=== PATIENT | male | born 1945 | race Two or more races ===

== ENCOUNTER → 2017-06-15 | Outpatient (CLI) | payer MEDICARE, OTHER ==
--- NOTE | 2017-06-15 21:00 | MR ---
EXAMINATION TYPE: MR lumbar spine wo con DATE OF EXAM: 06/15/2017 7:58 PM COMPARISON: NONE HISTORY: Rt side low back pain and leg pain, radiculopathy Multiplanar, MultiSpin echo imaging of the lumbar spine was performed. L1-L2: Mild disc desiccation noted. No herniation, protrusion or disc bulging. No canal stenosis is present. Foramina are patent bilaterally. L2-L3: Mild to moderate disc desiccation. Posterior disc bulge. No evidence for a disc herniation. Bi lateral foraminal encroachment with facet joint arthropathy right greater than left. L3-L4: Moderate disc desiccation. Mild posterior disc bulge. No herniation protrusion or central sten osis. Mild bilateral foraminal encroachment. Facet joint arthropathy. L4-L5: Moderate to severe disc desiccation. Extruded disc herniation with disc material extending pos terior centrally and towards the right. Disc material is seen posterior to the L5 superior endplate t o the right of midline. Sequestered component suspected measuring 11 x 9 mm. There is right lateral r ecess stenosis. Bilateral foraminal encroachment. No evidence for central stenosis. L5-S1: Grade 1 anterolisthesis L5 on S1 measuring 7.6 mm. Moderate to severe disc desiccation. Development And Housing Director ior disc bulge. No poornima herniation or central stenosis. Severe facet joint arthropathy. Lumbar segments are intact. No paraspinal masses are identified. Conus medullaris has a normal appe arance. Rudimentary S1-S2 disc. Endplate marrow changes. IMPRESSION: 1. Multilevel degenerative disc disease. 2. Extruded disc herniation with sequestered component L4-5. Right lateral recess stenosis. See above .
== END | disposition home or self-care (01) ==
LOC: RADMRIMAIN 18:42
PROVIDERS: ATTEND Family Medicine
DX: M48.061 Spinal stenosis, lumbar region without neurogenic claudication (principal); M51.17 Intervertebral disc disorders with radiculopathy, lumbosacral region; M43.16 Spondylolisthesis, lumbar region
CPT/HCPCS: 72148

== ENCOUNTER → 2017-11-03 | Outpatient (CLI) | payer MEDICARE, OTHER ==
[2017-11-03 10:24] LABS: HCT 45.5 % (39.0-53.0); HGB 15.2 gm/dL (13.0-17.5); MCH 32.3 pg (25.0-35.0); MCHC 33.5 g/dL (31.0-37.0); MCV 96.3 fL (80.0-100.0); Mean Platelet Volume 7.8; Platelet Count 199 k/uL (150-450); RBC 4.72 m/uL (4.30-5.90); RDW 12.8 % (11.5-15.5); WBC 5.4 k/uL (3.8-10.6)
[2017-11-03 10:31] LABS: INR 1.1 (<1.2); Partial Thromboplastin Time 25.9 sec (22.0-30.0); Prothrombin Time 10.5 sec (9.0-12.0)
--- NOTE | 2017-11-03 10:32 | XR ---
EXAMINATION TYPE: XR chest 2V DATE OF EXAM: 11/03/2017 COMPARISON: NONE TECHNIQUE: PA and lateral views submitted. HISTORY: Preop FINDINGS: The lungs are clear and there is no pneumothorax, pleural effusion, or focal pneumonia. Arthropathy of the shoulders. IMPRESSION: 1. No acute process.
[2017-11-03 10:41] LABS: Calcium 9.8 mg/dL (8.4-10.2); Potassium 4.5 mmol/L (3.5-5.1)
[2017-11-03 11:21] LABS: Amorphous Sediment,Urine Rare /hpf; Appearance,Urine Cloudy (Clear); Bilirubin,Urine Negative (Negative); Blood,Urine Negative (Negative); Color,Urine Yellow; Glucose,Urine (UA) Negative (Negative); Hyaline Casts,Urine 1 /lpf (0-2); Ketones,Urine Negative (Negative); Leukocyte Esterase,Urine Negative (Negative); Mucus,Urine Occasional /hpf; Nitrite,Urine Negative (Negative); PH, Urine 5.5 (5.0-8.0); Protein,Urine 1+ (Negative); RBC,Urine 3 /hpf (0-5); Specific Gravity,Urine 1.021 (1.001-1.035); Squamous Epithelial Cell,Urine <1 /hpf (0-4); Urobilinogen,Urine <2.0 mg/dL (<2.0); WBC,Urine 2 /hpf (0-5)
[2017-11-03 11:27] LABS: Band Neutrophils % 1 %; Eosinophils # (M) 0.16 k/uL (0-0.7); Lymphocytes # (M) 2.05 k/uL (1.0-4.8); Monocytes # (M) 0.97 k/uL (0-1.0); Neutrophils % (M) 40 %; Nucleated Red Blood Cells 0 /100 WBC (0-0); Total Cells Counted 100
== END | disposition home or self-care (01) ==
LOC: LABPAT 09:07
PROVIDERS: ATTEND Orthopaedic Surgery Orthopaedic Surgery of the Spine
DX: Z01.818 Encounter for other preprocedural examination (principal); Z01.812 Encounter for preprocedural laboratory examination; M48.00 Spinal stenosis, site unspecified
CPT/HCPCS: 71046; 80048; 81001; 85025; 85610; 85730; 87070; 93005

== ENCOUNTER 2017-11-16 10:48 | Inpatient (IN) | payer MEDICARE, OTHER ==
[~2017-11-16 10:48] MED LIST: BACITRACIN 50,000 UNIT, POLYMYXIN B 500,000 UNIT in SODIUM CHLORIDE 0.9% IRRIGATIO 1,00... IRRIGATION ONE; DEXAMETHASONE SOD PHOSPHATE 10 MG/ML 1 ML VIAL IV ONE; HYDROmorphone 0.5 MG/0.5 ML SYRINGE IVP PRN; LACTATED RINGERS 1,000 ML IV SCH; ONDANSETRON 4 MG/2 ML VIAL IVP ONE; ceFAZolin IN SWFI 2 GM/20 ML SYRINGE IVP ONE
[2017-11-16] MEDS ORDERED: LIDOCAINE 1% 20 ML VIAL (10MG/ML) FOR IV START INTRADERMA ONE (11:40)
[2017-11-16 11:48] LABS: Glucose,Whole Blood 116 mg/dL (75-99)
[2017-11-16] MEDS ORDERED: PHENYLEPHRINE-0.9% NACL SYG 1 MG/10 ML SYRINGE ONE (12:55)
[2017-11-16] MEDS ORDERED: MIDAZOLAM 2 MG/2 ML VIAL ONE (12:55)
[2017-11-16] MEDS ORDERED: PROPOFOL 10 MG/ML 20 ML VIAL IV ONE (12:55)
[2017-11-16] MEDS ORDERED: HEPARIN SODIUM,PORCINE 10,000 UNIT/ML 1 ML VIAL ONE (12:55)
[2017-11-16] MEDS ORDERED: SODIUM CHLORIDE 0.9% IRRIG 1,000 ML BTL IRRIGATION ONE (12:55)
[2017-11-16] MEDS ORDERED: SUCCINYLCHOLINE CHLORIDE 100 MG/5 ML SYR IV ONE (12:55)
[2017-11-16] MEDS ORDERED: fentaNYL (PF) 50 MCG/ML 2 ML AMP ONE (12:55)
[2017-11-16] MEDS ORDERED: LIDOCAINE 1% INJ 10MG/ML (20 ML MDV) ONE (12:55)
[2017-11-16] MEDS ORDERED: ePHEDrine SULFATE/0.9% NACL/PF 50 MG/5 ML SYRINGE IV ONE (12:55)
[2017-11-16] MEDS ORDERED: LACTATED RINGERS 1,000 ML IV ONE ×2 (13:00→14:50)
[2017-11-16] MEDS ORDERED: BUPIVACAINE-EPI 0.5%-1:200,000 10 ML VIAL SQ ONE (14:08)
[2017-11-16] MEDS ORDERED: GELATIN SPONGE,ABSORB (LARGE) 1 EACH SPONGE TOPICAL ONE (14:09)
[2017-11-16] MEDS ORDERED: THROMBIN (BOVINE) 5,000 UNIT VIAL TOPICAL ONE (14:09)
[2017-11-16] MEDS ORDERED: HYDROmorphone 1 MG/ML 1 ML SYRINGE IVP PRN (17:08)
[2017-11-16] MEDS ORDERED: BENZOCAINE/MENTHOL LOZENG 1 EACH LOZENGE MUCOUS MEM PRN (17:08)
[2017-11-16] MEDS ORDERED: MAGNESIUM HYDROXIDE 2,400 MG/10 ML CUP PO PRN (17:08)
[2017-11-16] MEDS ORDERED: oxyCODONE-APAP 5-325MG 1 EACH TAB PO PRN (17:11)
--- NOTE | 2017-11-16 17:18 | P.OP ---
Date of Procedure: 11/16/17 Preoperative Diagnosis: Spondylolisthesis L4 5 L5-S1 Herniated nucleus pulposis L4 5 L5-S1 Spinal stenosis L4 5 L5-S1 Low back pain Lower extremity radiculopathy Degenerative disc disease Facet arthrosis Postoperative Diagnosis: Same Anesthesia: GETA Pathology: none sent Condition: stable Disposition: PACU Description of Procedure: DESCRIPTION OF PROCEDURE(S): BRIEF OPERATIVE NOTE Preoperative Diagnosis: Spondylolisthesis L4 5 L5-S1 Herniated nucleus pulposis L4 5 L5-S1 Spinal stenosis L4 5 L5-S1 Low back pain Lower extremity radiculopathy Degenerative disc disease Facet arthrosis Postoperative Diagnosis: Same Procedure: Laminectomy and decompression with wide bilateral foraminotomy L4 5 L5-S1 Minimally invasive Posterior lateral decompression and facet fusion L4 5 L5-S1 Minimally invasive Transforaminal lumbar interbody fusion for a 360 fusion L4 5 L5-S1 Discectomy for decompression L4 5 L5-S1 Placement of interbody graft L4 5 L5-S1 Local autogenous bone grafting Aspiration of bone marrow aspirate. The pedicle of L4 vertebral body Use of Cell Saver Use of bone graft extenders Surgeon: Dr. Pereira Circuitry Negative Inspector: Khoa HEBERT who is present throughout the entire the case persistence during positioning, dissection, exposure, visualization, and all crucial elements of the case as well as closure. Anesthesia: General anesthesia Estimated blood loss: Approximately 500 mL with 160 given back through Cell Saver Complications: None apparent Components implanted: K2M minimally invasive [place] pedicle screw system with 6 screws measuring 6.5 mm in diameter to rods and 2 Chambers expandable interbody 9-12 cages with 1 osteo amp sponge and DBX bone fibers to supplement the local autogenous and bone marrow aspirate graft Disposition: To recovery room in good stable condition. OPERATIVE INDICATIONS The patient has had long-standing issues in their lower back and lower extremities. His found have severe stenosis with disc herniation and spondylolisthesis at L4-L5. He had significant degenerative changes and his findings correlate well with her low back and lower extremity symptoms. The patient has been through conservative treatment. He is not having any lasting benefit despite aggressive conservative treatment over extended period. We discussed various treatment options including surgery, and the patient wishes to proceed with surgery We discussed the risk, patient's alternatives and benefits of surgery including but not limited to, risk of bleeding risk of infection, risk of need for further surgery, risk of decreased, loss of motion, muscle function, malunion nonunion, hardware failure, nerve damage, paralysis, heart attack, blindness and . OPERATIVE SUMMARY After discussing all the risks, patient alternatives and benefits at length, the patient elected to proceed with surgical intervention, signed informed consent, and presented for their procedure. The patient was seen and examined in the preoperative holding area and the surgical site was marked. The patient was given antibiotics and brought to the operating room. The patient was sedated and intubated by anesthesia in standard fashion. The patient was positioned on to the operating room table in a prone position on the appropriate frame which was well-padded and well molded. We were careful to pad any bony prominences and pressure points. We were careful to maintain the patient's cervical spine and good neutral alignment and position throughout. The patient was prepped and draped in a normal standard fashion. An appropriate timeout and keystone protocol performed. We were able to proceed with the surgery. The local wound area was infiltrated with local anesthetic. I was able utilize C-arm guidance to establish appropriate position over the pedicles bilaterally at the appropriate levels at L4-L5 and S1. With the appropriate levels confirmed was able to make small stab incisions over the appropriate pedicle sites bilaterally. Utilizing C-arm in his house able to establish a Jamshidi needle over the lateral aspect of the pedicle and advanced the trocar into the pedicle being careful not to breech superiorly inferiorly medially or laterally. Position was confirmed regularly with AP and lateral images on C-arm. I was able to establish the trocar into the pedicle appropriately into the posterior aspect of the vertebral body bilaterally at the appropriate levels at L4 5 and S1. This was done at each of the pedicle positions and each of the vertebrae. I was able place the guidewire into the trocar and into the vertebral body appropriately under C-arm guidance. Dissection was taken down over the wire to the appropriate starting position for the screw placed. The appropriate length screw was chosen, threaded over the guidewire and screwed appropriately into the pedicle and vertebral body under C-arm guidance in excellent alignment and position with good bony purchase. This is done at each of the screw sites at the appropriate levels at L4-L5 and S1 bilaterally. With the screws intact I extended the incision to connect the screw hole sites on the most symptomatic side on the right. I dissected down to establish access over the pars and lamina to the base of the spinous process. I was able to expose the facet joint. The capsule the facet was taken down and showed some facet arthrosis at the joint. I was able to use a combination of curettes and Kerrison rongeurs and a high-speed drill to take down the facet joint and do a facetectomy. Partial laminectomy was also performed. I was able get excellent foraminal decompression and central decompression with undermining across midline to perform a laminectomy centrally and contralaterally. As able get good central decompression. The ligamentum flavum was taken down to further decompress centrally and at bilateral neural foramen. I was able to expose the disc space and visualize the traversing nerve root. Note was made of some disc protrusion at the level causing further compression of the nerve root. I was able to establish a annulotomy at the appropriate level protecting soft tissue and neural structures. Note was made of some disc desiccation at the disc. I performed a complete discectomy with accommodation of curettes and rasps and scrapers. I was able get good endplate preparation at the disc space. I sized for the appropriate size interbody spacer protecting the soft tissue and neural structures. The wound was copiously irrigated and suctioned dry. There is no evidence of any dural tear or leak. I was able to pack the disc space with local autogenous bone graft as well as a small amount of bone graft which was also placed into the interbody cage itself. Protecting the soft tissue structures and neural structures I was able place the interbody cage in good alignment and good position with good fit and fill at the interbody space. This was done first at L5-S1 and then similarly at L4 5. There was note of extruded disc fragment at L4 5 which was removed as well. The disc eyes were quite large and is able to fill them as best possible with the given between the pedicles. His issues was confirmed with C-arm guidance. Good hemostasis maintained. There is no evidence of any dural tear or leak. The wound was irrigated and suctioned dry. With the hardware intact, intraoperative C-arm imaging was again taken which showed good alignment and position of the hardware at the appropriate levels at L4 5 and S1. We were then able to measure, contour and place the rods and appropriate hardware bilaterally. I was able to place capcrews, tighten them down, and torque them with the torque screwdriver appropriately. With this intact I was able to place the local autogenous bone graft with additional bone graft enhancer as necessary into the posterior lateral gutters over the decorticated transverse processes. The remainder of the bone graft was placed over the facet joint on the contralateral side after taking down the facet joint capsule. With the bone graft intact, a stable construct, and good decompression at the appropriate levels, we were able to proceed with closure. Good hemostasis was maintained. There is no evidence of dural tear or leak. The fascia was closed for a watertight closure. he subcuticular tissue was closed with absorbable suture. The wound was cleaned and dried and dressed with the appropriate dressing. The drapes were broken down. The patient was gently rolled back onto their hospital bed being careful to maintain their cervical spine and good neutral alignment and position. They were woken up by anesthesia, extubated, and brought to the recovery room in good stable condition. The patient will be admitted to the hospital for appropriate postoperative care , medical management and monitoring. We will continue to follow them closely about the postoperative course.
[2017-11-16 20:13] VITALS: BMI 33.5
[2017-11-16] MEDS: SODIUM CHLORIDE 0.9% 1,000 ML IV SCH (20:13)
[2017-11-16] MEDS: traMADol 50 MG TAB PO SCH ×2 (20:14→23:38)
[2017-11-16] MEDS: HYDROmorphone 1 MG/ML 1 ML SYRINGE IVP PRN (21:29)
[2017-11-16] MEDS: ceFAZolin IN SWFI 2 GM/20 ML SYRINGE IVP SCH (23:39)
[2017-11-17] MEDS ORDERED: ceFAZolin 3 GM in SODIUM CHLORIDE 0.9% 100 ML IVPB SCH ×2
[2017-11-17] MEDS: HYDROmorphone 1 MG/ML 1 ML SYRINGE IVP PRN ×4 (01:30→17:06)
[2017-11-17] MEDS: ACETAMINOPHEN TAB 325 MG TAB PO PRN ×3 (02:34→20:14)
[2017-11-17] MEDS: SODIUM CHLORIDE 0.9% 1,000 ML IV SCH ×2 (08:04→20:14)
[2017-11-17] MEDS: traMADol 50 MG TAB PO SCH ×4 (08:25→22:25)
[2017-11-17] MEDS: SENNOSIDES-DOCUSATE SODIUM 1 EACH TAB PO SCH (08:27)
[2017-11-17] MEDS: ceFAZolin IN SWFI 2 GM/20 ML SYRINGE IVP SCH (08:27)
[2017-11-17 08:31] LABS: Basophils # (A) 0.1 k/uL (0-0.2); Basophils % (A) 1 %; Eosinophils # (A) 0.1 k/uL (0-0.7); Eosinophils % (A) 1 %; HCT 39.8 % (39.0-53.0); Lymphocytes # (A) 0.5 k/uL (1.0-4.8); Lymphocytes % (A) 5 %; MCH 32.2 pg (25.0-35.0); MCHC 32.7 g/dL (31.0-37.0); MCV 98.3 fL (80.0-100.0); Mean Platelet Volume 8.4; Monocytes % (A) 26 %; Neutrophils # (A) 6.7 k/uL (1.3-7.7); Neutrophils % (A) 64 %; Platelet Count 151 k/uL (150-450); RBC 4.05 m/uL (4.30-5.90); RDW 13.2 % (11.5-15.5); WBC 10.6 k/uL (3.8-10.6)
[2017-11-17 08:39] LABS: Calcium 8.7 mg/dL (8.4-10.2)
[2017-11-17 08:47] LABS: Potassium 5.5 mmol/L (3.5-5.1)
--- NOTE | 2017-11-17 09:06 | FL ---
EXAMINATION TYPE: FL guidance operating room, XR lumbar spine 2 or 3V DATE OF EXAM: 11/16/2017 COMPARISON: NONE HISTORY: 72-year-old male minimal invasive lumbar spine surgical procedure FINDINGS: Images during placement of L4-S1 posterior fusion hardware with interbody devices. Anterolisthesis at L5-S1 noted. FLUOROSCOPY Fluoroscopy time of 1 minute 8 seconds was used during lumbar spine procedure. 6 image/s document/s the procedure. IMPRESSION: Intraoperative fluoroscopy during posterior and interbody fusion from L4 through S1. Anterolisthesis at L5-S1.
[2017-11-17 10:43] LABS: Monocytes # (A) 2.7 k/uL (0-1.0)
[2017-11-17] MEDS ORDERED: SODIUM POLYSTYRENE SULFONATE 15 GM/60 ML BOTTLE PO STA (11:33)
--- NOTE | 2017-11-17 11:49 | P.CONS ---
History of Present Illness - Reason for Consult Consult date: 11/17/17 Medical management Requesting physician: Albert Pereira - Chief Complaint Spinal stenosis - History of Present Illness This is a 72-year-old male patient of Dr. Dong. Patient presented for an elective lumbar decompression fusion transforaminal lumbar interbody fusion of L4-L5 and L5- S1. Patient has a known past medical history of coronary artery , GERD, hyperlipidemia, hypertension and appendectomy. At this time patient is resting comfortably in bed. Patient does complain of moderate back pain. Patient is having low-grade temps. Patient does state that he is having burning with urination. Urinary analysis and urine culture have been ordered. Patient denies cough or upper respiratory symptoms. Patient denies nausea vomiting or diarrhea. Potassium 5.5. Patient's home medication of losartan potassium and dose of Kayexalate will be given. Review of Systems Please refer to HPI otherwise unremarkable Past Medical History Past Medical History: Coronary Artery Disease (CAD), GERD/Reflux, Hyperlipidemia , Hypertension, Musculoskeletal Disorder Additional Past Medical History / Comment(s): HX OF POLYP colon. LUMBAR PAIN. History of Any Multi-Drug Resistant Organisms: None Reported Past Surgical History: Appendectomy, Orthopedic Surgery Additional Past Surgical History / Comment(s): CHRIS ROTATOR CUFF, CHRIS CATARACT SX , LT CAROTID ENDARTECTOMY. COLONOSCOPY. EPIDURALS, LAST 08/2017. Lumbar fusion L4-S1 post transforaminal 11/16/17 Past Anesthesia/Blood Transfusion Reactions: Previous Problems w/ Anesthesia Additional Past Anesthesia/Blood Transfusion Reaction / Comm: B/P DROPPED POST OP Past Psychological History: No Psychological Hx Reported Smoking Status: Former smoker Past Alcohol Use History: Occasional Additional Past Alcohol Use History / Comment(s): SMOKED 25 YEARS, 2-3 PPD, QUIT 1992 Past Drug Use History: None Reported - Past Family History Sister(s) Family Medical History: Cancer Additional Family Medical History / Comment(s): BLADDER Medications and Allergies Home Medications Medication Instructions Recorded Confirmed Type Losartan Potassium 100 mg PO QAM 12/01/14 11/16/17 History Omeprazole [PriLOSEC] 20 mg PO DAILY 12/01/14 11/16/17 History amLODIPine [Norvasc] 5 mg PO QAM 12/01/14 11/16/17 History Aspirin [Adult Low Dose Aspirin EC] 81 mg PO DAILY 11/04/17 11/16/17 History Atorvastatin [Lipitor] 40 mg PO DAILY 11/04/17 11/16/17 History Cyclobenzaprine [Flexeril] 10 mg PO BID PRN 11/04/17 11/16/17 History Ibuprofen [Motrin Ib] 400 - 600 mg PO Q6H PRN 11/04/17 11/16/17 History Metoprolol Succinate [Toprol XL] 50 mg PO DAILY 11/04/17 11/16/17 History Gabapentin [Neurontin] 600 mg PO Q8HR PRN 11/10/17 11/16/17 History Allergies Allergy/AdvReac Type Severity Reaction Status Date / Time hydrocodone bitartrate AdvReac RACING Verified 11/16/17 17:18 [From Vicodin] HEART Physical Exam Vitals: Vital Signs Temp Pulse Pulse Resp BP BP Pulse Ox 11/17/17 07:52 99.0 F 101 H 20 147/69 98 11/17/17 05:00 99 F 72 18 132/60 93 L 11/17/17 02:00 99.1 F 11/17/17 00:00 100.4 F H 85 18 154/67 97 11/16/17 21:55 98.2 F 67 18 105/59 92 L 11/16/17 20:45 69 20 125/62 96 11/16/17 20:30 67 18 122/62 96 11/16/17 20:15 74 18 132/70 97 11/16/17 20:00 72 18 130/63 97 11/16/17 19:45 68 18 121/56 97 11/16/17 19:30 68 20 136/60 98 11/16/17 19:15 70 18 116/59 95 11/16/17 19:00 69 18 109/56 96 11/16/17 18:45 97.5 F L 80 22 114/57 95 11/16/17 18:15 77 16 118/60 96 11/16/17 18:04 77 16 113/60 99 11/16/17 17:47 73 16 115/63 99 11/16/17 17:31 75 16 127/59 98 11/16/17 17:21 98 F 82 16 117/87 96 Intake and Output 11/16/17 11/17/17 11/17/17 22:59 06:59 14:59 Intake Total 0 1075 Output Total 850 800 Balance -850 1075 -800 Intake: IV 0 Intake, IV Titration 675 Amount Sodium Chloride 0.9% 1, 675 000 ml @ 75 mls/hr IV . [id number] [facility] Rx#:[id number] Oral 400 Output: Urine 350 800 Estimated Blood Loss 500 Other: Voiding Method Urinal Incontinent # Voids 2 1 Weight 118.5 kg Head normocephalic Neck supple Lungs clear to auscultation bilaterally no wheezing or crackles Heart regular rate and rhythm S1-S2, no rub or gallop Abdomen is soft nontender nondistended positive bowel sounds no hepatosplenomegaly Extremities no edema Neuro alert and orientated to 3 Results CBC & Chem 7: 11/17/17 07:13 11/17/17 07:13 Labs: Abnormal Lab Results - Last 24 Hours (Table) 11/16/17 11/17/17 11/17/17 Range/Units 11:36 07:13 07:13 RBC 4.05 L (4.30-5.90) m/uL Lymphocytes # 0.5 L (1.0-4.8) k/uL Monocytes # 2.7 H (0-1.0) k/uL Potassium 5.5 H (3.5-5.1) mmol/L Carbon Dioxide 19 L (22-30) mmol/L Glucose 117 H (74-99) mg/dL POC Glucose (mg/dL) 116 H (75-99) mg/dL Assessment and Plan Assessment: 1. Status post lumbar decompression fusion transforaminal lumbar interbody fusion of L4-L5 and L5-S1 with Dr. Pereira. Patient is postop day 1. Patient does complain of moderate back pain at this time. Pain meds per surgical services. 2. Febrile. temp of 100.4. Patient is complaining of burning with urination. Urinalysis and urine culture have been ordered. 3. Hyperkalemia. Potassium 5.5. Kayexalate ordered. Home medication of losartan potassium held. Recheck ordered for 1800 today 4. History of essential hypertension, home medications of Norvasc and Lopressor resumed 5. History of GERD. 6. History of coronary artery disease DVT prophylaxis SCDs per surgical services. GI prophylaxis protonix Thank you for this consultation we will continue to follow patient closely throughout stay Time with Patient: Greater than 30 (Greater than 60% of the total time spent in counseling and coordination of care. I performed an examination of the patient and discussed their management with the Nurse Practitioner. I have reviewed the Nurse Practitioner's notes and agree with the documented findings and plan of care)
[2017-11-17 11:54] LABS: Appearance,Urine Clear (Clear); Bilirubin,Urine Negative (Negative); Blood,Urine Moderate (Negative); Color,Urine Yellow; Glucose,Urine (UA) Negative (Negative); Ketones,Urine Negative (Negative); Leukocyte Esterase,Urine Negative (Negative); Mucus,Urine Rare /hpf; Nitrite,Urine Negative (Negative); PH, Urine 5.5 (5.0-8.0); Protein,Urine Negative (Negative); RBC,Urine 21 /hpf (0-5); Specific Gravity,Urine 1.012 (1.001-1.035); Urobilinogen,Urine <2.0 mg/dL (<2.0); WBC,Urine 4 /hpf (0-5)
[2017-11-17] MEDS: GABAPENTIN 300 MG CAP PO PRN (20:36)
--- NOTE | 2017-11-17 21:04 | P.PN ---
Progress Note - Text Progress Note Date: 11/17/17 Orthopedic Spine Patient is a pleasant 72 year old male who is seen and examined at the bedside following posterior lateral decompression and fusion performed yesterday. Patient states they are doing ok postsurgically. He recently received Dilaudid and states his pain is currently controlled. He is drowsy. He has been experiencing posterior cervical pain postoperatively. He continues to experience right lower extremity radiculopathy. He was able to get out of bed yesterday but has not been out of bed yet today. Currently does not complain of nausea, vomiting, fever, or chills. Patient states pain has been adequately controlled. Patient is eating and voiding freely without difficulty. He has had some running with urination. Medicine has ordered a urinalysis with culture. Physical Exam Lumbar Fusion: Status post surgical day number 1 Patient is awake, alert, and oriented 3 Vital signs stable Good chest excursion with deep inspiration and expiration Abdomen soft nontender Dorsiflexion, plantarflexion, and extensor hallucis longus positive sustained bilaterally No signs or symptoms of DVT; no calf pain; pneumatic cuffs intact bilateral lower extremities Dressing is intact with blood over the dressing; no erythema, purulence, or signs of infection Neurovascularly intact bilaterally lower extremities Mild pain with palpation along the posterior cervical spine Assessment: L4-5 and L5-S1 minimally invasive posterior lateral decompression and fusion with transforaminal lumbar interbody fusion Low back pain Posterior cervical pain Plan: 1. Ambulate as tolerated; work with Physical Therapy to increase mobilization 2. Continue pain control with IV and oral medications 3. Dressing will be changed to Telfa and Tegaderm prior to patient working through therapy 4. Medical management can continue to manage patient for patient's other medical issues 5. We will continue to follow the patient closely 6. Patient can follow-up with Khoa Zarate PA-C or Dr. Joesph Pereira at [facility] in 2-3 weeks following discharge
[2017-11-18] MEDS: ACETAMINOPHEN TAB 325 MG TAB PO PRN ×4 (02:41→22:59)
[2017-11-18] MEDS: GABAPENTIN 300 MG CAP PO PRN ×3 (04:23→22:57)
[2017-11-18] MEDS: ONDANSETRON 4 MG/2 ML VIAL IVP PRN ×2 (07:37→17:31)
[2017-11-18] MEDS: SODIUM CHLORIDE 0.9% 1,000 ML IV SCH ×2 (08:26→22:45)
[2017-11-18] MEDS: traMADol 50 MG TAB PO SCH (08:28)
[2017-11-18] MEDS: PANTOPRAZOLE 40 MG TABLET PO SCH (08:29)
[2017-11-18] MEDS: amLODIPine 5 MG TAB PO SCH (08:29)
[2017-11-18] MEDS: ATORVASTATIN 40 MG TAB PO SCH (08:29)
[2017-11-18] MEDS: SENNOSIDES-DOCUSATE SODIUM 1 EACH TAB PO SCH (08:29)
[2017-11-18] MEDS: METOPROLOL SUCCINATE (ER) 50 MG TAB.ER.24H PO SCH (08:29)
[2017-11-18 10:27] LABS: ALT 33 U/L (21-72); AST 71 U/L (17-59); Albumin 3.2 g/dL (3.5-5.0); Alkaline Phosphatase 68 U/L (38-126); Anion Gap 10 mmol/L; Blood Urea Nitrogen 10 mg/dL (9-20); Calcium 8.6 mg/dL (8.4-10.2); Carbon Dioxide 28 mmol/L (22-30); Chloride 98 mmol/L (98-107); Glucose 157 mg/dL (74-99); Potassium 4.2 mmol/L (3.5-5.1); Sodium 136 mmol/L (137-145); Total Bilirubin 1.1 mg/dL (0.2-1.3); Total Protein 5.9 g/dL (6.3-8.2)
[2017-11-18 10:30] LABS: Basophils # (A) 0.1 k/uL (0-0.2); Basophils % (A) 1 %; Eosinophils # (A) 0.3 k/uL (0-0.7); Eosinophils % (A) 1 %; HCT 37.6 % (39.0-53.0); HGB 12.2 gm/dL (13.0-17.5); Lymphocytes # (A) 0.7 k/uL (1.0-4.8); Lymphocytes % (A) 4 %; MCH 31.3 pg (25.0-35.0); MCHC 32.4 g/dL (31.0-37.0); MCV 96.6 fL (80.0-100.0); Mean Platelet Volume 10.5; Monocytes % (A) 21 %; Neutrophils # (A) 13.5 k/uL (1.3-7.7); Neutrophils % (A) 71 %; Platelet Count 144 k/uL (150-450); RBC 3.89 m/uL (4.30-5.90); RDW 13.1 % (11.5-15.5)
[2017-11-18 10:51] LABS: Polychromasia Present
[2017-11-18] MEDS ORDERED: traMADol 50 MG TAB PO PRN ×2 (12:18→12:25)
--- NOTE | 2017-11-18 12:24 | P.PN ---
Progress Note - Text Progress Note Date: 11/18/17 Orthopedic Spine Patient is a pleasant 72 year old male who is seen and examined at the bedside following posterior lateral decompression and fusion performed Thursday. Patient states he has improved postsurgically as compared to yesterday. He is not currently experiencing significant pain at the surgical site. He denies any lower extremity radiculopathy bilaterally. He feels his legs have significantly improved postoperatively. Most significant complaint is ongoing posterior cervical pain. He has also been experiencing increased headaches since yesterday. He has been receiving Ultram for some control his symptoms. He is unable to take Edgar as it elevates his heart rate. Have been weaning the patient off of Dilaudid. He is eating and voiding without difficulty. He is not having significant burning with urination. He is passing gas but has not had a bowel movement. He has been able to ambulate the hallways with physical therapy. He continues to be seen by medicine. Physical Exam Lumbar Fusion: Status post surgical day number 2 Patient is awake, alert, and oriented 3 Vital signs stable Good chest excursion with deep inspiration and expiration Abdomen soft nontender Dorsiflexion, plantarflexion, and extensor hallucis longus positive sustained bilaterally No signs or symptoms of DVT; no calf pain; pneumatic cuffs intact bilateral lower extremities Dressing is clean, dry, and intact; no erythema, purulence, or signs of infection No significant pain with palpation over the surgical sites Neurovascularly intact bilaterally lower extremities No significant increased pain with palpation along the posterior cervical spine Assessment: L4-5 and L5-S1 minimally invasive posterior lateral decompression and fusion with transforaminal lumbar interbody fusion Low back pain Posterior cervical pain Headaches Plan: 1. Ambulate as tolerated; work with Physical Therapy to increase mobilization 2. Continue pain control with IV and oral medications; we are continuing to wean the patient off of Dilaudid IV. We will increase Ultram 50 mg 1-2 tabs every 6 hours as needed for pain. 3. Dressing has been changed to Telfa and Tegaderm; keep dressing intact. 4. Medical management can continue to manage patient for patient's other medical issues 5. We will continue to follow the patient closely 6. Patient can follow-up with Khoa Zarate PA-C or Dr. Joesph Pereira at [facility] in 2-3 weeks following discharge
--- NOTE | 2017-11-18 14:07 | P.PN ---
Subjective Progress Note Date: 11/18/17 This is a 72-year-old male patient of Dr. Dong. Patient presented for an elective lumbar decompression fusion transforaminal lumbar interbody fusion of L4-L5 and L5- S1. Patient has a known past medical history of coronary artery , GERD, hyperlipidemia, hypertension and appendectomy. At this time patient is resting comfortably in bed. Patient does complain of moderate back pain. Patient is having low-grade temps. Patient does state that he is having burning with urination. Urinary analysis and urine culture have been ordered. Patient denies cough or upper respiratory symptoms. Patient denies nausea vomiting or diarrhea. Potassium 5.5. Patient's home medication of losartan potassium and dose of Kayexalate will be given. On 11/18/2017 patient is currently alert and oriented 3. Patient is resting comfortably in bed. Repeat potassium improved to 4.2. White blood cell increasing to 19.0. At this time patient denies cough, sore throat or ear pain. Patient denies chest pain or shortness of breath. Patient did complain of burning with urination yesterday UA completed showing moderate amount of blood but negative for leukocyte Estrace. Urine culture completed showing no growth after 18 hours. Today patient denies any urinary burning or frequency. Patient denies any nausea vomiting or diarrhea. Objective - Vital Signs Vital signs: Vital Signs Temp 98.9 F 11/18/17 12:05 Pulse 78 11/18/17 12:05 Resp 20 11/18/17 12:05 BP 131/63 11/18/17 12:05 Pulse Ox 94 L 11/18/17 05:45 Intake & Output 11/17/17 11/18/17 11/18/17 18:59 06:59 18:59 Intake Total 1700 1075 Output Total 1260 230 Balance 440 1075 -230 Intake: Intake, IV Titration 600 675 Amount Sodium Chloride 0.9% 1, 600 675 000 ml @ 75 mls/hr IV . [id number] [facility] Rx#:[id number] Oral 1100 400 Output: Urine 1260 230 Other: Voiding Method Urinal Urinal Urinal Incontinent # Voids 4 1 1 - Exam Head normocephalic Neck supple Lungs clear to auscultation bilaterally no wheezing or crackles Heart regular rate and rhythm S1-S2, no rub or gallop Abdomen is soft nontender nondistended positive bowel sounds no hepatosplenomegaly Extremities no edema. Neuro alert and orientated to 3 Dressing to back clean dry and intact - Labs CBC & Chem 7: 11/18/17 09:39 11/18/17 09:39 Labs: Abnormal Lab Results - Last 24 Hours (Table) 11/18/17 11/18/17 Range/Units 09:39 09:39 WBC 19.0 H (3.8-10.6) k/uL RBC 3.89 L (4.30-5.90) m/uL Hgb 12.2 L (13.0-17.5) gm/dL Hct 37.6 L (39.0-53.0) % Plt Count 144 L (150-450) k/uL Neutrophils # 13.5 H (1.3-7.7) k/uL Lymphocytes # 0.7 L (1.0-4.8) k/uL Monocytes # 4.0 H (0-1.0) k/uL Sodium 136 L (137-145) mmol/L Glucose 157 H (74-99) mg/dL AST 71 H (17-59) U/L Total Protein 5.9 L (6.3-8.2) g/dL Albumin 3.2 L (3.5-5.0) g/dL Microbiology - Last 24 Hours (Table) 11/17/17 10:45 Urine Culture - Final Urine,Voided Assessment and Plan Assessment: 1. Status post lumbar decompression fusion transforaminal lumbar interbody fusion of L4-L5 and L5-S1 with Dr. Pereira. Patient is postop day 1. Patient does complain of moderate back pain at this time. Pain meds per surgical services. 2. Febrile. temp of 100.4. Patient is complaining of burning with urination. Urinalysis and urine culture have been ordered. Urinalysis completed showing moderate amount of blood but negative for leukocyte esterase. Urine culture negative. Patient has remained afebrile 3. Hyperkalemia. Potassium 5.5. Kayexalate ordered. Home medication of losartan potassium held. Recheck ordered for 1800 today 4. History of essential hypertension, home medications of Norvasc and Lopressor resumed 5. History of GERD. 6. History of coronary artery disease 7. Leukocytosis. White blood cell increasing to 19.0. Patient denies any symptoms at this time. Blood and sputum cultures have been ordered. Dr. Duran consulted for infectious disease. Urine culture negative DVT prophylaxis SCDs per surgical services. GI prophylaxis protonix Thank you for this consultation we will continue to follow patient closely throughout stay
--- NOTE | 2017-11-18 21:29 | P.CONS ---
History of Present Illness - Reason for Consult Consult date: 11/18/17 - Chief Complaint back pain with radiculopathy - History of Present Illness Pleasant 72-year-old male who is had a many month history of increasing back pain that has been associated with increasing weakness of his left lower extremity. The patient had evaluations revealed evidence of spinal stenosis and consequently he was taken to the operating room and underwent laminectomy and decompression with foraminotomy L4 L5 S1 and underwent a transforaminal lumbar interbody fusion as well as discectomy. Postoperatively the patient had marked improvement of his weakness and numbness to the left leg. However started developed a bit of a headache which worsened. There is evidence of leukocytosis and with this the infectious diseases consultation was requested. At this time this pleasant gentleman is feeling somewhat better and is able to rest much better than he has throughout the day. He's had no significant fevers or chills there has been no rigors and no other acute new symptoms. He's been able to sit at the side of the bed and ambulate within his room without great difficulties. There's been no complaint of significant drainage from the surgical wound. Review of Systems HEENT:complaints of headache but no acute visual change. Denies sinus or mouth discomforts. Denies neck stiffness or pain. Denies significant oral cavity pain. Denies difficulty on swallowing. Lungs: Denies significant shortness of breath, cough, sputum production, or hemoptysis. Cardiovascular: Denies significant shortness of breath, chest pain, chest wall pain, orthopnea, dyspnea on exertion, syncope Gastrointestinal:Denies nausea, vomiting, diarrhea, constipation, hematemesis, melena, hematochezia. No no significant change of bowel habit noticed. Musculoskeletal: is having significant back pain and difficulty with the left lower extremity now improving postoperatively Skin: Denies new rash or lesions. No new ulcers or wounds are related.. Neuro: Denies headache or visual change. Denies any new onset weakness or difficulty with ambulation. Denies falls or seizures. Psychiatric:Denies anxiety or depression. Endocrine: Denies significant fatigue, denies significant weight loss or weight gain. Past Medical History Past Medical History: Coronary Artery Disease (CAD), GERD/Reflux, Hyperlipidemia , Hypertension, Musculoskeletal Disorder Additional Past Medical History / Comment(s): HX OF POLYP colon. LUMBAR PAIN. History of Any Multi-Drug Resistant Organisms: None Reported Past Surgical History: Appendectomy, Orthopedic Surgery Additional Past Surgical History / Comment(s): CHRIS ROTATOR CUFF, CHRIS CATARACT SX , LT CAROTID ENDARTECTOMY. COLONOSCOPY. EPIDURALS, LAST 08/2017. Lumbar fusion L4-S1 post transforaminal 11/16/17 Past Anesthesia/Blood Transfusion Reactions: Previous Problems w/ Anesthesia Additional Past Anesthesia/Blood Transfusion Reaction / Comm: B/P DROPPED POST OP Past Psychological History: No Psychological Hx Reported Additional Psychological History / Comment(s): and lives in the family home with his . Retired dairy truck driver. Was in the [employer] and was stationed in [email or web address] without specific illnesses, no known agent orange exposure. No current tobacco smoker or alcohol user. No international travel since his days. No animals in the home Smoking Status: Former smoker Past Alcohol Use History: Occasional Additional Past Alcohol Use History / Comment(s): SMOKED 25 YEARS, 2-3 PPD, QUIT 1992 Past Drug Use History: None Reported - Past Family History Sister(s) Family Medical History: Cancer Additional Family Medical History / Comment(s): BLADDER Medications and Allergies Home Medications and Allergies Comment(s): Current Medications Acetaminophen (Tylenol Tab) 650 mg PO Q6HR PRN PRN Reason: Fever and/ or Pain Last Admin: 11/18/17 17:31 Dose: 650 mg Amlodipine Besylate (Norvasc) 5 mg PO QAM [facility] Last Admin: 11/18/17 08:29 Dose: 5 mg Atorvastatin Calcium (Lipitor) 40 mg PO DAILY [facility] Last Admin: 11/18/17 08:29 Dose: 40 mg Benzocaine/Menthol (Cepacol Lozenge) 1 each MUCOUS MEM Q4HR PRN PRN Reason: Sore Throat Gabapentin (Neurontin) 600 mg PO Q8HR PRN PRN Reason: Pain Last Admin: 11/18/17 12:55 Dose: 600 mg Hydromorphone HCl (Dilaudid) 0.5 mg IVP Q4HR PRN PRN Reason: Moderate Pain Hydromorphone HCl (Dilaudid) 1 mg IVP Q4HR PRN PRN Reason: Severe Pain Last Admin: 11/17/17 17:06 Dose: 1 mg Sodium Chloride (Saline 0.9%) 1,000 mls @ 75 mls/hr IV .[id number] [facility] Last Admin: 11/18/17 08:26 Dose: Not Given Magnesium Hydroxide (Milk Of Magnesia) 2,400 mg PO DAILY PRN PRN Reason: Constipation Metoprolol Succinate (Toprol Xl) 50 mg PO DAILY [facility] Last Admin: 11/18/17 08:29 Dose: 50 mg Ondansetron HCl (Zofran) 4 mg IVP Q8HR PRN PRN Reason: Nausea And Vomiting Last Admin: 11/18/17 17:31 Dose: 4 mg Oxycodone/Acetaminophen (Percocet 5-325) 1 each PO Q4HR PRN PRN Reason: Moderate Pain Pantoprazole Sodium (Protonix) 40 mg PO -BRKFST [facility] Last Admin: 11/18/17 08:29 Dose: 40 mg Senna/Docusate Sodium (Senokot-S) 1 each PO DAILY [facility] Last Admin: 11/18/17 08:29 Dose: 1 each Tramadol HCl (Ultram) 50 mg PO QID PRN PRN Reason: Pain Tramadol HCl (Ultram) 100 mg PO QID PRN PRN Reason: Pain Home Medications Medication Instructions Recorded Confirmed Type Losartan Potassium 100 mg PO QAM 12/01/14 11/16/17 History Omeprazole [PriLOSEC] 20 mg PO DAILY 12/01/14 11/16/17 History amLODIPine [Norvasc] 5 mg PO QAM 12/01/14 11/16/17 History Aspirin [Adult Low Dose Aspirin EC] 81 mg PO DAILY 11/04/17 11/16/17 History Atorvastatin [Lipitor] 40 mg PO DAILY 11/04/17 11/16/17 History Cyclobenzaprine [Flexeril] 10 mg PO BID PRN 11/04/17 11/16/17 History Ibuprofen [Motrin Ib] 400 - 600 mg PO Q6H PRN 11/04/17 11/16/17 History Metoprolol Succinate [Toprol XL] 50 mg PO DAILY 11/04/17 11/16/17 History Gabapentin [Neurontin] 600 mg PO Q8HR PRN 11/10/17 11/16/17 History Allergies Allergy/AdvReac Type Severity Reaction Status Date / Time hydrocodone bitartrate AdvReac RACING Verified 11/16/17 17:18 [From Vicodin] HEART Physical Exam Vitals: Vital Signs Temp Pulse Pulse Pulse Resp BP BP 11/18/17 16:00 70 80 78 20 11/18/17 12:05 98.9 F 78 20 131/63 11/18/17 10:38 70 11/18/17 08:00 80 18 11/18/17 05:45 98.3 F 80 18 164/81 Pulse Ox 11/18/17 16:00 11/18/17 12:05 11/18/17 10:38 11/18/17 08:00 11/18/17 05:45 94 L Intake and Output 11/18/17 11/18/17 11/18/17 06:59 14:59 22:59 Intake Total 1075 720 120 Output Total 230 Balance 1075 490 120 Intake: Intake, IV Titration 675 0 Amount Sodium Chloride 0.9% 1, 675 0 000 ml @ 75 mls/hr IV . [id number] [facility] Rx#:[id number] Oral 400 720 120 Output: Urine 230 Other: Voiding Method Urinal Urinal Urinal # Voids 1 3 3 pleasant 78-year-old gentleman was resting without difficulties upon arrival HEENT: Anicteric conjunctiva are pink and moist nasal mucosa grossly intact without significant lesions, there is no thrush. Neck: The neck is supple without significant lymphadenopathy or thyromegaly. Lungs: Good bilateral air entry without significant crackles or wheezing. There is no significant bronchial sounds. There is no egophony or dullness. Heart: Regular rate and rhythm with an audible S1-S2, no S3 no S4. There is no significant murmur click or rub, PMI was nondisplaced. Abdomen: Positive bowel sounds soft and nontender without palpable masses or organomegaly. There was no guarding or rebound. Extremities: The upper extremities have excellent pulses they are symmetric, no significant petechiae or telangiectasia. No splinter hemorrhages were noted. The lower extremities are free from significant edema. The peripheral pulses were 2+ and symmetric. Neuro: resting but no acute changes are noted. Dressing is in place without drainage. Results CBC & Chem 7: 11/18/17 09:39 11/18/17 09:39 Labs: Abnormal Lab Results - Last 24 Hours (Table) 11/18/17 11/18/17 Range/Units 09:39 09:39 WBC 19.0 H (3.8-10.6) k/uL RBC 3.89 L (4.30-5.90) m/uL Hgb 12.2 L (13.0-17.5) gm/dL Hct 37.6 L (39.0-53.0) % Plt Count 144 L (150-450) k/uL Neutrophils # 13.5 H (1.3-7.7) k/uL Lymphocytes # 0.7 L (1.0-4.8) k/uL Monocytes # 4.0 H (0-1.0) k/uL Sodium 136 L (137-145) mmol/L Glucose 157 H (74-99) mg/dL AST 71 H (17-59) U/L Total Protein 5.9 L (6.3-8.2) g/dL Albumin 3.2 L (3.5-5.0) g/dL Microbiology - Last 24 Hours (Table) 11/17/17 10:45 Urine Culture - Final Urine,Voided Laboratory Results WBC 19.0 k/uL (3.8-10.6) H 11/18/17 09:39 RBC 3.89 m/uL (4.30-5.90) L 11/18/17 09:39 Hgb 12.2 gm/dL (13.0-17.5) L 11/18/17 09:39 Hct 37.6 % (39.0-53.0) L 11/18/17 09:39 MCV 96.6 fL (80.0-100.0) 11/18/17 09:39 MCH 31.3 pg (25.0-35.0) 11/18/17 09:39 MCHC 32.4 g/dL (31.0-37.0) 11/18/17 09:39 RDW 13.1 % (11.5-15.5) 11/18/17 09:39 Plt Count 144 k/uL (150-450) L 11/18/17 09:39 Neutrophils % 71 % 11/18/17 09:39 Lymphocytes % 4 % 11/18/17 09:39 Monocytes % 21 % 11/18/17 09:39 Eosinophils % 1 % 11/18/17 09:39 Basophils % 1 % 11/18/17 09:39 Neutrophils # 13.5 k/uL (1.3-7.7) H 11/18/17 09:39 Lymphocytes # 0.7 k/uL (1.0-4.8) L 11/18/17 09:39 Monocytes # 4.0 k/uL (0-1.0) H 11/18/17 09:39 Eosinophils # 0.3 k/uL (0-0.7) 11/18/17 09:39 Basophils # 0.1 k/uL (0-0.2) 11/18/17 09:39 Manual Slide Review Performed 11/18/17 09:39 Polychromasia Present 11/18/17 09:39 Sodium 136 mmol/L (137-145) L 11/18/17 09:39 Potassium 4.2 mmol/L (3.5-5.1) 11/18/17 09:39 Chloride 98 mmol/L (98-107) 11/18/17 09:39 Carbon Dioxide 28 mmol/L (22-30) 11/18/17 09:39 Anion Gap 10 mmol/L 11/18/17 09:39 BUN 10 mg/dL (9-20) 11/18/17 09:39 Creatinine 0.69 mg/dL (0.66-1.25) 11/18/17 09:39 Est GFR (CKD-EPI)AfAm >90 (>60 ml/min/1.73 sqM) 11/18/17 09:39 Est GFR (CKD-EPI)NonAf >90 (>60 ml/min/1.73 sqM) 11/18/17 09:39 Glucose 157 mg/dL (74-99) H 11/18/17 09:39 POC Glucose (mg/dL) 116 mg/dL (75-99) H 11/16/17 11:36 POC Glu Mixing Machine Tender Cork Gasket LILLIAN Lashanda Hoang 11/16/17 11:36 Calcium 8.6 mg/dL (8.4-10.2) 11/18/17 09:39 Total Bilirubin 1.1 mg/dL (0.2-1.3) 11/18/17 09:39 AST 71 U/L (17-59) H 11/18/17 09:39 ALT 33 U/L (21-72) 11/18/17 09:39 Alkaline Phosphatase 68 U/L (38-126) 11/18/17 09:39 Total Protein 5.9 g/dL (6.3-8.2) L 11/18/17 09:39 Albumin 3.2 g/dL (3.5-5.0) L 11/18/17 09:39 Urine Color Yellow 11/17/17 10:45 Urine Appearance Clear (Clear) 11/17/17 10:45 Urine pH 5.5 (5.0-8.0) 11/17/17 10:45 Ur Specific [place] 1.012 (1.001-1.035) 11/17/17 10:45 Urine Protein Negative (Negative) 11/17/17 10:45 Urine Glucose (UA) Negative (Negative) 11/17/17 10:45 Urine Ketones Negative (Negative) 11/17/17 10:45 Urine Blood Moderate (Negative) H 11/17/17 10:45 Urine Nitrite Negative (Negative) 11/17/17 10:45 Urine Bilirubin Negative (Negative) 11/17/17 10:45 Urine Urobilinogen <2.0 mg/dL (<2.0) 11/17/17 10:45 Ur Leukocyte Esterase Negative (Negative) 11/17/17 10:45 Urine RBC 21 /hpf (0-5) H 11/17/17 10:45 Urine WBC 4 /hpf (0-5) 11/17/17 10:45 Urine Mucus Rare /hpf (None) H 11/17/17 10:45 Blood Type O Positive 11/12/17 11:04 Blood Type Confirm O Positive 11/16/17 11:35 Blood Type Recheck CABO Indicated 11/12/17 11:04 Antibody Screen NEGATIVE 11/12/17 11:04 Spec Expiration Date 11/18/2017230311/12/17 11:04 Microbiology 11/17/17 10:45 Urine,Voided Urine Culture - Final Assessment and Plan (1) Spinal stenosis Current Visit: Yes Status: Acute Code(s): M48.00 - SPINAL STENOSIS, SITE UNSPECIFIED SNOMED Code(s): 60990666 (2) Leukocytosis Narrative/Plan: Pleasant 72-year-old male presented to Hospital for his elective spinal surgery for his spinal stenosis. Surgery went well he overspent having a post surgical headache and there is evidence of leukocytosis. With these concerns the infectious diseases consultation was requested. The patient has had a T-max of 100.4 since his admission. No other sensations of fever or chills have occurred. The patient received some Tylenol and he is able to rest quite readily with this. At this time there is no evidence of any underlying infection likely just postoperative and will be rechecked in the morning. If headache continues will offer some Fioricet. We'll monitor fever and how he is responding. If headache continues to worsen with discussed with orthopedic spine the possibility of dural leak resulting in a spinal headache. Current Visit: Yes Status: Acute Code(s): D72.829 - ELEVATED WHITE BLOOD CELL COUNT, UNSPECIFIED SNOMED Code(s): 514536099 (3) Generalized headache Current Visit: Yes Status: Acute Code(s): R51 - HEADACHE SNOMED Code(s): 535607070
[2017-11-18 21:33] VITALS: RESP 16
[2017-11-19] MEDS: BUTALB/APAP/CAFF 50-325-40MG TAB PO PRN ×2 (05:53→10:23)
[2017-11-19] MEDS: GABAPENTIN 300 MG CAP PO PRN ×2 (07:33→16:17)
[2017-11-19] MEDS: amLODIPine 5 MG TAB PO SCH (07:33)
[2017-11-19] MEDS: ATORVASTATIN 40 MG TAB PO SCH (07:33)
[2017-11-19] MEDS: PANTOPRAZOLE 40 MG TABLET PO SCH (07:33)
[2017-11-19] MEDS: SENNOSIDES-DOCUSATE SODIUM 1 EACH TAB PO SCH (07:33)
[2017-11-19] MEDS: METOPROLOL SUCCINATE (ER) 50 MG TAB.ER.24H PO SCH (07:33)
[2017-11-19 07:50] LABS: Basophils # (A) 0.1 k/uL (0-0.2); Basophils % (A) 1 %; Eosinophils # (A) 0.2 k/uL (0-0.7); Eosinophils % (A) 2 %; HCT 35.1 % (39.0-53.0); HGB 11.7 gm/dL (13.0-17.5); Lymphocytes # (A) 0.5 k/uL (1.0-4.8); Lymphocytes % (A) 4 %; MCH 31.6 pg (25.0-35.0); MCHC 33.2 g/dL (31.0-37.0); MCV 95.2 fL (80.0-100.0); Mean Platelet Volume 10.5; Monocytes % (A) 15 %; Neutrophils # (A) 10.3 k/uL (1.3-7.7); Neutrophils % (A) 77 %; Platelet Count 159 k/uL (150-450); RBC 3.69 m/uL (4.30-5.90); RDW 12.8 % (11.5-15.5); WBC 13.5 k/uL (3.8-10.6)
[2017-11-19 07:59] LABS: ALT 35 U/L (21-72); AST 51 U/L (17-59); Alkaline Phosphatase 67 U/L (38-126); Anion Gap 7 mmol/L; Blood Urea Nitrogen 12 mg/dL (9-20); Calcium 8.5 mg/dL (8.4-10.2); Carbon Dioxide 28 mmol/L (22-30); Chloride 99 mmol/L (98-107); Glucose 118 mg/dL (74-99); Potassium 3.5 mmol/L (3.5-5.1); Sodium 134 mmol/L (137-145); Total Bilirubin 1.1 mg/dL (0.2-1.3); Total Protein 5.6 g/dL (6.3-8.2)
[2017-11-19] MEDS ORDERED: Potassium Replacement Protocol 1 EACH MISC MISCELLANE PRN (08:28)
--- NOTE | 2017-11-19 08:33 | P.DS ---
Providers Date of admission: 11/16/17 10:48 Attending physician: Albert Pereira Consults: 11/16/17 17:09 Consult Physician Routine Consulting Provider: Larry Stringer Consult Reason/Comments: Medical management Do you want consulting provider notified?: Already Contacted 11/18/17 13:29 Consult Physician Routine Consulting Provider: Guicho Duran Reason/Comments: Leukocytosis Do you want consulting provider notified?: Yes Primary care physician: Loida Dong Hospital Course: The patient presented on the day of admission as per his operative note. He had significant spinal stenosis with degenerative disc disease with lower extremity radiculopathy overextended. Particularly at L4 5 and L5-S1. He does not through extensive conservative treatment however had failed conservative management and ultimately underwent minimally invasive decompression and fusion at L4 and L4 5 as per his operative note. Postoperatively his pain at his back has made improvements. He feels his legs are doing well. His main issue was that of headaches postoperatively. He was able to mobilize. He was not having positional headaches. He is having headaches when he was laying down or standing up. They did not correlate with spinal headaches. Yesterday he was started on some Fioricet by Dr. Duran and he says that that has made a great difference for him in terms of his headaches and he has had great improvement. He is passing gas but has not yet had a bowel movement. He feels his appetite has significant improved today and was able to use a good breakfast. Physical Exam The incision site is clean dry and intact. There is no erythema no drainage. There is no purulence no evidence of infection. There is no active drainage. Abdomen soft and nontender. Chest has good excursion with deep inspiration and expiration. The patient has active and passive range of motion intact at the upper and lower extremities. There is no acute change in neurologic status. He has good strength grossly plantarflexion and EHL. He is amatory in his room. He had a white count of 19 but today it is 13 Hospital Course Postoperative day #3 status post minimally invasive decompression and fusion L4 5 L5-S1 for spinal stenosis with lower extremity radiculopathy and neurogenic claudication. Postoperative headaches which seem to be resolving well with Fioricet. They do not appear to be due to spinal leak and are non-positional. Leukocytosis without obvious infectious etiology and no evidence of active infection The patient is making progress with his back and lower extremity issues. His headaches seem to be resolving well with Fioricet. He does not have positional headaches and is able to sit upright and stand well without generating headache symptoms. I do not think that he has spinal headaches. I think it'll be okay for him to be sent home with oral Fioricet as needed for headaches and continued gabapentin as he has been taking for pain. They have completed the prophylactic antibiotics without any signs or symptoms of infection. His leukocytosis has improved since yesterday and I do not see an obvious source of infection for him. The patient has been able to advance their diet, and is tolerating diet adequately. The pain was initially controlled with IV medications and is now controlled appropriately with oral medications. The patient has been able to increase their mobilization. The patient has progressed appropriately. I think they are in good stable condition for discharge today if he is able have a bowel movement and he is clear with medicine. They will be sent home with appropriate prescriptions Fioricet and gabapentin. I answered their questions to the best of my ability in a language that they can understand and they are agreeable with the plan. They will follow up as directed in approximately 2 weeks or sooner if he is having problems. Patient Condition at Discharge: Good Plan - Discharge Summary Discharge Rx Participant: No New Discharge Prescriptions: New [place]/APAP/Caff 50-325-40Mg [Fioricet 50-325-40] 1 tab PO Q4H PRN #90 tablet PRN Reason: Headache Gabapentin [Neurontin] 600 mg PO TID #90 tab No Action amLODIPine [Norvasc] 5 mg PO QAM Omeprazole [PriLOSEC] 20 mg PO DAILY Los[facility] Potassium 100 mg PO QAM Aspirin [Adult Low Dose Aspirin EC] 81 mg PO DAILY Atorvastatin [Lipitor] 40 mg PO DAILY Cyclobenzaprine [Flexeril] 10 mg PO BID PRN PRN Reason: Muscle Pain Ibuprofen [Motrin Ib] 400 - 600 mg PO Q6H PRN PRN Reason: Pain Metoprolol Succinate [Toprol XL] 50 mg PO DAILY Gabapentin [Neurontin] 600 mg PO Q8HR PRN PRN Reason: Pain Discharge Medication List Losartan Potassium 100 mg PO QAM 12/01/14 [History] Omeprazole [PriLOSEC] 20 mg PO DAILY 12/01/14 [History] amLODIPine [Norvasc] 5 mg PO QAM 12/01/14 [History] Aspirin [Adult Low Dose Aspirin EC] 81 mg PO DAILY 11/04/17 [History] Atorvastatin [Lipitor] 40 mg PO DAILY 11/04/17 [History] Cyclobenzaprine [Flexeril] 10 mg PO BID PRN 11/04/17 [History] Ibuprofen [Motrin Ib] 400 - 600 mg PO Q6H PRN 11/04/17 [History] Metoprolol Succinate [Toprol XL] 50 mg PO DAILY 11/04/17 [History] Gabapentin [Neurontin] 600 mg PO Q8HR PRN 11/10/17 [History] Butalb/APAP/Caff 50-325-40Mg [Fioricet 50-325-40] 1 tab PO Q4H PRN #90 tablet [Rx] Gabapentin [Neurontin] 600 mg PO TID #90 tab 11/19/17 [Rx] Follow up Appointment(s)/Referral(s): Khoa Zarate, JOSE RAUL [PHYSICIAN SYSTEMS ENG] - 2 Weeks (Patient may follow-up with Khoa Zarate PA-C or Dr. Joesph Pereira at [facility] in 2-3 weeks following discharge. ) Activity/Diet/Wound Care/Special Instructions: 1. Patient may shower with Tegaderm dressing intact. 2. Patient may remove Tegaderm dressing in 3 days and shower without a dressing at that time. 3. Patient should keep Steri-Strips intact and allow them to fall off naturally. 4. Patient should refrain from driving until at least after their first follow- up appointment in the office. 5. Patient should avoid excessive bending, twisting, and lifting; no lifting greater than 10 pounds 6. Take medications as prescribed 7. Do not soak in tub Discharge Disposition: HOME SELF-CARE
[2017-11-19] MEDS ORDERED: POTASSIUM CHLORIDE ER 20 MEQ TAB.ER PO SCH (09:00)
--- NOTE | 2017-11-19 13:14 | P.PN ---
Subjective Progress Note Date: 11/19/17 This is a 72-year-old male patient of Dr. Dong. Patient presented for an elective lumbar decompression fusion transforaminal lumbar interbody fusion of L4-L5 and L5- S1. Patient has a known past medical history of coronary artery , GERD, hyperlipidemia, hypertension and appendectomy. At this time patient is resting comfortably in bed. Patient does complain of moderate back pain. Patient is having low-grade temps. Patient does state that he is having burning with urination. Urinary analysis and urine culture have been ordered. Patient denies cough or upper respiratory symptoms. Patient denies nausea vomiting or diarrhea. Potassium 5.5. Patient's home medication of losartan potassium and dose of Kayexalate will be given. On 11/18/2017 patient is currently alert and oriented 3. Patient is resting comfortably in bed. Repeat potassium improved to 4.2. White blood cell increasing to 19.0. At this time patient denies cough, sore throat or ear pain. Patient denies chest pain or shortness of breath. Patient did complain of burning with urination yesterday UA completed showing moderate amount of blood but negative for leukocyte Estrace. Urine culture completed showing no growth after 18 hours. Today patient denies any urinary burning or frequency. Patient denies any nausea vomiting or diarrhea. On 11/19/2017 patient is alert and oriented 3. Patient states headaches are improving with the fiorcet. White blood cell improving to 13.5. Patient has been cleared for discharge from orthopedic surgeon. Discussed case with infectious disease nruse practitioner okay to discharge patient at this time. Patient denies chest pain or shortness breath. Patient denies nausea vomiting or diarrhea. Patient denies any urinary burning or frequency. Dressing to lower back clean dry and intac Objective - Vital Signs Vital signs: Vital Signs Temp 98.3 F 11/19/17 06:50 Pulse 83 11/19/17 08:00 Resp 16 11/19/17 08:00 BP 156/83 11/19/17 06:50 Pulse Ox 93 L 11/19/17 06:50 Intake & Output 11/18/17 11/19/17 11/19/17 18:59 06:59 18:59 Intake Total 720 120 120 Output Total 230 230 Balance 490 120 -110 Weight 118.5 kg Intake: Intake, IV Titration 0 Amount Sodium Chloride 0.9% 1, 0 000 ml @ 75 mls/hr IV . [id number] [facility] Rx#:[id number] Oral 720 120 120 Output: Urine 230 230 Other: Voiding Method Urinal Toilet Toilet Urinal Urinal # Voids 3 1 1 - Exam Head normocephalic Neck supple Lungs clear to auscultation bilaterally no wheezing or crackles Heart regular rate and rhythm S1-S2, no rub or gallop Abdomen is soft nontender nondistended positive bowel sounds no hepatosplenomegaly Extremities no edema. Neuro alert and orientated to 3 Dressing to back clean dry and intact - Labs CBC & Chem 7: 11/19/17 07:02 11/19/17 07:02 Labs: Abnormal Lab Results - Last 24 Hours (Table) 11/19/17 11/19/17 Range/Units 07:02 07:02 WBC 13.5 H (3.8-10.6) k/uL RBC 3.69 L (4.30-5.90) m/uL Hgb 11.7 L (13.0-17.5) gm/dL Hct 35.1 L (39.0-53.0) % Neutrophils # 10.3 H (1.3-7.7) k/uL Lymphocytes # 0.5 L (1.0-4.8) k/uL Monocytes # 2.0 H (0-1.0) k/uL Sodium 134 L (137-145) mmol/L Glucose 118 H (74-99) mg/dL Total Protein 5.6 L (6.3-8.2) g/dL Albumin 3.0 L (3.5-5.0) g/dL Microbiology - Last 24 Hours (Table) 11/17/17 10:45 Urine Culture - Final Urine,Voided Assessment and Plan Assessment: 1. Status post lumbar decompression fusion transforaminal lumbar interbody fusion of L4-L5 and L5-S1 with Dr. Pereira. Patient is postop day 2. Patient does complain of moderate back pain at this time. Pain meds per surgical services. 2. Febrile. temp of 100.4. Patient is complaining of burning with urination. Urinalysis and urine culture have been ordered. Urinalysis completed showing moderate amount of blood but negative for leukocyte esterase. Urine culture negative. Patient has remained afebrile 3. Hyperkalemia. Potassium 5.5. Kayexalate ordered. Home medication of losartan potassium held. Potassium level III.5. Patient will be discharged home on his losartan potassium 4. History of essential hypertension, home medications of Norvasc and Lopressor resumed 5. History of GERD. 6. History of coronary artery disease 7. Leukocytosis. White blood cell increasing to 19.0. Patient denies any symptoms at this time. Blood and sputum cultures have been ordered. Dr. Duran consulted for infectious disease. Urine culture negative. White blood cell improving to 13.5. Patient has remained afebrile. Per Dr. Duran with infectious disease there is no evidence of any underlying infection likely just postoperative. Urine culture negative. CBC has been ordered for 2 days upon discharge. Patient to follow-up closely with PCP DVT prophylaxis SCDs per surgical services. GI prophylaxis protonix Thank you for this consultation we will continue to follow patient closely throughout stay
[2017-11-19 13:45] VITALS: BP 123/65; PULSE 67; TEMP 98.1
[2017-11-19] MEDS: SODIUM CHLORIDE 0.9% 1,000 ML IV SCH ×2 (15:47→15:49)
== END 2017-11-19 15:30 | disposition home or self-care (01) | DRG 455 ==
LOC: 2ORMAIN 10:48 → 5MS5E 17:21
PROVIDERS: ADMIT Orthopaedic Surgery Orthopaedic Surgery of the Spine; ATTEND Orthopaedic Surgery Orthopaedic Surgery of the Spine
PROC: 0SG0071 Fusion of Lumbar Vertebral Joint with Autologous Tissue Substitute, Posterior Approach, Posterior Column, Open Approach (ICD-10-PCS; 2017-11-16)
PROC: 0SG30AJ Fusion of Lumbosacral Joint with Interbody Fusion Device, Posterior Approach, Anterior Column, Open Approach (ICD-10-PCS; 2017-11-16)
PROC: 0SG0071 Fusion of Lumbar Vertebral Joint with Autologous Tissue Substitute, Posterior Approach, Posterior Column, Open Approach (ICD-10-PCS; 2017-11-16)
PROC: 0ST20ZZ Resection of Lumbar Vertebral Disc, Open Approach (ICD-10-PCS; 2017-11-16)
PROC: 0ST40ZZ Resection of Lumbosacral Disc, Open Approach (ICD-10-PCS; 2017-11-16)
PROC: 07DS3ZZ Extraction of Vertebral Bone Marrow, Percutaneous Approach (ICD-10-PCS; 2017-11-16)
PROC: 4A11X4G Monitoring of Peripheral Nervous Electrical Activity, Intraoperative, External Approach (ICD-10-PCS; 2017-11-16)
PROC: 30233N0 Transfusion of Autologous Red Blood Cells into Peripheral Vein, Percutaneous Approach (ICD-10-PCS; 2017-11-16)
PROC: 0SG00AJ Fusion of Lumbar Vertebral Joint with Interbody Fusion Device, Posterior Approach, Anterior Column, Open Approach (ICD-10-PCS; principal; 2017-11-16 13:00)
DX: M51.16 Intervertebral disc disorders with radiculopathy, lumbar region (principal); E87.5 Hyperkalemia; M51.17 Intervertebral disc disorders with radiculopathy, lumbosacral region; M43.16 Spondylolisthesis, lumbar region; M43.17 Spondylolisthesis, lumbosacral region; M48.062 Spinal stenosis, lumbar region with neurogenic claudication; M48.07 Spinal stenosis, lumbosacral region; M47.9 Spondylosis, unspecified; E78.5 Hyperlipidemia, unspecified; I10 Essential (primary) hypertension; R51 Headache; M54.2 Cervicalgia; D72.829 Elevated white blood cell count, unspecified; I25.10 Atherosclerotic heart disease of native coronary artery without angina pectoris; K21.9 Gastro-esophageal reflux disease without esophagitis; Z79.82 Long term (current) use of aspirin; Z79.899 Other long term (current) drug therapy; Z90.49 Acquired absence of other specified parts of digestive tract; Z98.42 Cataract extraction status, left eye; Z98.41 Cataract extraction status, right eye; Z87.891 Personal history of nicotine dependence; Z86.010 Personal history of colon polyps; Z98.1 Arthrodesis status; Z86.79 Personal history of other diseases of the circulatory system; Z80.52 Family history of malignant neoplasm of bladder
CPT/HCPCS: 72100; 80048; 80053; 81001; 84132; 85025; 86850; 86891; 86900; 86901; 87040; 87086

== ENCOUNTER 2018-01-01 16:51 | Inpatient (IN) | payer MEDICARE, OTHER ==
[2018-01-01] MEDS ORDERED: SODIUM CHLORIDE 0.9% 1,000 ML IV STA (16:57)
--- NOTE | 2018-01-01 17:03 | ED ---
Syncope HPI - General Stated Complaint: syncope Time Seen by Provider: 01/01/18 16:51 Source: patient, EMS, RN notes reviewed Mode of arrival: EMS - History of Present Illness Initial Comments: This is a 72-year-old male who was brought in by EMS for evaluation of a syncopal episode. Patient states he was shopping at a local store when he started feeling lightheaded dizzy Diaphoretic and Clammy he did sit down on a bench but then passed out for about 20 seconds. He did strike the left side of his head when he fell he woke up suddenly on the floor looking up he states. He denies any head neck or back pain though he did have recent cage placement L4 5. He states he did take [place] around 2:30 this afternoon he did eat breakfast but no lunch. He did not have any palpitations chest pain or other symptoms. Fire rescue arrived they noted that upon upright positioning his heart rate went from 80-210 also his blood pressure went from 110 systolic to 86 systolic. After IV fluids his vitals did seem to normalize per paramedics. No other complaints this time no other modifying factors. MD Complaint: loss of consciousness - Related Data Home Medications Medication Instructions Recorded Confirmed Losartan Potassium 100 mg PO QAM 12/01/14 01/01/18 Omeprazole [PriLOSEC] 20 mg PO DAILY 12/01/14 01/01/18 amLODIPine [Norvasc] 5 mg PO QAM 12/01/14 01/01/18 Atorvastatin [Lipitor] 40 mg PO DAILY 11/04/17 01/01/18 Metoprolol Succinate [Toprol XL] 50 mg PO DAILY 11/04/17 01/01/18 HYDROcodone/APAP 5-325MG [[place] 1 tab PO Q6HR PRN 01/01/18 01/01/18 5-325] Previous Rx's Medication Instructions Recorded Gabapentin [Neurontin] 600 mg PO TID #90 tab 11/19/17 Allergies Allergy/AdvReac Type Severity Reaction Status Date / Time hydrocodone bitartrate AdvReac RACING Verified 01/01/18 17:14 [From Vicodin] HEART Review of Systems ROS Statement: Those systems with pertinent positive or pertinent negative responses have been documented in the HPI. ROS Other: All systems not noted in ROS Statement are negative. Past Medical History Past Medical History: Coronary Artery Disease (CAD), GERD/Reflux, Hyperlipidemia , Hypertension, Musculoskeletal Disorder Additional Past Medical History / Comment(s): HX OF POLYP colon. LUMBAR PAIN. History of Any Multi-Drug Resistant Organisms: None Reported Past Surgical History: Appendectomy, Orthopedic Surgery Additional Past Surgical History / Comment(s): CHRIS ROTATOR CUFF, CHRIS CATARACT SX , LT CAROTID ENDARTECTOMY. COLONOSCOPY. EPIDURALS, LAST 08/2017. Lumbar fusion L4-S1 post transforaminal 11/16/17 Past Anesthesia/Blood Transfusion Reactions: Previous Problems w/ Anesthesia Additional Past Anesthesia/Blood Transfusion Reaction / Comment(s): B/P DROPPED POST OP Past Psychological History: No Psychological Hx Reported Additional Psychological History / Comment(s): and lives in the family home with his . Retired owner operator tanker truck driver. Was in the [employer] and was stationed in [place] without specific illnesses, no known agent orange exposure. No current tobacco smoker or alcohol user. No international travel since his days. No animals in the home Smoking Status: Former smoker Past Alcohol Use History: Occasional Additional Past Alcohol Use History / Comment(s): SMOKED 25 YEARS, 2-3 PPD, QUIT 1992 Past Drug Use History: None Reported - Past Family History Sister(s) Family Medical History: Cancer Additional Family Medical History / Comment(s): BLADDER General Exam - General Exam Comments Initial Comments: This is a well-developed well-nourished awake alert oriented 3 male he did have a cervical collar in place which I did take off after clearing his spine clinically. General appearance: alert, in no apparent distress Head exam: Present: normocephalic, normal inspection, other (Small area of contusion of the left parietal scalp no step-off or crepitation no foreign body seen.) Eye exam: Present: normal appearance, PERRL, EOMI. Absent: scleral icterus, conjunctival injection, periorbital swelling ENT exam: Present: normal exam, mucous membranes moist Neck exam: Present: normal inspection. Absent: tenderness, meningismus, lymphadenopathy Respiratory exam: Present: normal lung sounds bilaterally. Absent: respiratory distress, wheezes, rales, rhonchi, stridor Cardiovascular Exam: Present: regular rate, normal rhythm, normal heart sounds. Absent: systolic murmur, diastolic murmur, rubs, gallop, clicks GI/Abdominal exam: Present: soft, normal bowel sounds. Absent: distended, tenderness, guarding, rebound, rigid Extremities exam: Present: normal inspection, full ROM, normal capillary refill. Absent: tenderness, pedal edema, joint swelling, calf tenderness Back exam: Present: normal inspection Neurological exam: Present: alert, oriented X3, CN II-XII intact Psychiatric exam: Present: normal affect, normal mood Skin exam: Present: warm, dry, intact, normal color. Absent: rash Course Vital Signs 01/01/18 01/01/18 01/01/18 17:00 17:16 17:30 Temperature 97.9 F Pulse Rate 68 60 69 Respiratory 17 18 18 Rate Blood Pressure 120/86 120/86 121/68 O2 Sat by Pulse 98 97 Oximetry 01/01/18 18:30 Temperature Pulse Rate 62 Respiratory 18 Rate Blood Pressure 134/83 O2 Sat by Pulse 100 Oximetry - Reevaluation(s) Reevaluation #1: 01/01/18 20:19 I did reevaluate patient several occasions after initial encounter no acute changes are no other symptoms. EKG Findings - EKG Results: EKG: interpreted by TREV, sinus rhythm (Bradycardia with a first-degree AV block rate was 56. Interval 234 QRS duration 86 QT since QTC 474/[address]-T wave changes) Medical Decision Making - Medical Decision Making Patient's CAT scan was negative for acute evidence of aneurysm or embolism. The d-dimer was elevated a did discuss the findings with patient has patient will be admitted for evaluation of syncope. Additionally the patient does have a history of a left carotid endarterectomy several years ago he did have a carotid Doppler done recently which apparently was within normal limits at his doctor's office. - Lab Data Result diagrams: 01/01/18 16:58 01/01/18 16:58 Lab Results 01/01/18 01/01/18 01/01/18 Range/Units 16:58 16:58 16:58 WBC 6.3 (3.8-10.6) k/uL RBC 4.08 L (4.30-5.90) m/uL Hgb 12.5 L (13.0-17.5) gm/dL Hct 38.8 L (39.0-53.0) % MCV 95.2 (80.0-100.0) fL MCH 30.5 (25.0-35.0) pg MCHC 32.1 (31.0-37.0) g/dL RDW 14.2 (11.5-15.5) % Plt Count 238 (150-450) k/uL Neutrophils % (Manual) 54 % Lymphocytes % (Manual) 36 % Monocytes % (Manual) 9 % Eosinophils % (Manual) 2 % Myelocytes % 1 % Neutrophils # (Manual) 3.40 (1.3-7.7) k/uL Lymphocytes # (Manual) 2.27 (1.0-4.8) k/uL Monocytes # (Manual) 0.57 (0-1.0) k/uL Eosinophils # (Manual) 0.13 (0-0.7) k/uL Myelocytes # (Manual) 0.06 H (0) k/uL Nucleated RBCs 0 (0-0) /100 WBC Manual Slide Review Performed Reactive Lymphocytes Present PT (9.0-12.0) sec INR (<1.2) APTT (22.0-30.0) sec D-Dimer (<0.60) mg/L FEU Sodium 139 (137-145) mmol/L Potassium 4.3 (3.5-5.1) mmol/L Chloride 106 (98-107) mmol/L Carbon Dioxide 21 L (22-30) mmol/L Anion Gap 12 mmol/L BUN 14 (9-20) mg/dL Creatinine 1.09 (0.66-1.25) mg/dL Est GFR (CKD-EPI)AfAm 78 (>60 ml/min/1.73 sqM) Est GFR (CKD-EPI)NonAf 68 (>60 ml/min/1.73 sqM) Glucose 138 H (74-99) mg/dL Calcium 9.5 (8.4-10.2) mg/dL Magnesium 1.9 (1.6-2.3) mg/dL Total Bilirubin 0.7 (0.2-1.3) mg/dL AST 22 (17-59) U/L ALT 31 (21-72) U/L Alkaline Phosphatase 84 (38-126) U/L Total Creatine Kinase 47 L (55-170) U/L CK-MB (CK-2) 0.9 (0.0-2.4) ng/mL CK-MB (CK-2) Rel Index 1.9 Troponin I <0.012 (0.000-0.034) ng/mL Total Protein 6.5 (6.3-8.2) g/dL Albumin 3.9 (3.5-5.0) g/dL Urine Color Urine Appearance (Clear) Urine pH (5.0-8.0) Ur Specific [place] (1.001-1.035) Urine Protein (Negative) Urine Glucose (UA) (Negative) Urine Ketones (Negative) Urine Blood (Negative) Urine Nitrite (Negative) Urine Bilirubin (Negative) Urine Urobilinogen (<2.0) mg/dL Ur Leukocyte Esterase (Negative) 01/01/18 01/01/18 Range/Units 16:58 20:05 WBC (3.8-10.6) k/uL RBC (4.30-5.90) m/uL Hgb (13.0-17.5) gm/dL Hct (39.0-53.0) % MCV (80.0-100.0) fL MCH (25.0-35.0) pg MCHC (31.0-37.0) g/dL RDW (11.5-15.5) % Plt Count (150-450) k/uL Neutrophils % (Manual) % Lymphocytes % (Manual) % Monocytes % (Manual) % Eosinophils % (Manual) % Myelocytes % % Neutrophils # (Manual) (1.3-7.7) k/uL Lymphocytes # (Manual) (1.0-4.8) k/uL Monocytes # (Manual) (0-1.0) k/uL Eosinophils # (Manual) (0-0.7) k/uL Myelocytes # (Manual) (0) k/uL Nucleated RBCs (0-0) /100 WBC Manual Slide Review Reactive Lymphocytes PT 10.9 (9.0-12.0) sec INR 1.1 (<1.2) APTT 24.5 (22.0-30.0) sec D-Dimer 1.56 H (<0.60) mg/L FEU Sodium (137-145) mmol/L Potassium (3.5-5.1) mmol/L Chloride (98-107) mmol/L Carbon Dioxide (22-30) mmol/L Anion Gap mmol/L BUN (9-20) mg/dL Creatinine (0.66-1.25) mg/dL Est GFR (CKD-EPI)AfAm (>60 ml/min/1.73 sqM) Est GFR (CKD-EPI)NonAf (>60 ml/min/1.73 sqM) Glucose (74-99) mg/dL Calcium (8.4-10.2) mg/dL Magnesium (1.6-2.3) mg/dL Total Bilirubin (0.2-1.3) mg/dL AST (17-59) U/L ALT (21-72) U/L Alkaline Phosphatase (38-126) U/L Total Creatine Kinase (55-170) U/L CK-MB (CK-2) (0.0-2.4) ng/mL CK-MB (CK-2) Rel Index Troponin I (0.000-0.034) ng/mL Total Protein (6.3-8.2) g/dL Albumin (3.5-5.0) g/dL Urine Color Yellow Urine Appearance Clear (Clear) Urine pH 6.0 (5.0-8.0) Ur Specific [place] 1.030 (1.001-1.035) Urine Protein Trace H (Negative) Urine Glucose (UA) Negative (Negative) Urine Ketones Negative (Negative) Urine Blood Negative (Negative) Urine Nitrite Negative (Negative) Urine Bilirubin Negative (Negative) Urine Urobilinogen <2.0 (<2.0) mg/dL Ur Leukocyte Esterase Negative (Negative) - Radiology Data Radiology results: report reviewed (I did review the imaging and report no acute findings no evidence of any pulmonary wasn't.), image reviewed Disposition Clinical Impression: Syncopal episodes, History of tachycardia Disposition: ADMITTED IP TO THIS HOSP Condition: Stable Referrals: Loida Dong DO [Primary Care Provider] - 1-2 days
--- NOTE | 2018-01-01 17:42 | CT ---
EXAMINATION TYPE: CT brain wo con DATE OF EXAM: 01/01/2018 COMPARISON: None HISTORY: syncope CT DLP: 1146.4 mGycm Automated exposure control for dose reduction was used. FINDINGS: There is some cerebral cortical atrophy. There is no mass effect nor midline shift. There is no sign of intracranial hemorrhage. There is patchy hypodensity in the periventricular white matter. Calvariu m is intact. IMPRESSION: CEREBRAL ATROPHY AND CHRONIC SMALL VESSEL ISCHEMIA. NO ACUTE INTRACRANIAL ABNORMALITY.
[2018-01-01 17:44] LABS: Creatine Kinase 47 U/L (55-170)
--- NOTE | 2018-01-01 17:44 | XR ---
EXAMINATION TYPE: XR chest 2V DATE OF EXAM: 01/01/2018 COMPARISON: 11/03/2017 HISTORY: Syncope TECHNIQUE: Frontal and lateral views of the chest are obtained. FINDINGS: There is no heart failure nor confluent pneumonic infiltrate. There are chest leads. Costo phrenic angles are clear. Bony thorax is intact. There is no sign of pleural effusion. There is minim al pleural thickening at the lung apices. IMPRESSION: Apical pleural scarring. No active cardiopulmonary disease. No change.
[2018-01-01 17:46] LABS: Albumin 3.9 g/dL (3.5-5.0); Calcium 9.5 mg/dL (8.4-10.2); Magnesium 1.9 mg/dL (1.6-2.3); Potassium 4.3 mmol/L (3.5-5.1); Total Bilirubin 0.7 mg/dL (0.2-1.3); Total Protein 6.5 g/dL (6.3-8.2)
[2018-01-01 17:51] LABS: INR 1.1 (<1.2); Partial Thromboplastin Time 24.5 sec (22.0-30.0); Prothrombin Time 10.9 sec (9.0-12.0)
[2018-01-01 17:57] LABS: HCT 38.8 % (39.0-53.0); HGB 12.5 gm/dL (13.0-17.5); MCH 30.5 pg (25.0-35.0); MCHC 32.1 g/dL (31.0-37.0); MCV 95.2 fL (80.0-100.0); Mean Platelet Volume 7.7; Platelet Count 238 k/uL (150-450); RBC 4.08 m/uL (4.30-5.90); RDW 14.2 % (11.5-15.5); WBC 6.3 k/uL (3.8-10.6)
[2018-01-01 17:58] LABS: Creatine Kinase MB 0.9 ng/mL (0.0-2.4); Troponin I <0.012 ng/mL (0.000-0.034)
[2018-01-01 18:03] LABS: D-Dimer 1.56 mg/L FEU (<0.60)
[2018-01-01 19:04] LABS: Eosinophils # (M) 0.13 k/uL (0-0.7); Lymphocytes # (M) 2.27 k/uL (1.0-4.8); Monocytes # (M) 0.57 k/uL (0-1.0); Myelocytes # (M) 0.06 k/uL (0); Myelocytes % 1 %; Neutrophils % (M) 54 %; Nucleated Red Blood Cells 0 /100 WBC (0-0); Total Cells Counted 200
[2018-01-01 19:07] LABS: Reactive Lymphocytes Present
--- NOTE | 2018-01-01 19:23 | CT ---
EXAMINATION TYPE: CT angio chest DATE OF EXAM: 01/01/2018 6:59 PM COMPARISON: None HISTORY: elevated d-dimer CT DLP: 526.4 mGycm Automated exposure control for dose reduction was used. CONTRAST: CTA scan of the thorax is performed with IV Contrast, patient injected with 84 mL of Isovue 370, pulm onary embolism protocol. There are 3-D post processed images.. FINDINGS: There is coarse interstitial infiltrate at the lung bases. There is pleural and pulmonary scarring at the lung apices. This measures up to 2 cm in thickness. Thoracic aorta is atheromatous. There is no evidence of aneurysm or dissection. I see no filling defects in the pulmonary arteries. There is no m ediastinal adenopathy. There are no hilar masses. There is no pericardial effusion. There is no pleur al effusion. There is hiatal hernia. There is spurring in the thoracic spine. IMPRESSION: NO EVIDENCE OF PULMONARY EMBOLISM. PLEURAL AND PULMONARY SCARRING. NO DEFINITE ACUTE LUNG DISEASE.
[2018-01-01 20:13] LABS: Appearance,Urine Clear (Clear); Bilirubin,Urine Negative (Negative); Blood,Urine Negative (Negative); Color,Urine Yellow; Glucose,Urine (UA) Negative (Negative); Ketones,Urine Negative (Negative); Leukocyte Esterase,Urine Negative (Negative); Nitrite,Urine Negative (Negative); Protein,Urine Trace (Negative); Urobilinogen,Urine <2.0 mg/dL (<2.0)
[2018-01-01] MEDS ORDERED: NALOXONE 0.4 MG/ML 1 ML VIAL IV PRN (20:21)
[2018-01-01] MEDS ORDERED: HYDROcodone/APAP 5-325MG 1 EACH TAB PO PRN (20:26)
[2018-01-01] MEDS: SODIUM CHLORIDE 0.9% 1,000 ML IV SCH (21:07)
[2018-01-01 22:16] VITALS: BMI 30.1
[2018-01-01] MEDS: GABAPENTIN 300 MG CAP PO SCH (23:14)
[2018-01-02] MEDS ORDERED: amLODIPine 5 MG TAB PO SCH (09:00)
[2018-01-02] MEDS: GABAPENTIN 300 MG CAP PO SCH ×3 (09:19→21:15)
[2018-01-02] MEDS: METOPROLOL SUCCINATE (ER) 50 MG TAB.ER.24H PO SCH (09:19)
[2018-01-02] MEDS: LOSARTAN 50 MG TAB PO SCH (09:19)
[2018-01-02] MEDS: PANTOPRAZOLE 40 MG TABLET PO SCH (09:20)
[2018-01-02] MEDS: ATORVASTATIN 40 MG TAB PO SCH (09:20)
--- NOTE | 2018-01-02 10:14 | CONS ---
CONSULTATION Mr. Braden is a 72-year-old male known history of hypertension, hyperlipidemia, who presented with symptoms of syncope. The patient has underwent back surgery by Dr. Pereira about 6 weeks ago and yesterday while walking in [place] started to feel dizzy and warm. He decided to sit down on a chair and shortly after he sat down, he passed out and fell to the ground. He came to very briefly, after did not have any chest discomfort. Did not have any tonic clonic seizure activity nor loss of bladder control. He has he has not been as active physically after his surgery and he was starting to walk. He did not have any palpitation. No chest pain. No change in his breathing. He has no prior cardiac history. He has underwent a myocardial perfusion imaging a few years ago that was unremarkable. He has no PND, orthopnea, or peripheral edema. He has no prior syncope or history of documented arrhythmia. Apparently when he was on the ground and they sat him up, his heart rate went up and then restabilize when he lay down again. He has had breakfast but not lunch and took his blood pressure medication and the event occurred around 3 o'clock in the afternoon. His coronary risk factors positive for hypertension, hyperlipidemia, he is a nonsmoker, nondiabetic. His medication include at home include amlodipine 5 mg daily, omeprazole 20 mg daily, metoprolol succinate 50 mg daily, losartan 100 mg daily, Neurontin 600 mg 3 times a day, Lipitor 40 mg daily, and [place]. REVIEW OF SYSTEMS: RESPIRATORY system: He has no history of documented asthma, emphysema or bronchitis. GI system: No recent GI bleeding. No peptic ulcer disease. system: No dysuria or hematuria. Nervous system: No stroke or seizure. PHYSICAL EXAMINATION: He is a 72-year-old male, alert, oriented, in no apparent distress. Blood pressure 133/80 with a heart in the 80s. HEAD: Normocephalic. Eyes sclerae anicteric. Neck good upstroke, no bruit. No jugular venous distention. LUNGS: Clear to auscultation. HEART: Regular rate and rhythm S1, S2. No S3. No S4. No murmur or rub. ABDOMEN: Soft, nontender. Positive bowel sounds. No megaly. EXTREMITIES: No edema. Intact distal pulses. LAB DATA: Lab data revealed troponin less than 0.012, BUN and creatinine 14 1.09. D-dimer 1.56. Hemoglobin of 12.5. CT scan of the chest revealed no evidence of pulmonary embolism. EKG reveals sinus mechanism. First-degree AV block, otherwise no acute changes. Chest x-ray shows no acute infiltrate with apical scarring. IMPRESSION: 1. Syncopal episode, most likely orthostatic hypotension. The patient took his blood pressure medication and did not eat during the day and was ambulating more than he usually does recently because of his surgery. 2. History of hypertension. 3. Hyperlipidemia. 4. History of back surgery. RECOMMENDATION: I have recommended to stop the amlodipine, increase his physical activity. We will obtain echocardiogram with Doppler. We will check his orthostatic changes. If he remains stable, I would expect he should be able to be discharged home soon and followed as an outpatient. Thank you for this consult. We will follow with you. BATOOL / ADDISONN: [id number] /
--- NOTE | 2018-01-02 13:06 | P.HPIM ---
History of Present Illness H&P Date: 01/02/18 Chief Complaint: Syncope with collapse Da Braden, is a 72-year-old male patient of Dr. Loida Dong who presented to [facility] emergency room via EMS after having an episode of syncope and collapse. Patient states that he was out walking with his when he felt dizzy he was able to sit at the table and put his head down however patient lost consciousness and fell down to the floor, the back of his head hit the floor patient regained consciousness within 30 seconds EMS were called and patient was evaluated at the scene his heart rate was normal however when he sat up his heart rate went up to 200 he was told to lay back down and was brought in to [facility] emergency room. Patient was evaluated in the emergency room computed tomography scan of the brain revealed evidence of cerebral atrophy and chronic small vessel ischemia without any intracranial bleeding, EKG was done and revealed sinus bradycardia with first-degree AV block and T-wave inversion in inferior leads, troponin level was negative, CT angiogram of the chest was negative. Patient was admitted to observation unit cardiology consultation was requested. Patient states that 6 weeks ago he had back surgery since then he has been on a diet and has lost about 20 pounds his blood pressure has been on the low side recently. Patient has known history of hypertension and is maintained on losartan, metoprolol, and amlodipine. At this time amlodipine is on hold patient is on telemetry monitoring, echocardiogram was ordered. Patient stated that he recently had carotid Doppler at Dr. Dong's office, and that was within normal limits will try to obtain results. Past Medical History Past Medical History: Coronary Artery Disease (CAD), GERD/Reflux, Hyperlipidemia , Hypertension, Musculoskeletal Disorder Additional Past Medical History / Comment(s): LUMBAR PAIN. History of Any Multi-Drug Resistant Organisms: None Reported Past Surgical History: Appendectomy, Back Surgery, Orthopedic Surgery Additional Past Surgical History / Comment(s): CHRIS ROTATOR CUFF, CHRIS CATARACT SX , LT CAROTID ENDARTECTOMY. COLONOSCOPY. EPIDURALS, LAST 08/2017. Lumbar fusion L4-S1 post transforaminal 11/16/17 Past Anesthesia/Blood Transfusion Reactions: Previous Problems w/ Anesthesia Additional Past Anesthesia/Blood Transfusion Reaction / Comment(s): B/P DROPPED POST OP Smoking Status: Former smoker - Past Family History Sister(s) Family Medical History: Cancer Additional Family Medical History / Comment(s): BLADDER Medications and Allergies Home Medications Medication Instructions Recorded Confirmed Type Losartan Potassium 100 mg PO QAM 12/01/14 01/01/18 History Omeprazole [PriLOSEC] 20 mg PO DAILY 12/01/14 01/01/18 History amLODIPine [Norvasc] 5 mg PO QAM 12/01/14 01/01/18 History Atorvastatin [Lipitor] 40 mg PO DAILY 11/04/17 01/01/18 History Metoprolol Succinate [Toprol XL] 50 mg PO DAILY 11/04/17 01/01/18 History Gabapentin [Neurontin] 600 mg PO TID #90 tab 11/19/17 01/01/18 Rx HYDROcodone/APAP 5-325MG [[place] 1 tab PO Q6HR PRN 01/01/18 01/01/18 History 5-325] Multivitamin [Men's Multi-Vitamin] 1 tab PO DAILY 01/01/18 01/01/18 History Allergies Allergy/AdvReac Type Severity Reaction Status Date / Time No Known Allergies Allergy Verified 01/01/18 22:00 Physical Exam Vitals: Vital Signs Temp Pulse Pulse Resp BP BP Pulse Ox 01/02/18 12:00 98.5 F 71 18 121/70 96 01/02/18 11:55 81 18 01/02/18 08:00 98.8 F 81 18 133/81 97 01/02/18 03:46 18 01/02/18 03:00 98.3 F 78 18 128/71 96 01/02/18 00:00 18 01/01/18 22:27 18 01/01/18 22:04 97.5 F L 63 18 132/81 99 01/01/18 21:00 62 11 L 130/83 98 01/01/18 20:30 61 10 L 99 01/01/18 20:00 14 145/83 99 01/01/18 19:30 57 L 15 144/76 100 01/01/18 19:00 132/83 100 01/01/18 18:30 62 18 134/83 100 01/01/18 17:30 69 18 121/68 01/01/18 17:16 97.9 F 60 18 120/86 97 01/01/18 17:00 68 17 120/86 98 Intake and Output 01/01/18 01/02/18 01/02/18 22:59 06:59 14:59 Other: Voiding Method Toilet # Voids 1 1 Weight 106.4 kg In general patient is alert and oriented 3 in no apparent distress HEENT head normocephalic and atraumatic Neck is supple no JVD no goiter no lymphadenopathy Chest exam reveals a few scattered crackles no wheezing Cardiac exam reveals regular heart sounds S1 and S2 no gallops no murmurs Abdomen is soft nontender no organomegaly with normal bowel sounds Extremity exam reveals no edema with normal peripheral pulses no cyanosis or clubbing Neurological examination reveals no gross focal deficit Results CBC & Chem 7: 01/01/18 16:58 01/01/18 16:58 Labs: Abnormal Lab Results - Last 24 Hours (Table) 01/01/18 01/01/18 01/01/18 Range/Units 16:58 16:58 16:58 RBC 4.08 L (4.30-5.90) m/uL Hgb 12.5 L (13.0-17.5) gm/dL Hct 38.8 L (39.0-53.0) % Myelocytes # (Manual) 0.06 H (0) k/uL D-Dimer (<0.60) mg/L FEU Carbon Dioxide 21 L (22-30) mmol/L Glucose 138 H (74-99) mg/dL Total Creatine Kinase 47 L (55-170) U/L Urine Protein (Negative) 01/01/18 01/01/18 Range/Units 16:58 20:05 RBC (4.30-5.90) m/uL Hgb (13.0-17.5) gm/dL Hct (39.0-53.0) % Myelocytes # (Manual) (0) k/uL D-Dimer 1.56 H (<0.60) mg/L FEU Carbon Dioxide (22-30) mmol/L Glucose (74-99) mg/dL Total Creatine Kinase (55-170) U/L Urine Protein Trace H (Negative) Thrombosis Risk Factor Assmnt - Choose All That Apply Each Risk Factor Represents 2 Points: Age 61-74 years Thrombosis Risk Factor Assessment Total Risk Factor Score: 2 Thrombosis Risk Factor Assessment Level: Low Risk Assessment and Plan Plan: #1 syncopal episode, may be related to hypotension, patient blood pressure has been on the low side recently after he lost 20 pounds in the last 6 weeks, at this time amlodipine has been discontinued, continue losartan and Toprol and monitor blood pressure closely, echocardiogram was done and results are still pending #2 episode of tachycardia in the immediate aftermath of the syncope at this time patient is on telemetry monitoring will assess for any evidence of cardiac arrhythmia #3 underlying history of hypertension #4 underlying history of chronic back pain patient had recent lumbar spine surgery #5 remote history of smoking patient quit 24 years ago At this time continue with current management will monitor for 24 hours will recheck labs and echocardiogram results in a.m. Will recheck telemetry monitoring strips if a zhang does not have any abnormal results he will be discharged home tomorrow morning
--- NOTE | 2018-01-02 13:33 | ECHOF ---
Referral Reason:Syncope MEASUREMENTS -------- HEIGHT: 182.9 cm WEIGHT: 106.1 kg BP: 133/81 RVIDd: 2.8 cm (< 3.3) IVSd: 1.4 cm (0.6 - 1.1) LVIDd: 4.5 cm (3.9 - 5.3) LVPWd: 1.1 cm (0.6 - 1.1) IVSs: 1.6 cm LVIDs: 3.8 cm LVPWs: 1.6 cm Ao Diam: 3.1 cm (2.0 - 3.7) AV Cusp: 1.9 cm (1.5 - 2.6) LA Diam: 3.4 cm (2.7 - 3.8) MV EXCURSION: 28.026 mm (> 18.000) MV EF SLOPE: 97 mm/s (70 - 150) EPSS: 1.4 cm MV E Oliver: 0.61 m/s MV DecT: 240 ms MV A Oliver: 0.75 m/s MV E/A Ratio: 0.81 RAP: 5.00 mmHg RVSP: 11.24 mmHg FINDINGS -------- Sinus rhythm. This was a technically adequate study. The left ventricular size is normal. There is moderate concentric left ventricular hypertrophy. O verall left ventricular systolic function is normal with, an EF between 55 - 60 %. The right ventricle is normal in size. The left atrial size is normal. The right atrial size is normal. There is mild aortic valve sclerosis. There is no evidence of aortic regurgitation. Mild mitral annular calcification present. Mild mitral regurgitation is present. Trace tricuspid regurgitation present. There is no evidence of pulmonary hypertension. The right ventricular systolic pressure, as measured by Doppler, is 11.24mmHg. There is no pulmonic regurgitation present. The aortic root size is normal. Echo free space represents a pericardial fat pad. CONCLUSIONS -------- 1. Sinus rhythm. 2. This was a technically adequate study. 3. The left ventricular size is normal. 4. There is moderate concentric left ventricular hypertrophy. 5. Overall left ventricular systolic function is normal with, an EF between 55 - 60 %. 6. The left atrial size is normal. 7. There is mild aortic valve sclerosis. 8. Mild mitral annular calcification present. 9. Mild mitral regurgitation is present. 10. Trace tricuspid regurgitation present. 11. There is no evidence of pulmonary hypertension. 12. There is no pulmonic regurgitation present. 13. The aortic root size is normal. 14. Echo free space represents a pericardial fat pad. CURRICULUM DIRECTOR: Lidia Lew RDCS
[2018-01-02] MEDS: SODIUM CHLORIDE 0.9% 1,000 ML IV SCH (16:22)
[2018-01-02 20:02] VITALS: RESP 18
[2018-01-03] MEDS: SODIUM CHLORIDE 0.9% 1,000 ML IV SCH (00:21)
[2018-01-03 07:52] LABS: HCT 38.8 % (39.0-53.0); HGB 12.6 gm/dL (13.0-17.5); MCH 31.4 pg (25.0-35.0); MCHC 32.5 g/dL (31.0-37.0); MCV 96.4 fL (80.0-100.0); Mean Platelet Volume 7.9; Platelet Count 233 k/uL (150-450); RBC 4.03 m/uL (4.30-5.90); RDW 14.1 % (11.5-15.5); WBC 5.5 k/uL (3.8-10.6)
[2018-01-03 08:06] LABS: ALT 27 U/L (21-72); AST 24 U/L (17-59); Albumin 3.9 g/dL (3.5-5.0); Alkaline Phosphatase 82 U/L (38-126); Anion Gap 8 mmol/L; Blood Urea Nitrogen 11 mg/dL (9-20); Calcium 9.7 mg/dL (8.4-10.2); Carbon Dioxide 27 mmol/L (22-30); Chloride 107 mmol/L (98-107); Glucose 87 mg/dL (74-99); Potassium 4.9 mmol/L (3.5-5.1); Sodium 142 mmol/L (137-145); Total Bilirubin 0.8 mg/dL (0.2-1.3); Total Protein 6.7 g/dL (6.3-8.2)
[2018-01-03] MEDS: METOPROLOL SUCCINATE (ER) 50 MG TAB.ER.24H PO SCH (08:07)
[2018-01-03] MEDS: PANTOPRAZOLE 40 MG TABLET PO SCH (08:07)
[2018-01-03] MEDS: GABAPENTIN 300 MG CAP PO SCH (08:07)
[2018-01-03] MEDS: ATORVASTATIN 40 MG TAB PO SCH (08:08)
[2018-01-03] MEDS: LOSARTAN 50 MG TAB PO SCH (08:08)
[2018-01-03 08:10] VITALS: BP 135/77; PULSE 80; TEMP 98.5
[2018-01-03 09:15] LABS: Eosinophils # (M) 0.22 k/uL (0-0.7); Myelocytes # (M) 0.06 k/uL (0); Myelocytes % 1 %; Nucleated Red Blood Cells 0 /100 WBC (0-0)
[2018-01-03 09:17] LABS: Monocytes # (M) 1.27 k/uL (0-1.0); Neutrophils # (M) 1.82 k/uL (1.3-7.7); Neutrophils % (M) 33 %; Total Cells Counted 200
--- NOTE | 2018-01-03 13:08 | P.DS ---
Providers Date of admission: 01/02/18 08:17 Expected date of discharge: 01/03/18 Attending physician: Larry Stringer Consults: 01/01/18 20:22 Consult Physician Routine Consulting Provider: Raysa Avery Consult Reason/Comments: Episode of tachycardia Do you want consulting provider notified?: Yes Primary care physician: Loida Dong [facility] Course: Diagnosis on discharge: #1 syncopal episode, may be related to hypotension, patient blood pressure has been on the low side recently after he lost 20 pounds in the last 6 weeks, at this time amlodipine has been discontinued, continue losartan and Toprol and monitor blood pressure closely, echocardiogram was done and results are still pending #2 episode of tachycardia in the immediate aftermath of the syncope at this time patient is on telemetry monitoring will assess for any evidence of cardiac arrhythmia #3 underlying history of hypertension #4 underlying history of chronic back pain patient had recent lumbar spine surgery #5 remote history of smoking patient quit 24 years ago Hospital course: Da Braden, is a 72-year-old male patient of Dr. Loida Dong who presented to [facility] emergency room via EMS after having an episode of syncope and collapse. Patient states that he was out walking with his when he felt dizzy he was able to sit at the table and put his head down however patient lost consciousness and fell down to the floor, the back of his head hit the floor patient regained consciousness within 30 seconds EMS were called and patient was evaluated at the scene his heart rate was normal however when he sat up his heart rate went up to 200 he was told to lay back down and was brought in to [facility] emergency room. Patient was evaluated in the emergency room computed tomography scan of the brain revealed evidence of cerebral atrophy and chronic small vessel ischemia without any intracranial bleeding, EKG was done and revealed sinus bradycardia with first-degree AV block and T-wave inversion in inferior leads, troponin level was negative, CT angiogram of the chest was negative. Patient was admitted to observation unit cardiology consultation was requested. Patient states that 6 weeks ago he had back surgery since then he has been on a diet and has lost about 20 pounds his blood pressure has been on the low side recently. Patient has known history of hypertension and is maintained on losartan, metoprolol, and amlodipine. At this time amlodipine is on hold patient is on telemetry monitoring, echocardiogram was ordered. Patient stated that he recently had carotid Doppler at Dr. Dong's office, and that was within normal limits will try to obtain results. On 01/03/2018 patient was seen and examined, he is alert and oriented 3 he denies any episodes of dizziness lightheadedness or any episodes of syncope. Amlodipine was discontinued yesterday, close monitoring of blood pressure reveals normal blood pressure, patient was evaluated by cardiology and was cleared for discharge, patient will be discharged home today, he will follow-up with his primary care physician Dr. Loida Dong, he will discontinue taking amlodipine and continue his same medications otherwise. Patient Condition at Discharge: Stable Plan - Discharge Summary New Discharge Prescriptions: Continue Omeprazole [PriLOSEC] 20 mg PO DAILY Losartan Potassium 100 mg PO QAM Atorvastatin [Lipitor] 40 mg PO DAILY Metoprolol Succinate [Toprol XL] 50 mg PO DAILY Gabapentin [Neurontin] 600 mg PO TID #90 tab HYDROcodone/APAP 5-325MG [[place] 5-325] 1 tab PO Q6HR PRN PRN Reason: Pain Multivitamin [Men's Multi-Vitamin] 1 tab PO DAILY Discontinued amLODIPine [Norvasc] 5 mg PO QAM Discharge Medication List Losartan Potassium 100 mg PO QAM 12/01/14 [History] Omeprazole [PriLOSEC] 20 mg PO DAILY 12/01/14 [History] Atorvastatin [Lipitor] 40 mg PO DAILY 11/04/17 [History] Metoprolol Succinate [Toprol XL] 50 mg PO DAILY 11/04/17 [History] Gabapentin [Neurontin] 600 mg PO TID #90 tab 11/19/17 [Rx] HYDROcodone/APAP 5-325MG [[place] 5-325] 1 tab PO Q6HR PRN 01/01/18 [History] Multivitamin [Men's Multi-Vitamin] 1 tab PO DAILY 01/01/18 [History] Follow up Appointment(s)/Referral(s): Marisela Hayes MD [STAFF PHYSICIAN] - 3 Weeks Loida Dong DO [Primary Care Provider] - 1-2 days
== END 2018-01-03 14:30 | disposition home or self-care (01) | DRG 312 ==
LOC: EC 16:51 → 1SOBS 20:21 → OBSVTOIN 01-02 08:17 → 4SSUR 01-02 18:25
PROVIDERS: ADMIT Internal Medicine; ATTEND Internal Medicine
DX: I95.1 Orthostatic hypotension (principal); E78.5 Hyperlipidemia, unspecified; I25.10 Atherosclerotic heart disease of native coronary artery without angina pectoris; K21.9 Gastro-esophageal reflux disease without esophagitis; G89.29 Other chronic pain; M54.5 Low back pain; I44.0 Atrioventricular block, first degree; R00.0 Tachycardia, unspecified; I10 Essential (primary) hypertension; Z86.010 Personal history of colon polyps; Z79.899 Other long term (current) drug therapy; Z90.49 Acquired absence of other specified parts of digestive tract; Z98.42 Cataract extraction status, left eye; Z98.41 Cataract extraction status, right eye; Z86.79 Personal history of other diseases of the circulatory system; Z98.1 Arthrodesis status; Z87.891 Personal history of nicotine dependence; Z88.5 Allergy status to narcotic agent; W19.XXXA Unspecified fall, initial encounter; Z80.52 Family history of malignant neoplasm of bladder
CPT/HCPCS: 36415; 70450; 71046; 71275; 80053; 81003; 82550; 82553; 83735; 84443; 84484; 85025; 85379; 85610; 85730; 93005; 93306; 96360; 96361; 99285

== ENCOUNTER → 2018-05-03 | Outpatient (CLI) | payer MEDICARE, OTHER ==
[2018-05-03 14:21] LABS: Blood Urea Nitrogen 12 mg/dL (9-20)
--- NOTE | 2018-05-03 17:20 | CT ---
EXAMINATION TYPE: CT abdomen pelvis w con DATE OF EXAM: 05/03/2018 COMPARISON: None HISTORY: Bladder cancer. CT DLP: 2018.2 mGycm Automated exposure control for dose reduction was used. TECHNIQUE: Helical acquisition of images from the lung bases through the pelvis have been completed. CONTRAST: Performed without Oral Contrast and with IV Contrast, patient injected with 100ml mL of Isovue 300. FINDINGS: LUNG BASES: No significant abnormality is appreciated. There are multiple pleural calcifications pres ent along the diaphragms. There is a small hiatal hernia present. There is some coronary artery calci fications AORTA: Dense atherosclerotic calcifications are present.. LIVER/GB: No significant abnormality is appreciated. PANCREAS: No significant abnormality is seen. SPLEEN: No significant abnormality is seen. ADRENALS: Minimal nodularity right adrenal gland. KIDNEYS: The ureters show normal course and caliber. Kidneys show no mass. Probable cortical cyst evonne suring 8 mm within the mid pole left kidney. REPRODUCTIVE ORGANS: No significant abnormality is seen BOWEL: No significant abnormality is seen. Some mild diverticular change present along the sigmoid c olon. FREE AIR: No Free Air visible. ASCITES: None visible. PELVIC ADENOPATHY: None visualized. RETROPERITONEAL ADENOPATHY: No Retroperitoneal Adenopathy visible. URINARY BLADDER: Punctate calcification is present in region adjacent to the ureterovesical orifice on the right. OSSEOUS STRUCTURES: There are postop changes at the lumbosacral spine status post posterior fusion L 4-5 through L5-S1 with probable foraminotomies present on the, there is some local scarring and there is artifact due to patient's metallic hardware.. IMPRESSION: PROBABLE SMALL CORTICAL CYST LEFT KIDNEY. CORRELATE FOR SPECIMENS RELATED DISEASE, FOLLOW-UP SUGGESTE D. INDETERMINATE MILD NODULARITY RIGHT ADRENAL GLAND, THERE MAY BE UNDERLYING ADENOMA, CONSIDER FOLLO W-UP. Punctate bladder calcification. Postop changes. Additional findings above.
== END | disposition home or self-care (01) ==
LOC: RADCTMAIN 13:38
PROVIDERS: ATTEND Urology
DX: K57.30 Diverticulosis of large intestine without perforation or abscess without bleeding (principal); N32.89 Other specified disorders of bladder; C67.9 Malignant neoplasm of bladder, unspecified; I70.0 Atherosclerosis of aorta; K44.9 Diaphragmatic hernia without obstruction or gangrene; Z98.890 Other specified postprocedural states
CPT/HCPCS: 82565; 84520; 74177; 36415; Q9967

== ENCOUNTER → 2021-05-01 | Outpatient (CLI) | payer MEDICARE ==
--- NOTE | 2021-05-01 18:55 | CT ---
EXAMINATION TYPE: CT urogram wo/w con DATE OF EXAM: 05/01/2021 INDICATION: 36-year-old male, bladder cancer CT DLP: 4569.7 mGy.cm Automated Exposure Control for Dose Reduction was Utilized. TECHNIQUE AND CONTRAST: CT scan of the abdomen and pelvis is performed without and with IV Contrast, as per CT urogram protoc ol. The was patient injected with 100 mL of Isovue 300. 3-D reconstruction images were performed and reviewed. COMPARISON: CT dated 05/03/2018 FINDINGS: 3 mm calcification is seen in the posterior urinary bladder wall inferior to the right ureterovesicul ar junction, stable. Otherwise no definite radiodense renal, ureteric or urinary bladder calculi. No hydroureter or hydronephrosis. 11 mm cyst is seen at the midpole of the left kidney, stable. Small le ft inferior parapelvic renal cysts. Focal cortical scarring at the lower pole of the right kidney. Unremarkable kidneys otherwise. Unrema rkable opacified ureters. Grossly unremarkable urinary bladder without definite wall thickening or fi lling defect within. Prominent prostate, please correlate with PSA level. Unremarkable vascular semin al vesicles. No definite hepatic focal lesion. Slightly thickened gallbladder wall, please correlate for chronic c holecystitis. Unremarkable spleen, pancreas and right adrenal. Stable slight focal thickening of the left adrenal. Extensive arterial atherosclerotic calcifications with infrarenal abdominal aortic ecta karla measuring up to 2.6 cm. Ectatic common iliac arteries. 7 mm nodule is seen along the medial aspec t of the gastric fundus compared to 5 mm previously which could represent a small gastric diverticulu m or a slightly enlarging lymph node, attention follow-up. Otherwise unremarkable stomach, duodenum a nd small bowel. Extensive colonic diverticulosis most evident involving the sigmoid colon. No suspicious lymphadenopa thy or sizable ascites. Cardiomegaly with coronary arterial calcifications. Persistent bilateral calc ified pleural plaques. Stable 6 mm middle lobe nodule. Degenerative changes of the lower thoracic, dereck mbar spine and hip joints. Retrolisthesis of L2 over L3 with anterolisthesis of L5 over S1. Lumbosacr al fixation from L4 down to S1. IMPRESSION: No definite urinary bladder lesion identified. Enlarged prostate, please correlate with PSA level. No obvious metastatic disease seen in the abdomen or the pelvis. Incidental findings as detailed above.
== END | disposition home or self-care (01) ==
LOC: RADCTMAIN 09:20
PROVIDERS: ATTEND Urology
DX: C67.9 Malignant neoplasm of bladder, unspecified (principal)
CPT/HCPCS: 82565; 84520; 74178; 36415; 74400; Q9967

== ENCOUNTER 2021-11-26 08:15 | Emergency (ER) | payer MEDICARE ==
[2021-11-26 08:22] VITALS: PULSE 97; RESP 18; TEMP 98
--- NOTE | 2021-11-26 09:11 | ED ---
Recheck HPI - General Chief Complaint: Recheck/Abnormal Lab/Rx Stated Complaint: Surgery complications Time Seen by Provider: 11/26/21 08:39 Source: patient Mode of arrival: ambulatory Limitations: no limitations - History of Present Illness Initial Comments: 76-year-old male who presents with complaints of blood from his penis seemed to be a lot this morning. He had no prior episodes of this he did have a procedure done on the of this month by Dr. Berumen wished patient describes as a dilation so that he could scope into the bladder evaluated. He denies any pain he has some lightheadedness and dizziness this morning however. No fevers chil ls nausea vomiting sweats no abdominal pain no other complaints voiced at this time. - Related Data Home Medications Medication Instructions Recorded Confirmed Losartan Potassium 100 mg PO QAM 12/01/14 11/26/21 Atorvastatin [Lipitor] 40 mg PO DAILY 11/04/17 11/26/21 Aspirin EC [Ecotrin Low Dose] 81 mg PO DAILY 11/26/21 11/26/21 Lutein 20 mg PO DAILY 11/26/21 11/26/21 Metoprolol Tartrate [Lopressor] 50 mg PO DAILY 11/26/21 11/26/21 Multivitamins, Thera [Multivitamin 1 tab PO DAILY 11/26/21 11/26/21 (formulary)] Tamsulosin HCl [Flomax] 0.4 mg PO DAILY 11/26/21 11/26/21 Zinc Gluconate [Zinc] 50 mg PO DAILY 11/26/21 11/26/21 allopurinoL [Zyloprim] 100 mg PO DAILY 11/26/21 11/26/21 Allergies Allergy/AdvReac Type Severity Reaction Status Date / Time No Known Allergies Allergy Verified 11/26/21 10:47 Review of Systems ROS Statement: Those systems with pertinent positive or pertinent negative responses have been documented in the HPI. ROS Other: All systems not noted in ROS Statement are negative. Past Medical History Past Medical History: Hyperlipidemia, Hypertension, Musculoskeletal Disorder, Prostate Disorder Additional Past Medical History / Comment(s): LUMBAR PAIN. History of Any Multi-Drug Resistant Organisms: None Reported Past Surgical History: Appendectomy, Back Surgery, Orthopedic Surgery Additional Past Surgical History / Comment(s): CHRIS ROTATOR CUFF, CHRIS CATARACT SX, LT CAROTID ENDARTECTOMY. COLONOSCOPY. EPIDURALS, LAST 08/2017. Lumbar fusion L4-S1 post transforaminal 11/16/17, Past Anesthesia/Blood Transfusion Reactions: Previous Problems w/ Anesthesia Additional Past Anesthesia/Blood Transfusion Reaction / Comment(s): B/P DROPPED POST OP Past Psychological History: No Psychological Hx Reported Smoking Status: Former smoker Past Alcohol Use History: Occasional Past Drug Use History: None Reported - Past Family History Sister(s) Family Medical History: Cancer Additional Family Medical History / Comment(s): BLADDER General Exam - General Exam Comments Initial Comments: This is a well-developed well-nourished awake alert oriented 4 male Limitations: no limitations General appearance: alert, in no apparent distress Head exam: Present: atraumatic, normocephalic, normal inspection Eye exam: Present: normal appearance, PERRL, EOMI. Absent: scleral icterus, co njunctival injection, periorbital swelling ENT exam: Present: normal exam, mucous membranes moist Neck exam: Present: normal inspection, full ROM, other (No stridor JVD or bruits). Absent: tenderness, meningismus, lymphadenopathy Respiratory exam: Present: normal lung sounds bilaterally. Absent: respiratory distress, wheezes, rales, rhonchi, stridor Cardiovascular Exam: Present: regular rate, normal rhythm, normal heart sounds. Absent: systolic murmur, diastolic murmur, rubs, gallop, clicks GI/Abdominal exam: Present: soft, normal bowel sounds. Absent: distended, t enderness, guarding, rebound, rigid exam: Present: circumcision, other (Examination the genital area reveals a blood clot emanating from the penile meatus no tenderness over the area. Dark blood noted in the underwear.) Extremities exam: Present: normal inspection, full ROM, normal capillary refill. Absent: tenderness, pedal edema, joint swelling, calf tenderness Back exam: Present: normal inspection Neurological exam: Present: alert, oriented X3, CN II-XII intact Psychiatric exam: Present: normal affect, normal mood Skin exam: Present: warm, dry, intact, normal color. Absent: rash Course Vital Signs 11/26/21 08:16 Temperature 98.0 F Pulse Rate 97 Respiratory 18 Rate Blood Pressure 185/109 O2 Sat by Pulse 97 Oximetry Medical Decision Making - Medical Decision Making The patient was able to pass a large amount of urine after given a urine sample. He has no pain no other symptoms this time he does have an appointment with Dr. Berumen tomorrow. I did discuss case Dr. Mendoza. Patient will be discharged and follow-up as planned tomorrow. I did recommend the patient increase his oral fluids. Additionally the patient was cautioned me still passed some clots and some blood. - Lab Data Result diagrams: 11/26/21 09:21 11/26/21 09:21 Lab Results 11/26/21 11/26/21 11/26/21 Range/Units 09:21 09:21 09:21 WBC 6.2 (3.8-10.6) k/uL RBC 4.64 (4.30-5.90) m/uL Hgb 14.6 (13.0-17.5) gm/dL Hct 43.2 (39.0-53.0) % MCV 93.0 (80.0-100.0) fL MCH 31.5 (25.0-35.0) pg MCHC 33.9 (31.0-37.0) g/dL RDW 13.2 (11.5-15.5) % Plt Count 151 (150-450) k/uL MPV 9.3 Neutrophils % (Manual) 48 % Lymphocytes % (Manual) 19 % Monocytes % (Manual) 29 % Eosinophils % (Manual) 4 % Basophils % (Manual) 1 % Neutrophils # (Manual) 2.98 (1.3-7.7) k/uL Lymphocytes # (Manual) 1.18 (1.0-4.8) k/uL Monocytes # (Manual) 1.80 H (0-1.0) k/uL Eosinophils # (Manual) 0.25 (0-0.7) k/uL Basophils # (Manual) 0.06 (0-0.2) k/uL Nucleated RBCs 0 (0-0) /100 WBC Manual Slide Review Performed RBC Morphology Normal PT 10.9 (9.0-12.0) sec INR 1.0 (<1.2) APTT 27.5 (22.0-30.0) sec Sodium 141 (137-145) mmol/L Potassium 4.3 (3.5-5.1) mmol/L Chloride 103 (98-107) mmol/L Carbon Dioxide 26 (22-30) mmol/L Anion Gap 12 mmol/L BUN 13 (9-20) mg/dL Creatinine 0.88 (0.66-1.25) mg/dL Est GFR (CKD-EPI)AfAm >90 (>60 ml/min/1.73 sqM) Est GFR (CKD-EPI)NonAf 84 (>60 ml/min/1.73 sqM) Glucose 121 H (74-99) mg/dL Calcium 9.2 (8.4-10.2) mg/dL Magnesium 2.1 (1.6-2.3) mg/dL Total Bilirubin 0.9 (0.2-1.3) mg/dL AST 30 (17-59) U/L ALT 31 (4-49) U/L Alkaline Phosphatase 93 (38-126) U/L Creatine Kinase 75 (55-170) U/L Total Protein 7.1 (6.3-8.2) g/dL Albumin 4.5 (3.5-5.0) g/dL Urine Color Urine Appearance (Clear) Urine pH (5.0-8.0) Ur Specific [place] (1.001-1.035) Urine Protein (Negative) Urine Glucose (UA) (Negative) Urine Ketones (Negative) Urine Blood (Negative) Urine Nitrite (Negative) Urine Bilirubin (Negative) Urine Urobilinogen (<2.0) mg/dL Ur Leukocyte Esterase (Negative) Urine RBC (0-5) /hpf Urine WBC (0-5) /hpf Urine Bacteria (None) /hpf 11/26/ Range/Units 10:27 WBC (3.8-10.6) k/uL RBC (4.30-5.90) m/uL Hgb (13.0-17.5) gm/dL Hct (39.0-53.0) % MCV (80.0-100.0) fL MCH (25.0-35.0) pg MCHC (31.0-37.0) g/dL RDW (11.5-15.5) % Plt Count (150-450) k/uL MPV Neutrophils % (Manual) % Lymphocytes % (Manual) % Monocytes % (Manual) % Eosinophils % (Manual) % Basophils % (Manual) % Neutrophils # (Manual) (1.3-7.7) k/uL Lymphocytes # (Manual) (1.0-4.8) k/uL Monocytes # (Manual) (0-1.0) k/uL Eosinophils # (Manual) (0-0.7) k/uL Basophils # (Manual) (0-0.2) k/uL Nucleated RBCs (0-0) /100 WBC Manual Slide Review RBC Morphology PT (9.0-12.0) sec INR (<1.2) APTT (22.0-30.0) sec Sodium (137-145) mmol/L Potassium (3.5-5.1) mmol/L Chloride (98-107) mmol/L Carbon Dioxide (22-30) mmol/L Anion Gap mmol/L BUN (9-20) mg/dL Creatinine (0.66-1.25) mg/dL Est GFR (CKD-EPI)AfAm (>60 ml/min/1.73 sqM) Est GFR (CKD-EPI)NonAf (>60 ml/min/1.73 sqM) Glucose (74-99) mg/dL Calcium (8.4-10.2) mg/dL Magnesium (1.6-2.3) mg/dL Total Bilirubin (0.2-1.3) mg/dL AST (17-59) U/L ALT (4-49) U/L Alkaline Phosphatase (38-126) U/L Creatine Kinase (55-170) U/L Total Protein (6.3-8.2) g/dL Albumin (3.5-5.0) g/dL Urine Color Light Red Urine Appearance Clear (Clear) Urine pH 6.5 (5.0-8.0) Ur Specific [place] 1.008 (1.001-1.035) Urine Protein 1+ H (Negative) Urine Glucose (UA) Negative (Negative) Urine Ketones Negative (Negative) Urine Blood Large H (Negative) Urine Nitrite Negative (Negative) Urine Bilirubin Negative (Negative) Urine Urobilinogen <2.0 (<2.0) mg/dL Ur Leukocyte Esterase Trace H (Negative) Urine RBC >182 H (0-5) /hpf Urine WBC 15 H (0-5) /hpf Urine Bacteria Rare H (None) /hpf - EKG Data -: EKG Interpreted by Al EKG shows normal: sinus rhythm EKG Comments: Sinus rhythm of 79. Interval 194 QRS duration 82 QT/QTC 369/404 evidence of old inferior changes Disposition Clinical Impression: Hematuria Disposition: HOME SELF-CARE Condition: Good Instructions (If sedation given, give patient instructions): Hematuria (ED) Is patient prescribed a controlled substance at d/c from ED?: No Referrals: Loida Dong DO [Primary Care Provider] - 1-2 days Decision Date: 11/26/21 Decision Time: 12:04
[2021-11-26 09:30] LABS: HCT 43.2 % (39.0-53.0); HGB 14.6 gm/dL (13.0-17.5); MCH 31.5 pg (25.0-35.0); MCHC 33.9 g/dL (31.0-37.0); Mean Platelet Volume 9.3; Platelet Count 151 k/uL (150-450); RBC 4.64 m/uL (4.30-5.90); RDW 13.2 % (11.5-15.5); WBC 6.2 k/uL (3.8-10.6)
[2021-11-26 09:45] LABS: ALT 31 U/L (4-49); AST 30 U/L (17-59); African American GFR (CKD) >90 (>60 ml/min/1.73 sqM); Albumin 4.5 g/dL (3.5-5.0); Alkaline Phosphatase 93 U/L (38-126); Anion Gap 12 mmol/L; Blood Urea Nitrogen 13 mg/dL (9-20); Calcium 9.2 mg/dL (8.4-10.2); Carbon Dioxide 26 mmol/L (22-30); Chloride 103 mmol/L (98-107); Creatine Kinase 75 U/L (55-170); Glucose 121 mg/dL (74-99); Magnesium 2.1 mg/dL (1.6-2.3); Non-African American GFR(CKD) 84 (>60 ml/min/1.73 sqM); Potassium 4.3 mmol/L (3.5-5.1); Sodium 141 mmol/L (137-145); Total Bilirubin 0.9 mg/dL (0.2-1.3); Total Protein 7.1 g/dL (6.3-8.2)
[2021-11-26 09:46] LABS: Partial Thromboplastin Time 27.5 sec (22.0-30.0); Prothrombin Time 10.9 sec (9.0-12.0)
--- NOTE | 2021-11-26 09:54 | XR ---
EXAMINATION TYPE: XR chest 2V DATE OF EXAM: 11/26/2021 COMPARISON: 01/01/2018 HISTORY: 76-year-old male dizziness TECHNIQUE: PA and lateral views FINDINGS: Heart upper limits of normal in size. Aorta within normal limits. Mild hyperinflation. Interstitial p rominence is unchanged. Some strandy atelectasis in the lower lungs. No poornima consolidation or pleura l effusion. IMPRESSION: COPD. Borderline heart size. Chronic changes without acute process seen.
--- NOTE | 2021-11-26 09:55 | XR ---
EXAMINATION TYPE: XR KUB DATE OF EXAM: 11/26/2021 Comparison: CT 3 Clinical History: 76-year-old male Dizziness. Bladder surgery 2 weeks ago. Catheter removed 1 week ag o. Findings: Posterior interbody lower lumbar fusion. No evidence for free intraperitoneal air. No dilated small b owel or air-fluid levels. No significant stool burden. Impression: No evidence for free air or bowel obstruction. No significant stool burden.
[2021-11-26 10:07] LABS: Basophils # (M) 0.06 k/uL (0-0.2); Eosinophils # (M) 0.25 k/uL (0-0.7); Lymphocytes # (M) 1.18 k/uL (1.0-4.8); Neutrophils # (M) 2.98 k/uL (1.3-7.7); Neutrophils % (M) 48 %; Nucleated Red Blood Cells 0 /100 WBC (0-0); Total Cells Counted 200
[2021-11-26 10:09] LABS: RBC Morphology Normal
[2021-11-26 10:55] LABS: Appearance,Urine Clear (Clear); Bacteria,Urine Rare /hpf; Bilirubin,Urine Negative (Negative); Blood,Urine Large (Negative); Color,Urine Light Red; Glucose,Urine (UA) Negative (Negative); Ketones,Urine Negative (Negative); Leukocyte Esterase,Urine Trace (Negative); Nitrite,Urine Negative (Negative); PH, Urine 6.5 (5.0-8.0); Protein,Urine 1+ (Negative); RBC,Urine >182 /hpf (0-5); Specific Gravity,Urine 1.008 (1.001-1.035); Urobilinogen,Urine <2.0 mg/dL (<2.0); WBC,Urine 15 /hpf (0-5)
[2021-11-26 12:26] VITALS: BP 164/84
== END 2021-11-26 12:35 | disposition home or self-care (01) ==
LOC: EC 08:15
DX: R31.9 Hematuria, unspecified (principal); R42 Dizziness and giddiness; E78.5 Hyperlipidemia, unspecified; I10 Essential (primary) hypertension; Z87.891 Personal history of nicotine dependence; Z79.899 Other long term (current) drug therapy
CPT/HCPCS: 36415; 71046; 74018; 80053; 81001; 82550; 83735; 85025; 85610; 85730; 87086; 93005; 99284

== ENCOUNTER 2023-03-31 00:45 | Observation (INO) | payer MEDICARE ==
[2023-03-31 01:30] LABS: Glucose,Whole Blood 146 mg/dL (70-110)
[2023-03-31] MEDS ORDERED: MORPHINE SULFATE 5 MG/ML SYRINGE IVP STA (01:37)
[2023-03-31] MEDS ORDERED: ONDANSETRON 4 MG/2 ML VIAL IVP STA (01:37)
[2023-03-31 01:39] LABS: HCT 39.9 % (39.0-53.0); MCH 32.5 pg (25.0-35.0); MCHC 35.1 g/dL (31.0-37.0); MCV 92.7 fL (80.0-100.0); Platelet Count 145 k/uL (150-450); RBC 4.31 m/uL (4.30-5.90); RDW 13.3 % (11.5-15.5); WBC 9.3 k/uL (3.8-10.6)
[2023-03-31] MEDS: MORPHINE SULFATE 4 MG/ML SYRINGE IVP PRN ×2 (01:48→08:33)
[2023-03-31 01:50] LABS: Partial Thromboplastin Time 24.1 sec (22.0-30.0); Prothrombin Time 11.3 sec (10.0-12.5)
[2023-03-31 02:01] LABS: ALT 29 U/L (4-49); African American GFR (CKD) >90 (>60 ml/min/1.73 sqM); Albumin 4.1 g/dL (3.5-5.0); Anion Gap 10 mmol/L; Blood Urea Nitrogen 19 mg/dL (9-20); Calcium 9.4 mg/dL (8.4-10.2); Carbon Dioxide 24 mmol/L (22-30); Chloride 106 mmol/L (98-107); Glucose 155 mg/dL (74-99); Non-African American GFR(CKD) 84 (>60 ml/min/1.73 sqM); Sodium 140 mmol/L (137-145); Total Bilirubin 0.6 mg/dL (0.2-1.3); Total Protein 6.8 g/dL (6.3-8.2)
[2023-03-31 02:02] LABS: AST 32 U/L (17-59); Alkaline Phosphatase 110 U/L (38-126); Magnesium 1.9 mg/dL (1.6-2.3); Potassium 3.6 mmol/L (3.5-5.1)
[2023-03-31] MEDS ORDERED: HYDROmorphone 1 MG/ML 1 ML SYRINGE IVP STA (02:30)
[2023-03-31 03:15] LABS: Lymphocytes # (M) 4.09 k/uL (1.0-4.8); Neutrophils # (M) 3.81 k/uL (1.3-7.7); Neutrophils % (M) 41 %; Nucleated Red Blood Cells 0 /100 WBC (0-0); RBC Morphology Normal; Total Cells Counted 100
--- NOTE | 2023-03-31 04:54 | XR ---
EXAM: XR Chest, 2 Views CLINICAL HISTORY: ITS.REASON XR Reason: Chest Pain TECHNIQUE: Frontal and lateral views of the chest. COMPARISON: No relevant prior studies available. FINDINGS: Lungs: No consolidation or mass. Pleural space: No effusion. Heart: cardiomegaly. Bones/joints: No acute findings. IMPRESSION: No acute cardiopulmonary process.
--- NOTE | 2023-03-31 05:37 | CT ---
EXAM: CT Angiography Chest Without and With Intravenous Contrast CLINICAL HISTORY: ITS.REASON CT Reason: chest pain TECHNIQUE: Axial computed tomographic angiography images of the chest without and with intravenous contrast. CTDI is 125.5 mGy and DLP is 1309.3 mGy-cm. This CT exam was performed using one or more of the following dose reduction techniques: automated exposure control, adjustment of the mA and/or kV according to patient size, and/or use of iterative reconstruction technique. MIP reconstructed images were created and reviewed. COMPARISON: No relevant prior studies available. FINDINGS: Pulmonary arteries: Bolus timing limits evaluation. No gross evidence of pulmonary embolism within the pulmonary outflow tract or immediate proximal branches. Aorta: No evidence of aneurysm or dissection along the thoracic aorta or subsequent branches. Please note that the ascending thoracic aorta is limited due to cardiac pulsation artifact. Atherosclerotic disease. 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 Distal flow noted which may be due to reconstitution. Consider dedicated imaging of the abdomen/pelvis. Lungs: Unremarkable. No mass. No consolidation. Pleural space: Pleural calcifications which may be due to sequela of prior asbestos related disease. No significant effusion. No pneumothorax. Heart: Coronary artery calcifications. No cardiomegaly. No significant pericardial effusion. No evidence of RV dysfunction. Bones/joints: Degenerative changes in the spine. No acute fracture. No dislocation. Soft tissues: Gynecomastia. Lymph nodes: Unremarkable. No enlarged lymph nodes. Other findings: Moderate narrowing of the celiac ostium. Dependent atelectatic changes. IMPRESSION: 1. No evidence of aneurysm or dissection along the thoracic aorta or subsequent branches. Please note that the ascending thoracic aorta is limited due to cardiac pulsation artifact. 2. 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 Distal flow noted which may be due to reconstitution. Consider dedicated imaging of the abdomen/pelvis. 3. Pleural calcifications which may be due to sequela of prior asbestos related disease. 4. Other incidental findings as described.
[2023-03-31] MEDS ORDERED: cloNIDine HCL 0.1 MG TAB PO STA (05:44)
--- NOTE | 2023-03-31 07:28 | ED ---
Chest Pain HPI - General Chief Complaint: Chest Pain Stated Complaint: Chest Pain, SOB Time Seen by Provider: 03/31/23 01:37 Source: patient Mode of arrival: wheelchair Limitations: no limitations - History of Present Illness Initial Comments: Da ratliff pleasant 78-year-old gentleman with extensive past medical history presents the ER today for evaluation of epigastric and retrosternal pain is been ongoing for couple of hours but progressively worsening. No associated nausea or vomiting. Pain has kept him from sleep. Patient was scheduled for a stress test with Dr Hayes at 7am today for medical clearance for hip surgery next month. Complaint: chest pain - Related Data Home Medications Medication Instructions Recorded Confirmed Losartan Potassium 100 mg PO QAM 12/01/14 11/26/21 Atorvastatin [Lipitor] 40 mg PO DAILY 11/04/17 11/26/21 Aspirin EC [Ecotrin Low Dose] 81 mg PO DAILY 11/26/21 11/26/21 Lutein 20 mg PO DAILY 11/26/21 11/26/21 Metoprolol Tartrate [Lopressor] 50 mg PO DAILY 11/26/21 11/26/21 Multivitamins, Thera [Multivitamin 1 tab PO DAILY 11/26/21 11/26/21 (formulary)] Tamsulosin HCl [Flomax] 0.4 mg PO DAILY 11/26/21 11/26/21 Zinc Gluconate [Zinc] 50 mg PO DAILY 11/26/21 11/26/21 allopurinoL [Zyloprim] 100 mg PO DAILY 11/26/21 11/26/21 Allergies Allergy/AdvReac Type Severity Reaction Status Date / Time No Known Allergies Allergy Verified 03/31/23 00:57 Review of Systems ROS Statement: Those systems with pertinent positive or pertinent negative responses have been documented in the HPI. ROS Other: All systems not noted in ROS Statement are negative. EKG Findings - EKG Comments: EKG Findings:: EKG reviewed by me, initial EKG obtained at 1:06 AM, rate is 52 rhythm is sinus bradycardia with first-degree AV block, OH 236, QRS 106, QTC [address] elevations or depressions is no evidence of acute ischemia or infarction. Repeat EKG obtained due to worsening bradycardia, EKG obtained at 121 rate is 40 rhythm is sinus bradycardia with first-degree AV block, OH 241, Curasol [address] elevations or depressions no evidence of acute seem or infarction. Past Medical History Past Medical History: Hyperlipidemia, Hypertension, Musculoskeletal Disorder, Prostate Disorder Additional Past Medical History / Comment(s): LUMBAR PAIN.covid History of Any Multi-Drug Resistant Organisms: None Reported Past Surgical History: Appendectomy, Back Surgery, Orthopedic Surgery Additional Past Surgical History / Comment(s): CHRIS ROTATOR CUFF, CHRIS CATARACT SX, LT CAROTID ENDARTECTOMY. COLONOSCOPY. EPIDURALS, LAST 08/2017. Lumbar fusion L4-S1 post transforaminal 11/16/17, Past Anesthesia/Blood Transfusion Reactions: Previous Problems w/ Anesthesia Additional Past Anesthesia/Blood Transfusion Reaction / Comment(s): B/P DROPPED POST OP Past Psychological History: No Psychological Hx Reported Smoking Status: Former smoker Past Alcohol Use History: Occasional Past Drug Use History: None Reported - Past Family History Sister(s) Family Medical History: Cancer Additional Family Medical History / Comment(s): BLADDER General Exam Limitations: no limitations General appearance: alert, in distress, obese, other (diaphoretic, uncomfortable) Head exam: Present: atraumatic, normocephalic Eye exam: Present: PERRL Respiratory exam: Present: normal lung sounds bilaterally. Absent: respiratory distress Cardiovascular Exam: Present: bradycardia GI/Abdominal exam: Present: soft Rectal exam: Present: deferred Extremities exam: Present: normal capillary refill Neurological exam: Present: alert, oriented X3 Psychiatric exam: Present: normal affect, normal mood Skin exam: Present: warm, diaphoretic Course Vital Signs 03/31/23 03/31/23 03/31/23 00:58 01:40 01:53 Temperature 97.4 F L Pulse Rate 44 L 40 L 56 L Respiratory 22 20 18 Rate Blood Pressure 139/74 114/72 186/90 O2 Sat by Pulse 98 98 97 Oximetry 03/31/23 03/31/23 03/31/23 02:41 03:00 04:00 Temperature Pulse Rate 56 L 48 L 57 L Respiratory 18 16 18 Rate Blood Pressure 192/91 194/82 174/71 O2 Sat by Pulse 97 95 98 Oximetry 03/31/23 03/31/23 03/31/23 05:30 06:09 07:03 Temperature Pulse Rate 58 L 58 L 56 L Respiratory 16 16 18 Rate Blood Pressure 183/77 199/93 157/82 O2 Sat by Pulse 98 97 98 Oximetry Chest Pain MDM - MDM Was pt. sent in by a medical professional or institution (, PA, STRATEGIC PLANNING MANAGER, urgent care, hospital, or shelter...) When possible be specific @ -No Did you speak to anyone other than the patient for history (EMS, parent, family, police, friend...)? What history was obtained from this source @ -Yes, at bedside Did you review nursing and triage notes (agree or disagree)? Why? @ -I reviewed and agree with nursing and triage notes Were old charts reviewed (outside hosp., previous admission, EMS record, old EKG, old radiological studies, urgent care reports/EKG's, shelter records)? Report findings @ -No old charts were reviewed Differential Diagnosis (chest pain, altered mental status, abdominal pain women, abdominal pain men, vaginal bleeding, weakness, fever, dyspnea, syncope, headache, dizziness, GI bleed, back pain, seizure, CVA, palpatations, mental health)? @ -Differential Chest Pain: Stable Angina, Unstable Angina, STEMI, NSTEMI Aortic Dissection, Pneumothorax, Musculoskeletal, Esophageal Spasm GERD, Cholecystitis, Pancreatitis, Zoster, this is not meant to be an all-inclusive list. EKG interpreted by me (3pts min.). @ -As above X-rays interpreted by me (1pt min.). @ -No pneumothorax or consolidation CT interpreted by me (1pt min.). @ -Tortuous aorta with no dissection U/S interpreted by me (1pt. min.). @ -None done What testing was considered but not performed or refused? (CT, X-rays, U/S, labs)? Why? @ -None What meds were considered but not given or refused? Why? @ -None Did you discuss the management of the patient with other professionals (professionals i.e. , ANUP, STRATEGIC PLANNING MANAGER, lab, RT, psych nurse, child welfare social worker, hard tile setter apprentice, teacher, customer service security officer, window caser)? Give summary @ -No Was smoking cessation discussed for >3mins.? @ -No Was critical care preformed (if so, how long)? @ -No Were there social determinants of health that impacted care today? How? (Homelessness, low income, unemployed, alcoholism, drug addiction, transportation, low edu. Level, literacy, decrease access to med. care, halfway, rehab)? @ -No Was there de-escalation of care discussed even if they declined (Discuss DNR or withdrawal of care, Hospice)? DNR status @ -No What co-morbidities impacted this encounter? (DM, HTN, Smoking, COPD, CAD, Cancer, CVA, ARF, Chemo, Hep., AIDS, mental health diagnosis, sleep apnea, morbid obesity)? @ -None Was patient admitted / discharged? Hospital course, mention meds given and route, prescriptions, significant lab abnormalities, going to OR and other pertinent info. @ -Admit to obs She arrives complaining of epigastric and retrosternal pain. Patient is rutledge and diaphoretic upon arrival. Patient is noted to be profoundly hypertensive and artifact upon arrival. Labs EKG chest x-ray and pain medications were ordered. EKG was nonischemic chest x-ray with no pneumothorax or focal consolidations CTA of the chest was ordered. Patient received Dilaudid for pain management and was able to rest comfortably however he remained hypertensive due to his persistent bradycardia beta blockers were voiding was given a dose of 18. Pressure improved significantly. CTA results of with concern for possible SMA occlusion therefore CT of the abdomen was ordered. Additional IV fluids were ordered. Patient will be admitted for continued IV hydration, evaluation by cardiology due to hypertension and bradycardia. Dr Jolly accepts admission Undiagnosed new problem with uncertain prognosis? @ -No Drug Therapy requiring intensive monitoring for toxicity (Heparin, Nitro, Insulin, Cardizem)? @ -No Were any procedures done? @ -No Diagnosis/symptom? @ HTN, chest pain, bradycardia Acute, or Chronic, or Acute on Chronic? @ -[defaut] Uncomplicated (without systemic symptoms) or Complicated (systemic symptoms)? @ -[defaut] Side effects of treatment? @ -[o] Exacerbation, Progression, or Severe Exacerbation? @ -[o] Poses a threat to life or bodily function? How? (Chest pain, [place], [place], pneumonia, PE, COPD, DKA, ARF, appy, cholecystitis, CVA, Diverticulitis, Homicidal, Suicidal, threat to staff... and all critical care pts) @ -[o] Disposition Clinical Impression: Hypertension, Bradycardia, Chest pain Disposition: ADMITTED IP TO THIS HOSP Condition: Stable Referrals: Loida Dong DO [Primary Care Provider] - 1-2 days
[2023-03-31] MEDS ORDERED: NITROGLYCERIN SL TABS 0.4 MG TAB SUBLINGUAL PRN (07:34)
--- NOTE | 2023-03-31 07:57 | CT ---
EXAMINATION TYPE: CT angio abdomen pelvis CT DLP: 2445.8 mGycm, Automated exposure control for dose reduction was used. 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 Patient was given Isovue 370, 100 cc intravenously. 3-D reconstructe d images and maximum intensity projection images were obtained of the abdomen and pelvis arterial vas culature. FINDINGS: CTA Abdomen and pelvis: Ectasia of the infrarenal abdominal aorta measuring up to 2.8 cm. Moderate at herosclerotic plaque throughout the abdominal aorta and its branches. No abdominal aortic aneurysm. T he origins of the renal arteries, inferior mesenteric artery, and celiac axis are patent. Moderate to severe stenosis at the origin of the left renal artery and moderate stenosis at the origin of the ri ght renal artery. There is occlusion at the origin of the SMA with calcified and noncalcified plaque identified (series 501, image 85). This measures a length of 1.5 cm with subsequent reconstitution of the SMA. Appears similar to prior examination in 05/01/21. No dilatation identified. High-grade stenos is of the origin the inferior mesenteric artery secondary to calcified plaque. Moderate atherosclero tic plaquing with some mural thrombus formation is identified in the common iliac arteries. There is at least mild to moderate stenosis in the left common iliac artery secondary to calcified plaque. VISCERA: The liver, spleen, adrenal glands, kidneys, pancreas, and gallbladder are not optimally enha nced due the arterial phase utilized. LIVER: Unremarkable GALLBLADDER AND BILE DUCTS: Cholelithiasis is demonstrated. PANCREAS: Unremarkable. SPLEEN: Unremarkable. ADRENAL GLANDS: Unremarkable. KIDNEYS AND URETERS: No hydronephrosis. Contrast is demonstrated within both collecting system which limits evaluation for renal calculi. Left renal subcentimeter hypodense focus which is too small to characterize but likely represents a cyst. Stable from prior exam. PELVIS BLADDER: Contrast filled without filling defect. REPRODUCTIVE: Unremarkable. ABDOMEN & PELVIS STOMACH AND BOWEL: Stomach and duodenum are unremarkable. Colonic diverticulosis without evidence for acute diverticulitis. No evidence of bowel obstruction. PERITONEUM: No evidence of pneumoperitoneum or free fluid. MUSCULOSKELETAL: No acute osseous abnormalities. Postsurgical changes from fusion involving L4-S1 wit h disc spacers. Similar grade 1 anterolisthesis of L5 on S1 with bilateral pars defects. Mild retroli sthesis of L2 on L3. LYMPH NODES: No gross evidence for lymphadenopathy. SOFT TISSUE/ABDOMINAL WALL: Unremarkable LOWER CHEST: Please refer to dedicated CTA chest of the same date. IMPRESSION 1. 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 This is similar in appearance to prior exam on 05/01/21. Moderate right and m oderate to severe left stenosis of the renal arteries secondary to calcified noncalcified plaque. At least [id number] stenosis of the left common iliac artery secondary to calcified plaque. Infrar enal abdominal aortic ectasia measuring up to 2.8 cm. 2. Colonic diverticulosis. 3. Cholelithiasis.
[2023-03-31] MEDS: SODIUM CHLORIDE 0.9% 1,000 ML IV SCH ×2 (08:30→16:56)
--- NOTE | 2023-03-31 14:00 | P.HPIM ---
History of Present Illness H&P Date: 03/31/23 History and Physical and Discharge Summary: This is a 78-year-old gentleman with past medical history significant for peripheral vascular disease hypertension, hyperlipidemia, COVID ,prostate disorder, muscle skeletal disorder, former nicotine dependence, [place] and multiple other medical issues presented to the ER with complaints of chest pain, hypertension, bradycardia. Reports he woke up this morning with diffuse abdominal discomfort, radiated up into his chest, accompanied by clamminess. Yesterday reported asymptomatic. He denies shortness of breath. Maintaining O2 sats in the mid to high 90s on room air. Denies nausea vomiting or diarrhea. Denies lightheadedness dizziness or focal deficits. Currently denies chest pain, palpitations. On admission heart rates were in the 40s currently in the 60s, hypertensive. Telemetry sinus rhythm. Evaluated by cardiology with EKG reviewed. Chest x-ray reported no acute cardiopulmonary process . Chest CTA reported negative for pulmonary embolism, no evidence of aneurysm or dissection along the thoracic aorta or subsequent branches. 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 Distal flow noted which may be due to reconstitution. Pleural calcifications which may be due to sequela of prior asbestos related disease. CTA of abdomen/pelvis reported occlusion of the SMA at its origin with subsequent reconstitution secondary to calcified and noncalcified plaque. This is similar in appearance to prior exam on May 01, 2021. Moderate right and moderate to severe left stenosis of the renal artery secondary to calcified noncalcified plaque. At least mild to moderate stenosis of the left common iliac artery secondary to calcified plaque. Infrarenal abdominal aortic ectasia measuring up to 2.8 cm. Colonic diverticulosis. Cholelithiasis.Lactic acid negative. WBC 11.3, hemoglobin 14, platelets 145. Coagulation /chemistry panels unremarkable. Review of Systems ROS Statement: Those systems with pertinent positive or pertinent negative responses have been documented in the HPI. ROS Other: All systems not noted in ROS Statement are negative. Past Medical History Past Medical History: Hyperlipidemia, Hypertension, Musculoskeletal Disorder, Prostate Disorder Additional Past Medical History / Comment(s): LUMBAR PAIN.covid History of Any Multi-Drug Resistant Organisms: None Reported Past Surgical History: Appendectomy, Back Surgery, Orthopedic Surgery Additional Past Surgical History / Comment(s): CHRIS ROTATOR CUFF, CHRIS CATARACT SX, LT CAROTID ENDARTECTOMY. COLONOSCOPY. EPIDURALS, LAST 08/2017. Lumbar fusion L4-S1 post transforaminal 11/16/17, Past Anesthesia/Blood Transfusion Reactions: Previous Problems w/ Anesthesia Additional Past Anesthesia/Blood Transfusion Reaction / Comment(s): B/P DROPPED POST OP Past Psychological History: No Psychological Hx Reported Smoking Status: Former smoker Past Alcohol Use History: Occasional Past Drug Use History: None Reported - Past Family History Sister(s) Family Medical History: Cancer Additional Family Medical History / Comment(s): BLADDER Medications and Allergies Home Medications Medication Instructions Recorded Confirmed Type Losartan Potassium 100 mg PO DAILY 12/01/14 03/31/23 History Atorvastatin [Lipitor] 40 mg PO DAILY 11/04/17 03/31/23 History Aspirin EC [Ecotrin Low Dose] 81 mg PO DAILY 11/26/21 03/31/23 History Lutein 20 mg PO HS 11/26/21 03/31/23 History Multivitamins, Thera [Multivitamin 1 tab PO HS 11/26/21 03/31/23 History (formulary)] Zinc Gluconate [Zinc] 50 mg PO DAILY 11/26/21 03/31/23 History allopurinoL [Zyloprim] 100 mg PO DAILY 11/26/21 03/31/23 History Cholecalciferol (Vitamin D3) 75 mcg PO HS 03/31/23 03/31/23 History [Vitamin D3 (3000 Iu)] Magnesium 250 mg PO HS 03/31/23 03/31/23 History Metoprolol Tartrate [Lopressor] 25 mg PO DAILY #30 tab 03/31/23 Rx Omeprazole [PriLOSEC] 20 mg PO Q2D 03/31/23 03/31/23 History Allergies Allergy/AdvReac Type Severity Reaction Status Date / Time No Known Allergies Allergy Verified 03/31/23 08:47 Physical Exam Vitals: Vital Signs Temp Pulse Resp BP Pulse Ox 03/31/23 11:45 64 16 159/94 94 L 03/31/23 09:45 56 L 18 135/59 97 03/31/23 08:22 97.1 F L 62 18 152/60 97 03/31/23 07:03 56 L 18 157/82 98 03/31/23 06:09 58 L 16 199/93 97 03/31/23 05:30 58 L 16 183/77 98 03/31/23 04:00 57 L 18 174/71 98 03/31/23 03:00 48 L 16 194/82 95 03/31/23 02:41 56 L 18 192/91 97 03/31/23 01:53 56 L 18 186/90 97 03/31/23 01:40 40 L 20 114/72 98 03/31/23 00:58 97.4 F L 44 L 22 139/74 98 Intake and Output 03/30/23 03/31/23 03/31/23 22:59 06:59 14:59 Other: Weight 108.862 kg PHYSICAL EXAM: VITAL SIGNS: [As above] GENERAL: Well-nourished ,alert and oriented x 3, sitting up on stretcher, no acute distress. HEENT: Normocephalic, atraumatic, conjunctivae normal. eyes normal. MMM. NECK: Supple, no JVD. No thyroid enlargement. No LNs CARDIOVASCULAR: S1, S2 regular. Systolic murmur RESPIRATION: Unlabored, equal air entry, CTA with bilateral bases diminished. ABDOMEN: Soft, nondistended, diffuse tenderness ,no guarding. no masses palpable. No ascites, No hepatosplenomegaly.Bowel sounds heard. LEGS: No edema. no swelling PSYCHIATRY: Alert and oriented X3, mood and affect normal. NERVOUS SYSTEM: Cranial N 2-12 grossly normal.No focal deficits. Skin: Warm and dry, no rash Results CBC & Chem 7: 03/31/23 01:05 03/31/23 01:05 Labs: Abnormal Lab Results - Last 24 Hours (Table) 03/31/23 03/31/23 03/31/23 Range/Units 01:05 01:05 01:19 Plt Count 145 L (150-450) k/uL Monocytes # (Manual) 1.40 H (0-1.0) k/uL Glucose 155 H (74-99) mg/dL POC Glucose (mg/dL) 146 H (70-110) mg/dL Assessment and Plan Assessment: Chest pain,troponins negative x 3, accompanied by diffuse abdominal pain. 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, patient with history of peripheral vascular disease, maintained on statin, aspirin and keep hydrated Moderate right renal artery stenosis,Moderate to severe left renal artery stenosis, further follow-up outpatient Mild to moderate stenosis of left common iliac artery, further follow-up outpatient Colonic diverticulosis Cholelithiasis Infrarenal abdominal aortic Extavia measuring up to 2.8 cm Osteoporosis, scheduled for right total hip arthroplasty 04/14/2023 Chronic back pain, history of lumbar spine surgery Former nicotine dependence, quit 20 years ago Plan: Continue on current medication regimen, monitoring and symptomatic treatment. CTA discussed with patient, advised to maintain on statin, aspirin and reinforced keeping hydrated. Evaluated by cardiology, metoprolol decreased to 25 mg daily, outpatient stress test outpatient. Cleared by cardiology for discharge. Patient will be discharged home today in a stable condition with guarded prognosis. Discharge Medication List Losartan Potassium 100 mg PO DAILY 12/01/14 [History] Atorvastatin [Lipitor] 40 mg PO DAILY 11/04/17 [History] Aspirin EC [Ecotrin Low Dose] 81 mg PO DAILY 11/26/21 [History] Lutein 20 mg PO HS 11/26/21 [History] Multivitamins, Thera [Multivitamin (formulary)] 1 tab PO HS 11/26/21 [History] Zinc Gluconate [Zinc] 50 mg PO DAILY 11/26/21 [History] allopurinoL [Zyloprim] 100 mg PO DAILY 11/26/21 [History] Cholecalciferol (Vitamin D3) [Vitamin D3 (3000 Iu)] 75 mcg PO HS 03/31/23 [History] Magnesium 250 mg PO HS 03/31/23 [History] Metoprolol Tartrate [Lopressor] 25 mg PO DAILY #30 tab 03/31/23 [Rx] Omeprazole [PriLOSEC] 20 mg PO Q2D 03/31/23 [History] The impression and plan of care has been dictated as directed. : I performed a history and examination of this patient, discussed the same with the dictator. I agree with the dictator's note ,documented as a scribe. Any additional findings or plans will be noted.
[2023-03-31] MEDS ORDERED: ONDANSETRON 4 MG/2 ML VIAL IVP PRN (14:03)
[2023-03-31] MEDS: PANTOPRAZOLE 40 MG/10 ML VIAL IVP SCH (14:11)
--- NOTE | 2023-03-31 14:21 | P.CRDCN ---
History of Present Illness History of present illness: HISTORY OF PRESENT ILLNESS: This is a 78-year-old male with a past medical history significant for hypertension, hyperlipidemia, peripheral vascular disease, and former nicotine dependence. Patient follows in the office with Dr. Hayes. We have been asked to see the patient in consultation for chest pain, bradycardia, and hypertension. Patient examined at the bedside in the emergency room. The patient is scheduled to undergo right total hip arthroplasty by Dr. Kwong on April 14, 2013. The patient was initially scheduled for an outpatient stress test this morning at the cardiology office. The patient states this morning he woke up and started having abdominal discomfort. He states the pain then radiated up into his chest. He reports that the pain is worse with palpation. He also reports feeling cold at the time of examination. At the time of examination, the corinna ent denies any chest pain or pressure. Patient's heart rate was initially low in the 40s50s when he presented to the hospital. At the time of examination, the patient is maintaining sinus mechanism with a heart rate in the 80s. Most recent blood pressure 144/82. DIAGNOSTICS: - EKG reveals sinus bradycardia with a heart rate of 40. No signs of acute ischemia. No evidence of high grade AV block - Chest xray negative for acute process. - Chest CTA: Negative for pulmonary embolism. No evidence of aneurysm or dissection along the thoracic aorta or subsequent branches. 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 Distal flow noted which may be due to reconstitution. Pleural calcifications which may be due to sequela of prior asbestos related disease. 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 This is similar in appearance to prior exam on May 01, 2021. Moderate right and moderate to severe left stenosis of the renal artery secondary to calcified noncalcified plaque. At least mild to moderate stenosis of the left common iliac artery secondary to calcified plaque. Infrarenal abdominal aortic ectasia measuring up to 2.8 cm. Colonic diverticulosis. Cholelithiasis. - Laboratory data: - Current home cardiac medications include aspirin 81 mg daily, Lipitor 40 mg daily, losartan 100 mg daily, metoprolol tartrate 50 mg daily - Most recent echocardiogram obtained in 2020 revealed normal EF, mild MR, mild TR -Patient underwent Lexiscan stress test in March 2018 which was negative for ischemia REVIEW OF SYSTEMS: At the time of my exam: CONSTITUTIONAL: Denies fever or chills. HEENT: Denies blurred vision, vision changes, or eye pain. Denies hemoptysis CARDIOVASCULAR: Denies chest pain. Denies orthopnea. Denies PND. Denies palpitations RESPIRATORY: Denies shortness of breath. GASTROINTESTINAL: Denies abdominal pain. Denies nausea or vomiting. HEMATOLOGIC: Denies bleeding disorders. GENITOURINARY: Denies any blood in urine. SKIN: Denies pruitis. Denies rash. PHYSICAL EXAM: VITAL SIGNS: Reviewed. GENERAL: Well-developed in no acute distress. HEENT: Head is normocephalic. Pupils are equal, round. Sclerae anicteric. Mucous membranes of the mouth are moist. Neck supple. No JVD or thyromegaly LUNGS: Respirations even and unlabored. Lungs essentially clear to auscultation bilaterally. HEART: Regular rate and rhythm. S1 and S2 heard. Systolic murmur noted. ABDOMEN: Soft. Nondistended. Nontender. EXTREMITIES: Normal range of motion. No clubbing or cyanosis. Peripheral pulses intact. No lower extremity edema NEUROLOGIC: Awake and alert. Oriented x 3. 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 Signing provider agrees with the documented findings, assessment, and plan of care documented by PAEDIATRICIAN as a scribe. Past Medical History Past Medical History: Hyperlipidemia, Hypertension, Musculoskeletal Disorder, Prostate Disorder Additional Past Medical History / Comment(s): LUMBAR PAIN.covid History of Any Multi-Drug Resistant Organisms: None Reported Past Surgical History: Appendectomy, Back Surgery, Orthopedic Surgery Additional Past Surgical History / Comment(s): CHRIS ROTATOR CUFF, CHRIS CATARACT SX, LT CAROTID ENDARTECTOMY. COLONOSCOPY. EPIDURALS, LAST 08/2017. Lumbar fusion L4-S1 post transforaminal 11/16/17, Past Anesthesia/Blood Transfusion Reactions: Previous Problems w/ Anesthesia Additional Past Anesthesia/Blood Transfusion Reaction / Comment(s): B/P DROPPED POST OP Past Psychological History: No Psychological Hx Reported Smoking Status: Former smoker Past Alcohol Use History: Occasional Past Drug Use History: None Reported - Past Family History Sister(s) Family Medical History: Cancer Additional Family Medical History / Comment(s): BLADDER Medications and Allergies Home Medications Medication Instructions Recorded Confirmed Type Losartan Potassium 100 mg PO DAILY 12/01/14 03/31/23 History Atorvastatin [Lipitor] 40 mg PO DAILY 11/04/17 03/31/23 History Aspirin EC [Ecotrin Low Dose] 81 mg PO DAILY 11/26/21 03/31/23 History Lutein 20 mg PO HS 11/26/21 03/31/23 History Metoprolol Tartrate [Lopressor] 50 mg PO DAILY 11/26/21 03/31/23 History Multivitamins, Thera [Multivitamin 1 tab PO HS 11/26/21 03/31/23 History (formulary)] Zinc Gluconate [Zinc] 50 mg PO DAILY 11/26/21 03/31/23 History allopurinoL [Zyloprim] 100 mg PO DAILY 11/26/21 03/31/23 History Cholecalciferol (Vitamin D3) 75 mcg PO HS 03/31/23 03/31/23 History [Vitamin D3] Magnesium 250 mg PO HS 03/31/23 03/31/23 History Omeprazole [PriLOSEC] 20 mg PO Q2D 03/31/23 03/31/23 History Allergies Allergy/AdvReac Type Severity Reaction Status Date / Time No Known Allergies Allergy Verified 03/31/23 08:47 Physical Exam Vitals: Vital Signs Temp Pulse Resp BP Pulse Ox 03/31/23 09:45 56 L 18 135/59 97 03/31/23 08:22 97.1 F L 62 18 152/60 97 03/31/23 07:03 56 L 18 157/82 98 03/31/23 06:09 58 L 16 199/93 97 03/31/23 05:30 58 L 16 183/77 98 03/31/23 04:00 57 L 18 174/71 98 03/31/23 03:00 48 L 16 194/82 95 03/31/23 02:41 56 L 18 192/91 97 03/31/23 01:53 56 L 18 186/90 97 03/31/23 01:40 40 L 20 114/72 98 03/31/23 00:58 97.4 F L 44 L 22 139/74 98 Intake and Output 03/30/23 03/31/23 03/31/23 22:59 06:59 14:59 Other: Weight 108.862 kg Results 03/31/23 01:05 03/31/23 01:05 Cardiac Enzymes 03/31/23 03/31/23 03/31/23 Range/Units 01:05 01:05 08:33 AST 32 (17-59) U/L Troponin I <0.012 <0.012 (0.000-0.034) ng/mL Coagulation 03/31/23 Range/Units 01:05 PT 11.3 (10.0-12.5) sec APTT 24.1 (22.0-30.0) sec CBC 03/31/23 Range/Units 01:05 WBC 9.3 (3.8-10.6) k/uL RBC 4.31 (4.30-5.90) m/uL Hgb 14.0 (13.0-17.5) gm/dL Hct 39.9 (39.0-53.0) % Plt Count 145 L (150-450) k/uL Comprehensive Metabolic Panel 03/31/23 Range/Units 01:05 Sodium 140 (137-145) mmol/L Potassium 3.6 (3.5-5.1) mmol/L Chloride 106 (98-107) mmol/L Carbon Dioxide 24 (22-30) mmol/L BUN 19 (9-20) mg/dL Creatinine 0.83 (0.66-1.25) mg/dL Glucose 155 H (74-99) mg/dL Calcium 9.4 (8.4-10.2) mg/dL AST 32 (17-59) U/L ALT 29 (4-49) U/L Alkaline Phosphatase 110 (38-126) U/L Total Protein 6.8 (6.3-8.2) g/dL Albumin 4.1 (3.5-5.0) g/dL Current Medications Generic Name Dose Route Start Last Admin Trade Name Freq PRN Reason Stop Dose Admin Aspirin 325 mg 04/01/23 09:00 Aspirin 325 Mg Tab PO DAILY JANELL Sodium Chloride 1,000 mls @ 130 mls/hr 03/31/23 08:00 03/31/23 08:30 Saline 0.9% IV 130 mls/hr .[id number] JANELL Administration Morphine Sulfate 4 mg 03/31/23 01:48 03/31/23 08:33 Morphine Sulfate 4 Mg/Ml Syringe IVP 4 mg ONCE PRN Administration Pain Nitroglycerin 0.4 mg 03/31/23 07:34 Nitroglycerin Sl Tabs 0.4 Mg Tab SUBLINGUAL Q5M PRN Chest Pain Intake and Output 03/30/23 03/31/23 03/31/23 22:59 06:59 14:59 Other: Weight 108.862 kg 03/31/23 01:05 03/31/23 01:05
[2023-04-01 03:28] VITALS: RESP 16
[2023-04-01] MEDS: SODIUM CHLORIDE 0.9% 1,000 ML IV SCH (06:48)
[2023-04-01] MEDS: PANTOPRAZOLE 40 MG/10 ML VIAL IVP SCH (08:29)
[2023-04-01] MEDS ORDERED: ATORVASTATIN 40 MG TAB PO SCH (09:00)
[2023-04-01] MEDS ORDERED: LOSARTAN 50 MG TAB PO SCH (09:00)
[2023-04-01] MEDS ORDERED: ASPIRIN 81 MG PO SCH (09:00)
[2023-04-01] MEDS ORDERED: METOPROLOL TARTRATE 50 MG TAB PO SCH (09:00)
[2023-04-01] MEDS ORDERED: METOPROLOL TARTRATE 25 MG TAB PO SCH (09:00)
[2023-04-01] MEDS ORDERED: ASPIRIN 325 MG TAB PO SCH (09:00)
[2023-04-01 09:03] VITALS: BP 149/74; PULSE 62; TEMP 98
--- NOTE | 2023-04-01 10:10 | P.DS ---
Providers Date of admission: 03/31/23 07:34 Expected date of discharge: 04/01/23 Attending physician: Bryan Jolly MD Primary care physician: Loida Dong [facility] Course: Final Diagnoses: Chest pain,troponins negative x 3, accompanied by diffuse abdominal pain. 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, patient with history of peripheral vascu lar disease, maintained on statin, aspirin and keep hydrated Moderate right renal artery stenosis,Moderate to severe left renal artery stenosis Mild to moderate stenosis of left common iliac artery Colonic diverticulosis Cholelithiasis Infrarenal abdominal aortic Extavia measuring up to 2.8 cm Osteoporosis, scheduled for right total hip arthroplasty 04/14/2023 Chronic back pain, history of lumbar spine surgery Former nicotine dependence, 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 Reports he woke up this morning with diffuse abdominal discomfort, radiated up into his chest, accompanied by clamminess. Yesterday reported asymptomatic. He denies shortness of breath. Maintaining O2 sats in the mid to high 90s on room air. Denies nausea vomiting or diarrhea. Denies lightheadedness dizziness or focal deficits. Currently denies chest pain, palpitations. On admission heart rates were in the 40s currently in the 60s, hypertensive. Telemetry sinus rhythm. Evaluated by cardiology with EKG reviewed. Chest x-ray reported no acute cardiopulmonary process . Chest CTA reported negative for pulmonary embolism, no evidence of aneurysm or dissection along the thoracic aorta or subsequent branches. 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 Distal flow noted which may be due to reconstitution. Pleural calcifications which may be due to sequela of prior asbestos related disease. CTA of abdomen/pelvis reported occlusion of the SMA at its origin with subseq uent reconstitution secondary to calcified and noncalcified plaque. This is similar in appearance to prior exam on May 01, 2021. Moderate right and moderate to severe left stenosis of the renal artery secondary to calcified noncalcified plaque. At least mild to moderate stenosis of the left common iliac artery secondary to calcified plaque. Infrarenal abdominal aortic ectasia measuring up to 2.8 cm. Colonic diverticulosis. Cholelithiasis.Lactic acid negative. WBC 11.3, hemoglobin 14, platelets 145. Coagulation /chemistry panels unremarkable. CTA discussed with patient, advised to maintain on statin, aspirin, healthy diet and reinforced maintaining hydration. Evaluated by cardiology, metoprolol decreased to 25 mg daily, outpatient stress test will need to be rescheduled outpatient prior to his upcoming hip surgery on April 14. Cleared by cardiology for discharge. Patient will be discharged home today in a stable condition with guarded prognosis. Patient complained of ongoing nausea, dizziness yesterday, DC held and continued on IV fluid hydration. Significant clinical improvement. Denies chest pain, palpitations or shortness of breath. Maintaining O2 sats in the mid 90s to 100% on room air. Ambulating, tolerating exertion well. Denies lightheadedness, dizziness or focal deficits. Sitting up at bedside, consumed 100% of breakfast with no nausea vomiting or diarrhea. patient will be discharged this morning in a stable condition with guarded prognosis. The impression and plan of care has been dictated as directed. : I performed a history and examination of this patient, discussed the same with the dictator. I agree with the dictator's note ,documented as a scribe. Any additional findings or plans will be noted. Patient Condition at Discharge: Stable Plan - Discharge Summary Discharge Rx Participant: No New Discharge Prescriptions: New Metoprolol Tartrate [Lopressor] 25 mg PO DAILY #30 tab Continue Losartan Potassium 100 mg PO DAILY Atorvastatin [Lipitor] 40 mg PO DAILY Aspirin EC [Ecotrin Low Dose] 81 mg PO DAILY Cholecalciferol (Vitamin D3) [Vitamin D3 (3000 Iu)] 75 mcg PO HS Zinc Gluconate [Zinc] 50 mg PO DAILY Multivitamins, Thera [Multivitamin (formulary)] 1 tab PO HS Lutein 20 mg PO HS allopurinoL [Zyloprim] 100 mg PO DAILY Omeprazole [PriLOSEC] 20 mg PO Q2D Magnesium 250 mg PO HS Discontinued Metoprolol Tartrate [Lopressor] 50 mg PO DAILY Discharge Medication List Losartan Potassium 100 mg PO DAILY 12/01/14 [History] Atorvastatin [Lipitor] 40 mg PO DAILY 11/04/17 [History] Aspirin EC [Ecotrin Low Dose] 81 mg PO DAILY 11/26/21 [History] Lutein 20 mg PO HS 11/26/21 [History] Multivitamins, Thera [Multivitamin (formulary)] 1 tab PO HS 11/26/21 [History] Zinc Gluconate [Zinc] 50 mg PO DAILY 11/26/21 [History] allopurinoL [Zyloprim] 100 mg PO DAILY 11/26/21 [History] Cholecalciferol (Vitamin D3) [Vitamin D3 (3000 Iu)] 75 mcg PO HS 03/31/23 [History] Magnesium 250 mg PO HS 03/31/23 [History] Metoprolol Tartrate [Lopressor] 25 mg PO DAILY #30 tab 03/31/23 [Rx] Omeprazole [PriLOSEC] 20 mg PO Q2D 03/31/23 [History] Follow up Appointment(s)/Referral(s): Bryan Jolly MD [STAFF PHYSICIAN] - 1 Week Patient Instructions/Handouts: Chest Pain (DC), Hypertension (ED) Discharge Disposition: HOME SELF-CARE
[2023-04-01 11:44] LABS: Chol/HDL Ratio 2.09 Ratio; LDL Cholesterol,Calculated 39.9 mg/dL (0.0-131.0); VLDL Calculation 10.12 mg/dL (5.00-40.00)
== END 2023-04-01 11:34 | disposition home or self-care (01) ==
LOC: EC 00:45 → 6NMEDSUR 07:34
PROVIDERS: ADMIT Family Medicine; ATTEND Family Medicine
DX: R07.89 Other chest pain (principal); E86.0 Dehydration; I10 Essential (primary) hypertension; R00.1 Bradycardia, unspecified; R10.13 Epigastric pain; R61 Generalized hyperhidrosis; E78.5 Hyperlipidemia, unspecified; I77.811 Abdominal aortic ectasia; I44.0 Atrioventricular block, first degree; I70.1 Atherosclerosis of renal artery; I70.8 Atherosclerosis of other arteries; I73.9 Peripheral vascular disease, unspecified; K80.20 Calculus of gallbladder without cholecystitis without obstruction; K57.90 Diverticulosis of intestine, part unspecified, without perforation or abscess without bleeding; K55.1 Chronic vascular disorders of intestine; M81.0 Age-related osteoporosis without current pathological fracture; G89.29 Other chronic pain; M54.50 Low back pain, unspecified; Z98.1 Arthrodesis status; Z79.82 Long term (current) use of aspirin; Z79.899 Other long term (current) drug therapy; Z87.891 Personal history of nicotine dependence; Z86.16 Personal history of COVID-19; Z90.49 Acquired absence of other specified parts of digestive tract; Z98.890 Other specified postprocedural states
CPT/HCPCS: 96376 ×2; 96361; 96374; 96375; 99285; 36415; 93005; 80061; 80053; 83605; 83690; 83735; 84484; 85025; 85610; 85730; 71046; 71275; 74174; G0378 ×2; J2270; J2405; J1170; C9113 ×2; Q9967

== ENCOUNTER → 2023-04-03 | Outpatient (CLI) | payer MEDICARE ==
[2023-04-03 15:34] LABS: Prothrombin Time 11.3 sec (10.0-12.5)
[2023-04-03 21:00] LABS: ALT 106 U/L (10-49); AST 88 U/L (14-35); Albumin 4.2 g/dL (3.8-4.9); Alkaline Phosphatase 112 U/L (41-126); BUN/Creat Ratio 11.78 Ratio (12.00-20.00); Blood Urea Nitrogen 10.6 mg/dL (9.0-27.0); Calcium 9.5 mg/dL (8.7-10.3); Carbon Dioxide 26.6 mmol/L (21.6-31.8); Chloride 101 mmol/L (96-109); Globulin 2.8 g/dL (1.6-3.3); Glucose 120 mg/dL (70-110); Sodium 141 mmol/L (135-145); Total Bilirubin 1.1 mg/dL (0.3-1.2)
[2023-04-03 21:09] LABS: HCT 43.7 % (39.6-50.0); HGB 14.3 g/dL (13.0-17.0); MCH 31.2 pg (27.0-32.0); MCHC 32.7 g/dL (32.0-37.0); MCV 95.2 FL (80.0-97.0); NRBC Per 100 WBC 0 X 10*3/uL (0.00-0.01); Platelet Count 153 X 10*3/uL (140-440); RBC 4.59 X 10*6/uL (4.40-5.60); RDW 13.7 % (11.5-14.5); WBC 11.36 X 10*3/uL (4.50-10.00)
== END | disposition home or self-care (01) ==
LOC: LABPAT 14:01
PROVIDERS: ATTEND Orthopaedic Surgery
DX: Z01.812 Encounter for preprocedural laboratory examination (principal); Z22.322 Carrier or suspected carrier of Methicillin resistant Staphylococcus aureus; M16.11 Unilateral primary osteoarthritis, right hip
CPT/HCPCS: 80053; 85027; 85610; 85730; 86850; 86900; 86901

== ENCOUNTER → 2023-04-08 | Outpatient (CLI) | payer MEDICARE | END | disposition home or self-care (01) | LOC: LABPAT 13:41 | PROVIDERS: ATTEND Orthopaedic Surgery | DX: Z01.812 Encounter for preprocedural laboratory examination (principal); M16.11 Unilateral primary osteoarthritis, right hip; Z22.322 Carrier or suspected carrier of Methicillin resistant Staphylococcus aureus | CPT/HCPCS: 87070 ==

== ENCOUNTER 2023-04-14 08:59 | Day surgery (SDC) | payer MEDICARE ==
[~2023-04-14 08:59] MED LIST changes: -BACITRACIN 50,000 UNIT, POLYMYXIN B 500,000 UNIT in SODIUM CHLORIDE 0.9% IRRIGATIO 1,00... IRRIGATION ONE; -DEXAMETHASONE SOD PHOSPHATE 10 MG/ML 1 ML VIAL IV ONE; -HYDROmorphone 0.5 MG/0.5 ML SYRINGE IVP PRN; -LACTATED RINGERS 1,000 ML IV SCH; +LIDOCAINE 1% (10MG/ML) FOR IV START INTRADERMA PRN; -ONDANSETRON 4 MG/2 ML VIAL IVP ONE; +TRANEXAMIC 1,000 MG/100ML-NACL 1,000 MG in SALINE 1 100ML.BAG IVPB PRN; -ceFAZolin IN SWFI 2 GM/20 ML SYRINGE IVP ONE
[2023-04-14] MEDS: ACETAMINOPHEN TAB 500 MG TAB PO PRN (09:49)
[2023-04-14] MEDS: GABAPENTIN 300 MG CAP PO PRN (09:49)
[2023-04-14] MEDS: MELOXICAM 7.5 MG TAB PO PRN (09:49)
[2023-04-14] MEDS: LACTATED RINGERS 1,000 ML IV SCH (10:16)
[2023-04-14] MEDS: ONDANSETRON 4 MG/2 ML VIAL IVP ONE (10:23)
[2023-04-14] MEDS: DEXAMETHASONE SOD PHOSPHATE 4 MG/ML 1 ML VIAL IV ONE (10:23)
[2023-04-14] MEDS: METOCLOPRAMIDE 5 MG/ML 2 ML VIAL IVP PRN (10:23)
[2023-04-14] MEDS: MIDAZOLAM 2 MG/2 ML VIAL IVP ONE (11:03)
--- NOTE | 2023-04-14 11:17 | P.ANPRN ---
Procedure Note - Anesthesia - Nerve Block Performed Right Francisco Single Time Out Performed: Yes Date of Procedure: 04/14/23 Procedure Start Time: 11:05 Procedure Stop Time: 11:15 Location of Patient: PreOp Indication: Acute Post-Operative Pain, Analgesia, Requested by Surgeon Sedation Type: Sedate with meaningful contact maintained Preparation: Sterile Prep Position: Supine Catheter: None Needle Types: Pajunk Needle Gauge: 21 Ultrasound used to visualize needle placement: Yes Ultrasound used to observe medication spread: Yes Injectate: 0.5% Ropivacaine (see comment for volume) (Ropiv 25ml+ 4mgDecadron) Blood Aspirated: No Pain Paresthesia on Injection Noted: No Resistance on Injection: Normal Image Stored and Saved: Yes Events: Uneventful and Well Tolerated
[2023-04-14] MEDS ORDERED: LIDOCAINE 1% INJ 10MG/ML (20 ML MDV) ONE (11:57)
[2023-04-14] MEDS ORDERED: ePHEDrine 50 MG/ML 1 ML VIAL ONE (11:57)
[2023-04-14] MEDS ORDERED: PROPOFOL 10 MG/ML 20 ML VIAL IV ONE (11:57)
[2023-04-14] MEDS ORDERED: NEOSTIGMINE 1 MG/ML 10 ML VIAL ONE (11:57)
[2023-04-14] MEDS ORDERED: GLYCOPYRROLATE 0.2 MG/ML 2 ML VIAL ONE (11:57)
[2023-04-14] MEDS ORDERED: SUCCINYLCHOLINE CHLORIDE 200 MG/10 ML VIAL IV ONE (11:57)
[2023-04-14] MEDS ORDERED: ROCURONIUM 10 MG/ML (5 ML VIAL) IV ONE (11:57)
[2023-04-14] MEDS ORDERED: TRANEXAMIC 1,000 MG/100ML-NACL PREMIX BAG ONE (11:57)
[2023-04-14] MEDS ORDERED: MIDAZOLAM 2 MG/2 ML VIAL ONE (11:57)
[2023-04-14] MEDS ORDERED: DEXAMETHASONE SOD PHOSPHATE 4 MG/ML 1 ML VIAL ONE (11:57)
[2023-04-14] MEDS ORDERED: ROPIVACAINE 5 MG/ML 30 ML VIAL ONE (11:57)
[2023-04-14] MEDS ORDERED: fentaNYL (PF) 50 MCG/ML 2 ML AMP ONE (11:57)
[2023-04-14] MEDS: ROPIVACAINE 5 MG/ML 30 ML VIAL MISCELLANE ONE (12:27)
[2023-04-14] MEDS: ceFAZolin 1,000 MG in SODIUM CHLORIDE 0.9% 1,000 ML IRRIGATION ONE (12:29)
[2023-04-14] MEDS: LACTATED RINGERS 1,000 ML IV ONE (12:52)
--- NOTE | 2023-04-14 13:10 | P.OP ---
Date of Procedure: 04/14/23 Preoperative Diagnosis: Severe osteoarthritis right hip Postoperative Diagnosis: Severe osteoarthritis right hip Procedure(s) Performed: Right total hip arthroplasty with a direct anterior approach Implants: [employer] Polarstem standard size 3 with a collar [employer] R3, 3 hole hemispherical acetabular shell, 54 mm [employer]hew Reflection 6.5 mm cancellus screw, 20 mm, 25mm [employer] R3, XLPE 20 acetabular liner [employer]hew Oxinium femoral head 36 mm, +0 All components were press-fit. The articulation is Oxinium on polyethylene. Anesthesia: GETA Surgeon: Justin Kwong Physician Coding Specialist #1: Ella Alcantara Estimated Blood Loss (ml): 250 Pathology: none sent Condition: stable Disposition: PACU Indications for Procedure: After failure of conservative treatment we discussed the surgical and nons urgical treatment options at length. Patient wishes to proceed with a total hip arthroplasty with a direct anterior approach. Complications specific to this procedure were discussed at length, including but not limited to infection, leg length discrepancy, dislocation, nerve injury, and fracture. Covid-19 was also discussed at length with the patient, and they are aware of the current policies and procedures. The patient was given the option of delaying surgery, but they elect to proceed knowing these risks. Patient is aware of all these complications and informed consent was obtained Operative Findings: The operative findings are consistent with severe osteoarthritis of the right hip Description of Procedure: The patient was seen and evaluated in the preoperative area and the consent was reviewed. The operative site was marked with a skin marker. The patient verified the procedure and operative site. A JOE block was placed by anesthesia in the preoperative area. The patient was then brought to the operating room and given preoperative antibiotics intravenously. 1 g of Tranexamic acid was also given intravenously. A general anesthetic was administered by the anesthesia department. The patient was then placed on the Palacios table with the bony prominences well-padded. The hip area was then prepped with a ChloraPrep solution and draped in the usual sterile fashion. A universal timeout was then performed, which confirmed the patient's name, surgical site, ALLERGIES, and procedure being performed on the consent. Next the incision site was located at 1 cm distal and 4 cm lateral to the anterior superior iliac spine. The skin and subcutaneous tissues were sharply incised. Incision was carefully dissected down to the fascia overlying the tensor fascia taylor muscle. This fascia was then incised in line with the muscle fibers. Care was taken to stay laterally in order to avoid injuring the lateral femoral cutaneous nerve. Next, using blunt finger dissection, the tensor fascia taylor muscle was dissected off its investing fascia. The muscle was then carefully retracted laterally with a cobra retractor over the lateral neck of the femur. Next, the circumflex vessels were identified and cauterized using the Aquamantis device. The anterior hip capsule was then exposed. The capsule was then opened and an inverted T fashion. The retractors were then placed intracapsularly. The retractors were maintained intracapsular throughout the procedure. The proximal femur was then visualized. Fluoroscopic x-rays were then taken in order to evaluate the preoperative leg lengths. A small amount of traction was placed on the leg. The femoral neck was then osteotomized at the appropriate level above the lesser trochanter. A small wedge of bone was then removed from the remaining femoral head. Next, using a corkscrew the femoral head was removed from the acetabulum. On gross visual inspection, the femoral head had complete loss of articular cartilage and multiple periarticular osteophytes. The femoral head was then measured. Attention was then turned to the acetabulum. The acetabulum was exposed and any remaining labrum was excised. Sequential reaming of the acetabulum was performed using fluoroscopic guidance until there was a good bed of bleeding cancellus bone. When the appropriate size was reached, a trial was then placed. The position and fit of the trial was checked with fluoroscopy. The trial was then removed. Then, using fluoroscopic guidance, the final implant was impacted at 20 of anteversion and 40 of abduction, and fully seated in the acetabulum. 2 screws were then placed in the acetabulum. Again fluoroscopy was used to check position of the screws. Next, the liner was then impacted, with a 20 elevated liner located in the anterior superior quadrant. Component locking was confirmed. Attention was then directed to the femur. With the aid of the Palacios table, the femur was externally rotated to approximately 130, extended, and adducted under the opposite leg. A side hook was then placed under the proximal femur, and the side hook elevator was used to elevate the proximal femur while releasing the capsule. Retractors were then placed. A capsular release was performed, as well as a release of the conjoined tendon, which afforded excellent visualization of the proximal femur. Next, a box osteotome was used to lateralize the proximal femur. A smoking tobacco packing machine hand was then used to locate the femoral canal. Sequential broaching was then performed with appropriate size which afforded excellent fixation in the proximal femur. A trial was then placed with appropriate head and neck, and the hip was gently reduced with the aid of the Palacios table. Fluoroscopy was then used to check position of the components, as well as to evaluate the leg lengths and offset. The leg lengths and offset were measured as closely as possible to ensure stability of the hip. The hip was then gently dislocated and the trials were then removed. Final implants were then impacted and the hip was again reduced. Final fluoroscopic x-rays confirmed that the components were in anatomic position. The leg lengths and offset were measured and were found to coincide with the trial measurements. The hip was also taken through range of motion, and found to be stable. The hip was then copiously irrigated with antibiotic solution with pulsatile lavage. The hip was then irrigated with Irrisept solution. The soft tissues were then injected with a ropivacaine solution. A second dose of 1 g of Tranexamic acid was also given intravenously. The fascia was then closed with 2-0 strata fix suture. The subcutaneous tissue was closed with 3-0 Vicryl. The subcuticular tissue was closed with 3-0 strata fix suture. The skin was then closed with Exofin skin glue. After the glue and dried, and Optifoam silver impregnated dressing was applied. The patient was then transferred to the recovery room in stable condition. The practice assistant ANUP Garza was required due to the complexity of surgery, and the need for skilled surgical supply assistant for positioning, draping, exposure, retraction, and closure of the wound.
[2023-04-14] MEDS ORDERED: ONDANSETRON 4 MG/2 ML VIAL IVP PRN (13:45)
[2023-04-14] MEDS ORDERED: HYDROmorphone 0.5 MG/0.5 ML SYRINGE IVP PRN ×2 (13:45)
[2023-04-14] MEDS ORDERED: MAGNESIUM HYDROXIDE 2,400 MG/30 ML CUP PO PRN (13:45)
[2023-04-14] MEDS ORDERED: NALOXONE 0.4 MG/ML 1 ML VIAL IV PRN (13:45)
[2023-04-14] MEDS: HYDROmorphone 0.5 MG/0.5 ML SYRINGE IVP PRN ×2 (13:47→15:22)
--- NOTE | 2023-04-14 14:36 | FL ---
EXAMINATION TYPE: FL guidance operating room, XR Hip Limited RT Intraoperative/procedural fluoroscopi c services were provided. Total fluoroscopy time is 41.5 seconds with a total of 3 submitted images t o PACS. Please see the operative/procedural note for further details. DAP: 3.6659 Gycm2
[2023-04-14] MEDS: SODIUM CHLORIDE 0.9% 1,000 ML IV SCH (14:41)
--- NOTE | 2023-04-14 14:52 | XR ---
EXAMINATION TYPE: XR Hip Limited RT DATE OF EXAM: 04/14/2023 2:24 PM CLINICAL INDICATION:Male, 78 years old with history of Status post hip surgery, assess surgical align ment; [facility] COMPARISON: None. TECHNIQUE: XR Hip Limited RT; hip was examined in the frontal and lateral projections and a AP pelvis . FINDINGS: Post arthroplasty changes, hardware is intact, alignment is appropriate. No evidence of fra cture. Postoperative changes of the soft tissues with subcutaneous gas. No evidence of any acute osse ous pathology or joint dislocation. IMPRESSION: Hip arthroplasty with hardware intact and in appropriate alignment. No acute fracture.
[2023-04-14 15:43] VITALS: RESP 18
[2023-04-14] MEDS: HYDROcodone/APAP 7.5-325MG 1 EACH TAB PO PRN (21:06)
[2023-04-14] MEDS: SENNOSIDES-DOCUSATE SODIUM 1 EACH TAB PO SCH (21:07)
[2023-04-14] MEDS: ASPIRIN 325 MG TAB PO SCH (21:07)
[2023-04-15] MEDS: HYDROcodone/APAP 7.5-325MG 1 EACH TAB PO PRN (02:03)
--- NOTE | 2023-04-15 09:36 | P.DS ---
Providers Expected date of discharge: 04/15/23 Attending physician: Justin Kwong Consults: 04/14/23 13:45 Consult Physician Routine Consulting Provider: Bryan Jolly Consult Reason/Comments: medical management Do you want consulting provider notified?: Yes Primary care physician: Bryan Jolly MD - Discharge Diagnosis(es) (1) Osteoarthritis of right hip Current Visit: Yes Status: Acute (2) S/P total hip arthroplasty Current Visit: Yes Status: Acute Hospital Course: This is a 78-year-old male with known history of degenerative arthritis of the right hip. The patient presented for evaluation as an outpatient. After discussion and consideration patient elects to proceed with total hip arthroplasty. The patient is seen preoperatively by Dr. Kwong and medically cleared for surgery by their primary care physician. Patient is admitted to [facility] on 04/14/2023 for total hip arthroplasty. The procedure is performed without complication or sequelae. The patient is doing well postoperatively. Labs and vital signs are stable on day of discharge. On day of discharge patient's hip incision is healing well. There is minimal erythema. There is no drainage noted at this time. There is minimal soft tissue swelling to the hip and thigh. Patient has full foot and ankle motion without difficulty or pain. Calf is soft and nontender to palpation. Neurovascular status to the right lower extremity is intact. Patient is disc harged home in good condition. Please see med rec for accurate list of home medications. Plan - Discharge Summary Discharge Rx Participant: No New Discharge Prescriptions: New HYDROcodone/APAP 7.5-325MG [[place] 7.5-325] 1 - 2 tab PO Q6H PRN #32 tab PRN Reason: Pain Sennosides [Senokot] 2 tab PO DAILY PRN #60 tablet PRN Reason: Constipation Aspirin 325 mg PO BID #60 tab No Action Losartan Potassium 100 mg PO DAILY Atorvastatin [Lipitor] 40 mg PO DAILY Aspirin EC [Ecotrin Low Dose] 81 mg PO DAILY Cholecalciferol (Vitamin D3) [Vitamin D3 (3000 Iu)] 75 mcg PO HS Metoprolol Tartrate [Lopressor] 25 mg PO DAILY #30 tab Zinc Gluconate [Zinc] 50 mg PO DAILY Multivitamins, Thera [Multivitamin (formulary)] 1 tab PO HS Lutein 20 mg PO HS allopurinoL [Zyloprim] 100 mg PO HS Omeprazole [PriLOSEC] 20 mg PO Q2D Magnesium 250 mg PO HS Discharge Medication List Losartan Potassium 100 mg PO DAILY 12/01/14 [History] Atorvastatin [Lipitor] 40 mg PO DAILY 11/04/17 [History] Aspirin EC [Ecotrin Low Dose] 81 mg PO DAILY 11/26/21 [History] Lutein 20 mg PO HS 11/26/21 [History] Multivitamins, Thera [Multivitamin (formulary)] 1 tab PO HS 11/26/21 [History] Zinc Gluconate [Zinc] 50 mg PO DAILY 11/26/21 [History] allopurinoL [Zyloprim] 100 mg PO HS 11/26/21 [History] Cholecalciferol (Vitamin D3) [Vitamin D3 (3000 Iu)] 75 mcg PO HS 03/31/23 [History] Magnesium 250 mg PO HS 03/31/23 [History] Metoprolol Tartrate [Lopressor] 25 mg PO DAILY #30 tab 03/31/23 [Rx] Omeprazole [PriLOSEC] 20 mg PO Q2D 03/31/23 [History] Aspirin 325 mg PO BID #60 tab 04/14/23 [Rx] HYDROcodone/APAP 7.5-325MG [[place] 7.5-325] 1 - 2 tab PO Q6H PRN #32 tab 04/14/23 [Rx] Sennosides [Senokot] 2 tab PO DAILY PRN #60 tablet 04/14/23 [Rx] Follow up Appointment(s)/Referral(s): Justin Kwong DO [Doctor of Osteopathic Medicine] - 2 Weeks Activity/Diet/Wound Care/Special Instructions: Weightbearing as tolerated with walker. Leave dressing intact. Dressing may be removed by home care nurse or by patient in 7 days. Then change dressing twice daily until follow up. May shower with initial dressing intact and after removal. If dressing become saturated, please remove. Please take aspirin 325mg twice daily for 30 days to prevent blood clots. Recommend use of compression stockings daily until follow up to help prevent swelling and blood clots. May remove at night before sleeping. Please follow-up with [facility] in 2 weeks and call with any questions or concerns, . Discharge Disposition: HOME WITH HOME HEALTH SERVICES
[2023-04-15 09:38] VITALS: BP 165/94; PULSE 83; TEMP 98.4
[2023-04-15] MEDS: LOSARTAN 50 MG TAB PO SCH (10:00)
[2023-04-15] MEDS: PANTOPRAZOLE 40 MG TABLET PO SCH (10:00)
[2023-04-15] MEDS: METOPROLOL TARTRATE 25 MG TAB PO SCH (10:00)
[2023-04-15] MEDS: ATORVASTATIN 40 MG TAB PO SCH (10:00)
--- NOTE | 2023-04-15 10:33 | P.CONS ---
History of Present Illness - Reason for Consult Consult date: 04/15/23 Medical management hypertension Requesting physician: Justin Kwong - Chief Complaint Right hip osteoarthritis, status post right total hip arthroplasty - History of Present Illness This is a 78-year-old gentleman with past medical history significant for right hip osteoarthritis, CAD, hypertension, hyperlipidemia, prostate disorder, status post decompression and fusion L4 L4-L5, former nicotine dependence and multiple other medical issues, status post right total hip arthroplasty, anterior approach. Tolerated procedure well. Hypertensive this morning, home medica tions including losartan resumed. PT pending. Pain controlled. Passing flatus, no bowel movement. Denies chest pain, palpitations or shortness of breath. Maintaining O2 sats in the 90s on room air.afebrile, CBC pending. Review of Systems ROS Statement: Those systems with pertinent positive or pertinent negative responses have been documented in the HPI. ROS Other: All systems not noted in ROS Statement are negative. Past Medical History Past Medical History: Coronary Artery Disease (CAD), Cancer, Hyperlipidemia, Hypertension, Musculoskeletal Disorder, Prostate Disorder Additional Past Medical History / Comment(s): LUMBAR PAIN (rods in back ).covid, Bladder cancer History of Any Multi-Drug Resistant Organisms: None Reported Past Surgical History: Appendectomy, Back Surgery, Orthopedic Surgery Additional Past Surgical History / Comment(s): CHRIS ROTATOR CUFF, CHRIS CATARACT SX, LT CAROTID ENDARTECTOMY. COLONOSCOPY. EPIDURALS, LAST 08/2017. Lumbar fusion L4-S1 post transforaminal 11/16/17, Past Anesthesia/Blood Transfusion Reactions: Previous Problems w/ Anesthesia Additional Past Anesthesia/Blood Transfusion Reaction / Comm: B/P DROPPED POST OP Past Psychological History: No Psychological Hx Reported Additional Psychological History / Comment(s): and lives in the family home with his . Retired otr tanker truck driver. Was in the [employer] and was stationed in [place] without specific illnesses, no known agent orange exposure. No current tobacco smoker or alcohol user. No international travel since his days. No animals in the home Smoking Status: Former smoker Past Alcohol Use History: Occasional Additional Past Alcohol Use History / Comment(s): SMOKED 25 YEARS, 2-3 PPD, QUIT 1992 Past Drug Use History: None Reported - Past Family History Sister(s) Family Medical History: Cancer Additional Family Medical History / Comment(s): BLADDER Medications and Allergies Home Medications Medication Instructions Recorded Confirmed Type Losartan Potassium 100 mg PO DAILY 12/01/14 04/14/23 History Atorvastatin [Lipitor] 40 mg PO DAILY 11/04/17 04/14/23 History Aspirin EC [Ecotrin Low Dose] 81 mg PO DAILY 11/26/21 04/14/23 History Lutein 20 mg PO HS 11/26/21 04/14/23 History Multivitamins, Thera [Multivitamin 1 tab PO HS 11/26/21 04/14/23 History (formulary)] Zinc Gluconate [Zinc] 50 mg PO DAILY 11/26/21 04/14/23 History allopurinoL [Zyloprim] 100 mg PO HS 11/26/21 04/14/23 History Cholecalciferol (Vitamin D3) 75 mcg PO HS 03/31/23 04/14/23 History [Vitamin D3 (3000 Iu)] Magnesium 250 mg PO HS 03/31/23 04/14/23 History Metoprolol Tartrate [Lopressor] 25 mg PO DAILY #30 tab 03/31/23 04/14/23 Rx Omeprazole [PriLOSEC] 20 mg PO Q2D 03/31/23 04/14/23 History Aspirin 325 mg PO BID #60 tab 04/14/23 Rx HYDROcodone/APAP 7.5-325MG [[place] 1 - 2 tab PO Q6H PRN #32 tab 04/14/23 Rx 7.5-325] Sennosides [Senokot] 2 tab PO DAILY PRN #60 tablet 04/14/23 Rx Allergies Allergy/AdvReac Type Severity Reaction Status Date / Time No Known Allergies Allergy Verified 04/14/23 09:42 Physical Exam Vitals: Vital Signs Temp Pulse Resp BP BP Pulse Ox 04/15/23 09:21 97 04/15/23 08:00 98.4 F 83 18 165/94 94 L 04/15/23 01:35 98.7 F 86 18 178/76 93 L 04/14/23 19:40 98.6 F 97 18 147/81 97 04/14/23 15:50 88 153/80 04/14/23 15:35 78 160/82 04/14/23 15:19 98 F 61 18 157/82 97 04/14/23 14:30 68 17 131/68 96 04/14/23 14:15 73 18 134/60 97 04/14/23 14:00 67 16 141/67 96 04/14/23 13:50 72 18 138/66 98 04/14/23 13:40 76 16 178/72 96 04/14/23 13:28 97.6 F 80 16 117/72 96 04/14/23 11:15 65 16 133/60 97 04/14/23 11:02 66 14 166/74 96 Intake and Output 04/14/23 04/15/23 04/15/23 22:59 06:59 14:59 Intake Total 118 Balance 118 Intake: Oral 118 Other: Voiding Method Toilet Toilet Urinal # Voids 1 2 PHYSICAL EXAM: VITAL SIGNS: [As above] GENERAL: Alert and oriented x 3, sitting up in bed, no acute distress. HEENT: Normocephalic, atraumatic, conjunctivae normal. eyes normal. MMM. NECK: Supple, no JVD. CARDIOVASCULAR: S1, S2 regular. No murmur RESPIRATION: Unlabored, equal air entry, breath sounds diminished in the bases. No rhonchi or crackles. No bronchial breathing. ABDOMEN: Soft, nontender . No guarding. no masses palpable. Positive bowel sounds. EXTREMITIES: Right lower extremity dressing clean dry and intact, minimal ecchymosis and edema, positive DP pulse NERVOUS SYSTEM: Cranial N 2-12 grossly normal. No focal deficits. Strength and sensation grossly intact. Skin: Warm and dry, no rash Results CBC & Chem 7: 04/15/23 06:51 Assessment and Plan Assessment: Right hip osteoarthritis, failed conservative management, status post right total hip arthroplasty with direct anterior approach Leukocytosis, reactive Postoperative atelectasis, expected outcome Hypertension CAD Hyperlipidemia Prior nicotine dependence Plan: Continue on current medication regimen ,monitoring and symptomatic treatment. Aggressive pulmonary toileting with incentive spirometer reinforced. PT. Hypertensive this a.m. and patient's home medication losartan resumed. Discharge planning in progress as per orthopedic surgery. Follow-up with PCP in 1 week. Thank you for the consult. The impression and plan of care has been dictated as directed. : I performed a history and examination of this patient, discussed the same with the dictator. I agree with the dictator's note ,documented as a scribe. Any additional findings or plans will be noted.
[2023-04-15 11:36] LABS: HCT 37.8 % (39.6-50.0); MCH 30.2 pg (27.0-32.0); MCHC 31.7 g/dL (32.0-37.0); MCV 95.2 FL (80.0-97.0); NRBC Per 100 WBC 0 X 10*3/uL (0.00-0.01); Platelet Count 216 X 10*3/uL (140-440); RBC 3.97 X 10*6/uL (4.40-5.60); RDW 13.5 % (11.5-14.5); WBC 24.54 X 10*3/uL (4.50-10.00)
[2023-04-15 17:49] LABS: Basophils # (M) 0 X 10*3/uL (0.00-0.10); Eosinophils # (M) 0 X 10*3/uL (0.04-0.35); Lymphocytes # (M) 1.47 X 10*3/uL (0.90-5.00); Monocytes # (M) 4.66 X 10*3/uL (0.20-1.00); Neutrophils # (M) 18.41 X 10*3/uL (1.80-7.70); Neutrophils % (M) 75 %
[2023-04-15] MEDS ORDERED: allopurinoL 100 MG TAB PO SCH (21:00)
== END 2023-04-15 12:45 | disposition home health service (06) ==
LOC: OR 08:59 → 4SSUR 13:20 → OR 04-15 12:45
PROVIDERS: ATTEND Orthopaedic Surgery
DX: M16.11 Unilateral primary osteoarthritis, right hip (principal); I10 Essential (primary) hypertension; E78.5 Hyperlipidemia, unspecified; Z79.899 Other long term (current) drug therapy; Z87.891 Personal history of nicotine dependence
CPT/HCPCS: 94760; 97161; 97166; 64447; 85025; 73501; 27130; C1776; J2250; J1100; J2765; J0690 ×3; J2405; J2795; J1170

== ENCOUNTER 2023-10-12 16:31 | Emergency (ER) | payer MEDICARE ==
[~2023-10-12 16:31] MED LIST changes: -LIDOCAINE 1% (10MG/ML) FOR IV START INTRADERMA PRN; +SODIUM CHLORIDE 0.9% 1,000 ML BAG ONE; -TRANEXAMIC 1,000 MG/100ML-NACL 1,000 MG in SALINE 1 100ML.BAG IVPB PRN
== END 2023-10-12 22:35 | disposition home or self-care (01) ==
LOC: EC 16:31
DX: R55 Syncope and collapse (principal)
CPT/HCPCS: 93005; 99283

== ENCOUNTER → 2024-01-07 | Outpatient (CLI) | payer MEDICARE ==
[2024-01-07 15:24] LABS: BUN/Creat Ratio 13.11 Ratio (12.00-20.00); Blood Urea Nitrogen 11.8 mg/dL (9.0-27.0); Calcium 9.5 mg/dL (8.7-10.3); Carbon Dioxide 23.9 mmol/L (21.6-31.8); Chloride 103 mmol/L (96-109); Glucose 114 mg/dL (70-110); Potassium 4.5 mmol/L (3.5-5.5); Sodium 139 mmol/L (135-145)
[2024-01-07 15:26] LABS: HCT 41.1 % (39.6-50.0); HGB 13.8 g/dL (13.0-17.0); MCH 31.3 pg (27.0-32.0); MCHC 33.6 g/dL (32.0-37.0); MCV 93.2 FL (80.0-97.0); Mean Platelet Volume 12.4 FL (9.5-12.2); NRBC Per 100 WBC 0 X 10*3/uL (0.00-0.01); Platelet Count 148 X 10*3/uL (140-440); RBC 4.41 X 10*6/uL (4.40-5.60); RDW 13.4 % (11.5-14.5); WBC 5.44 X 10*3/uL (4.50-10.00)
[2024-01-07 15:55] LABS: Basophils # (A) 0.03 X 10*3/uL (0.00-0.10); Basophils % (A) 0.6 %; Eosinophils # (A) 0.16 X 10*3/uL (0.04-0.35); Eosinophils % (A) 2.9 %; Lymphocytes % (A) 20.2 %; Monocytes # (A) 2.21 X 10*3/uL (0.20-1.00); Monocytes % (A) 40.6 %; Neutrophils # (A) 1.91 X 10*3/uL (1.80-7.70); Neutrophils % (A) 35.1 %
[2024-01-07 15:56] LABS: RBC Morphology Normal (Normal)
[2024-01-07 16:02] LABS: Appearance,Urine Clear (Clear); Bilirubin,Urine Negative (Negative); Blood,Urine Negative (Negative); Color,Urine Yellow (Yellow); Ketones,Urine Negative (Negative); Nitrite,Urine Negative (Negative); PH, Urine 5.5; Specific Gravity,Urine 1.017 (1.001-1.030)
[2024-01-07 16:09] LABS: Bacteria,Urine None Seen (None Seen)
== END | disposition home or self-care (01) ==
LOC: LABWHC1 11:27
PROVIDERS: ATTEND Urology
DX: C67.9 Malignant neoplasm of bladder, unspecified (principal); N35.919 Unspecified urethral stricture, male, unspecified site
CPT/HCPCS: 36415; 80048; 81001; 85025; 87086

== ENCOUNTER 2024-03-10 10:19 | Inpatient (IN) | payer MEDICARE ==
--- NOTE | 2024-03-10 10:44 | ED ---
General Adult HPI - General Chief complaint: Dizziness Stated complaint: DIZZY/NAUSEA Time Seen by Provider: 03/10/24 10:24 Source: patient, family, EMS, RN notes reviewed, old records reviewed Mode of arrival: EMS Limitations: no limitations - History of Present Illness Initial comments: 79-year-old male presenting for evaluation of dizziness which began yesterday and was present throughout the entire day. Patient has had associated nausea and vomiting. He has no chest pain. He denies focal numbness or weakness. I did note on initial history that the speech was somewhat slurred and his states that when the patient woke this morning she had noticed this but did not notice it at 10 PM when the patient went to bed. Patient reports occipital headache throughout the day yesterday. No anticoagulation. No history of cardiac disease. No history of previous CVA. - Related Data Home Medications Medication Instructions Recorded Confirmed Losartan Potassium 100 mg PO DAILY 12/01/14 03/10/24 Atorvastatin [Lipitor] 40 mg PO DAILY 11/04/17 03/10/24 allopurinoL [Zyloprim] 100 mg PO DAILY 11/26/21 03/10/24 Metoprolol Tartrate [Lopressor] 25 mg PO DAILY 03/10/24 03/10/24 Allergies Allergy/AdvReac Type Severity Reaction Status Date / Time acetaminophen [From Vicodin] AdvReac no issue Verified 03/10/24 12:45 wih tylenol plain hydrocodone [From Vicodin] AdvReac Nausea & Verified 03/10/24 12:45 Vomiting Review of Systems ROS Statement: Those systems with pertinent positive or pertinent negative responses have been documented in the HPI. ROS Other: All systems not noted in ROS Statement are negative. Past Medical History Past Medical History: Coronary Artery Disease (CAD), Cancer, Hyperlipidemia, Hypertension, Musculoskeletal Disorder, Prostate Disorder Additional Past Medical History / Comment(s): LUMBAR PAIN (rods in back ).covid, Bladder cancer History of Any Multi-Drug Resistant Organisms: None Reported Past Surgical History: Appendectomy, Back Surgery, Orthopedic Surgery Additional Past Surgical History / Comment(s): CHRIS ROTATOR CUFF, CHRIS CATARACT SX, LT CAROTID ENDARTECTOMY. COLONOSCOPY. EPIDURALS, LAST 08/2017. Lumbar fusion L4-S1 post transforaminal 11/16/17, 04/25 R hip replacement Past Anesthesia/Blood Transfusion Reactions: Previous Problems w/ Anesthesia Additional Past Anesthesia/Blood Transfusion Reaction / Comment(s): B/P DROPPED POST OP Past Psychological History: No Psychological Hx Reported Smoking Status: Former smoker Past Alcohol Use History: Occasional Past Drug Use History: None Reported - Past Family History Sister(s) Family Medical History: Cancer Additional Family Medical History / Comment(s): BLADDER General Exam Limitations: no limitations General appearance: alert, in no apparent distress Head exam: Present: atraumatic, normocephalic Eye exam: Present: normal appearance, PERRL Neck exam: Present: normal inspection. Absent: tenderness, meningismus Respiratory exam: Present: normal lung sounds bilaterally. Absent: respiratory distress, wheezes Cardiovascular Exam: Present: regular rate, normal rhythm GI/Abdominal exam: Present: soft. Absent: distended, tenderness Extremities exam: Present: normal inspection, normal capillary refill. Absent: calf tenderness Neurological exam: Present: alert, oriented X3, CN II-XII intact, motor sensory deficit (Patient has dysarthria and left upper extremity ataxia and slight drift to the left upper extremity, NIH of 3) Psychiatric exam: Present: normal affect, normal mood Skin exam: Present: warm, dry, intact Course Vital Signs 03/10/24 03/10/24 03/10/24 10:21 11:35 12:13 Temperature 97.8 F Pulse Rate 63 58 L 61 Respiratory 18 18 18 Rate Blood Pressure 191/73 179/71 169/87 O2 Sat by Pulse 94 L 94 L 97 Oximetry Medical Decision Making - Medical Decision Making Was pt. sent in by a medical professional or institution (, PA, AUTISM TEACHER, urgent care, hospital, or [place] health [place] facility...) When possible be specific @ -No Did you speak to anyone other than the patient for history (EMS, parent, family, police, friend...)? What history was obtained from this source @ -Patient's is at bedside able to add history Did you review nursing and triage notes (agree or disagree)? Why? @ -I reviewed and agree with nursing and triage notes Were old charts reviewed (outside hosp., previous admission, EMS record, old EKG, old radiological studies, urgent care reports/EKG's, [place] health care facility records)? Report findings @ -No old charts were reviewed Differential CVA Ischemic stroke, hemorrhagic stroke, brain tumor, atypical migraine, Wernicke's encephalopathy, seizure, multiple sclerosis, meningitis, encephalitis, hypoglycemia, Guillain-Marroquin, electrolytes disturbance, myasthenia gravis.... This is not meant to be an all-inclusive list EKG interpreted by me (3pts min.). @Sinus bradycardia with a first-degree AV block rate of 57, VT interval 235, QRS duration 103, QTc [address] segment elevation. X-rays interpreted by me (1pt min.). @ -[Chest x-ray negative for acute cardiopulmonary findings CT interpreted by me (1pt min.). @CT of the brain shows a possible acute stroke in the cerebellum no intracranial hemorrhage, CT angiography is negative for large vessel occlusion U/S interpreted by me (1pt. min.). @ -None done What testing was considered but not performed or refused? (CT, X-rays, U/S, labs)? Why? @ -None What meds were considered but not given or refused? Why? @ -None Did you discuss the management of the patient with other professionals (professionals i.e. , PA, AUTISM TEACHER, lab, RT, psych nurse, nursing home social worker, travel physical therapist, teacher, sanitation officer, special education case manager)? Give summary @stroke activation, patient not a thrombolytic candidate due to onset of symptoms being approximately 24 hours. Patient care discussed with the admitting doctor Dr. Jolly who will admit Was smoking cessation discussed for >3mins.? @ -No Was critical care preformed (if so, how long)? @ -[Yes, 35 minutes Were there social determinants of health that impacted care today? How? (Homelessness, low income, unemployed, alcoholism, drug addiction, transportation, low edu. Level, literacy, decrease access to med. care, senior care, rehab)? @ -No Was there de-escalation of care discussed even if they declined (Discuss DNR or withdrawal of care, Hospice)? DNR status @ -No What co-morbidities impacted this encounter? (DM, HTN, Smoking, COPD, CAD, Cancer, CVA, ARF, Chemo, Hep., AIDS, mental health diagnosis, sleep apnea, morbid obesity)? @Hypertension Was patient admitted / discharged? Hospital course, mention meds given and route, prescriptions, significant lab abnormalities, going to OR and other pertinent info. @ -[79-year-old male presenting with dizziness, vomiting, slurred speech. This patient woke with the speech abnormality but had dizziness throughout the day yesterday. He is ataxic on exam. Stroke activation in the emergency department. Patient received CT CT angiography. There is concern for acute stroke within the cerebellum which does match the patient's symptoms. Patient given aspirin, started on Brilinta and statin. Patient admitted for further stroke evaluation with neurology on consultation. Undiagnosed new problem with uncertain prognosis? @ -No Drug Therapy requiring intensive monitoring for toxicity (Heparin, Nitro, Insul in, Cardizem)? @ -No Were any procedures done? @ -No Diagnosis/symptom? @ -Cerebellar stroke Acute, or Chronic, or Acute on Chronic? @ -[Acute Uncomplicated (without systemic symptoms) or Complicated (systemic symptoms)? @ -Default Side effects of treatment? @ -No Exacerbation, Progression, or Severe Exacerbation? @ -No Poses a threat to life or bodily function? How? (Chest pain, [place], ME, pneumonia, PE, COPD, DKA, ARF, appy, cholecystitis, CVA, Diverticulitis, Homicidal, Suicidal, threat to staff... and all critical care pts) @ -Yes, CVA - Lab Data Result diagrams: 03/10/24 10:34 03/10/24 10:34 Lab Results 03/10/24 03/10/24 03/10/24 Range/Units 10:34 10:34 10:34 WBC 6.0 (3.8-10.6) k/uL RBC 5.01 (4.30-5.90) m/uL Hgb 15.3 (13.0-17.5) gm/dL Hct 45.3 (39.0-53.0) % MCV 90.5 (80.0-100.0) fL MCH 30.5 (25.0-35.0) pg MCHC 33.7 (31.0-37.0) g/dL RDW 14.1 (11.5-15.5) % Plt Count 140 L (150-450) k/uL MPV 9.2 Neutrophils % (Manual) 54 % Lymphocytes % (Manual) 20 % Monocytes % (Manual) 22 % Eosinophils % (Manual) 5 % Neutrophils # (Manual) 3.24 (1.3-7.7) k/uL Lymphocytes # (Manual) 1.20 (1.0-4.8) k/uL Monocytes # (Manual) 1.32 H (0-1.0) k/uL Eosinophils # (Manual) 0.30 (0-0.7) k/uL Nucleated RBCs 0 (0-0) /100 WBC Manual Slide Review Performed RBC Morphology Normal PT 11.5 (10.0-12.5) sec INR 1.0 (<1.2) APTT 25.4 (22.0-30.0) sec Sodium 137 (137-145) mmol/L Potassium 4.0 (3.5-5.1) mmol/L Chloride 103 (98-107) mmol/L Carbon Dioxide 22 (22-30) mmol/L Anion Gap 12 mmol/L BUN 12 (9-20) mg/dL Creatinine 0.78 (0.66-1.25) mg/dL Est GFR (CKD-EPI)AfAm >90 (>60 ml/min/1.73 sqM) Est GFR (CKD-EPI)NonAf 86 (>60 ml/min/1.73 sqM) Glucose 153 H (74-99) mg/dL Calcium 9.5 (8.4-10.2) mg/dL Total Bilirubin 1.0 (0.2-1.3) mg/dL AST 27 (17-59) U/L ALT 26 (4-49) U/L Alkaline Phosphatase 113 (38-126) U/L Creatine Kinase 60 (55-170) U/L Troponin I (0.000-0.034) ng/mL Total Protein 7.4 (6.3-8.2) g/dL Albumin 4.6 (3.5-5.0) g/dL 03/10/24 Range/Units 10:34 WBC (3.8-10.6) k/uL RBC (4.30-5.90) m/uL Hgb (13.0-17.5) gm/dL Hct (39.0-53.0) % MCV (80.0-100.0) fL MCH (25.0-35.0) pg MCHC (31.0-37.0) g/dL RDW (11.5-15.5) % Plt Count (150-450) k/uL MPV Neutrophils % (Manual) % Lymphocytes % (Manual) % Monocytes % (Manual) % Eosinophils % (Manual) % Neutrophils # (Manual) (1.3-7.7) k/uL Lymphocytes # (Manual) (1.0-4.8) k/uL Monocytes # (Manual) (0-1.0) k/uL Eosinophils # (Manual) (0-0.7) k/uL Nucleated RBCs (0-0) /100 WBC Manual Slide Review RBC Morphology PT (10.0-12.5) sec INR (<1.2) APTT (22.0-30.0) sec Sodium (137-145) mmol/L Potassium (3.5-5.1) mmol/L Chloride (98-107) mmol/L Carbon Dioxide (22-30) mmol/L Anion Gap mmol/L BUN (9-20) mg/dL Creatinine (0.66-1.25) mg/dL Est GFR (CKD-EPI)AfAm (>60 ml/min/1.73 sqM) Est GFR (CKD-EPI)NonAf (>60 ml/min/1.73 sqM) Glucose (74-99) mg/dL Calcium (8.4-10.2) mg/dL Total Bilirubin (0.2-1.3) mg/dL AST (17-59) U/L ALT (4-49) U/L Alkaline Phosphatase (38-126) U/L Creatine Kinase (55-170) U/L Troponin I <0.012 (0.000-0.034) ng/mL Total Protein (6.3-8.2) g/dL Albumin (3.5-5.0) g/dL Critical Care Time Critical Care Time: Yes Total Critical Care Time: 35 Disposition Clinical Impression: Cerebrovascular accident (CVA) Disposition: ADMITTED IP TO THIS [facility] Condition: Stable Is patient prescribed a controlled substance at d/c from ED?: No Time of Disposition: 13:13
[2024-03-10] MEDS: SODIUM CHLORIDE 0.9% 1,000 ML IV STA (10:59)
[2024-03-10] MEDS: ONDANSETRON 4 MG/2 ML VIAL IVP STA ×2 (11:00→12:32)
[2024-03-10 11:04] LABS: HCT 45.3 % (39.0-53.0); HGB 15.3 gm/dL (13.0-17.5); MCH 30.5 pg (25.0-35.0); MCHC 33.7 g/dL (31.0-37.0); MCV 90.5 fL (80.0-100.0); Mean Platelet Volume 9.2; Platelet Count 140 k/uL (150-450); RBC 5.01 m/uL (4.30-5.90); RDW 14.1 % (11.5-15.5)
[2024-03-10 11:06] LABS: Partial Thromboplastin Time 25.4 sec (22.0-30.0); Prothrombin Time 11.5 sec (10.0-12.5)
[2024-03-10 11:11] LABS: ALT 26 U/L (4-49); AST 27 U/L (17-59); African American GFR (CKD) >90 (>60 ml/min/1.73 sqM); Albumin 4.6 g/dL (3.5-5.0); Alkaline Phosphatase 113 U/L (38-126); Anion Gap 12 mmol/L; Blood Urea Nitrogen 12 mg/dL (9-20); Calcium 9.5 mg/dL (8.4-10.2); Carbon Dioxide 22 mmol/L (22-30); Chloride 103 mmol/L (98-107); Creatine Kinase 60 U/L (55-170); Glucose 153 mg/dL (74-99); Non-African American GFR(CKD) 86 (>60 ml/min/1.73 sqM); Sodium 137 mmol/L (137-145); Total Protein 7.4 g/dL (6.3-8.2)
--- NOTE | 2024-03-10 11:11 | XR ---
EXAMINATION TYPE: XR chest 2V DATE OF EXAM: 03/10/2024 11:00 AM COMPARISON: Chest x-ray CT chest March 31, 2023 CLINICAL INDICATION: Male, 79 years old with history of altered mental status, TECHNIQUE: Frontal and lateral views of the chest are obtained. FINDINGS: There is persistent right-sided volume loss. There is persistent calcified pleural plaques bilaterally There is no. Suspicious new Focal air space opacity, pleural effusion, or pneumothorax s een. The cardiac silhouette size is stable and mildly enlarged. Multilevel spurring in the thoracic spine is redemonstrated. IMPRESSION: Chronic changes without acute pulmonary process. [facility], , 03/10/2024 11:08 AM
--- NOTE | 2024-03-10 11:14 | CT ---
EXAMINATION TYPE: CODE STROKE: CT brain wo contr DATE OF EXAM: 03/10/2024 COMPARISON: CT brain January 01, 2018 CLINICAL INDICATION: Male, 79 years old with history of Neuro deficit, acute, stroke suspected; [facility], AMS TECHNIQUE: CT scan of the head is performed without contrast. CT DLP: 1164.9 mGycm Automated exposure control for dose reduction was used. FINDINGS: There is no acute intracranial hemorrhage or midline shift identified. There is mild to m oderate diffuse ventricular and sulcal prominence redemonstrated. There is moderate low-attenuation in the deep and periventricular white matter redemonstrated. There is new vague area of diminished si gnal involving the lateral left cerebellar hemisphere. Bilateral aphakia redemonstrated. The visualiz ed sinuses are clear. IMPRESSION: No acute intracranial hemorrhage or midline shift. There is new vague area lateral left cerebellum which could reflect evolving acute/subacute infarct. Need to further investigated by MRI should be based on clinical correlation. [facility], , 03/10/2024 11:12 AM
[2024-03-10] MEDS: ASPIRIN 325 MG TAB PO STA (11:36)
[2024-03-10 11:51] LABS: Monocytes # (M) 1.32 k/uL (0-1.0); Neutrophils # (M) 3.24 k/uL (1.3-7.7); Neutrophils % (M) 54 %; Nucleated Red Blood Cells 0 /100 WBC (0-0); RBC Morphology Normal; Total Cells Counted 200
--- NOTE | 2024-03-10 12:34 | CT ---
EXAMINATION TYPE: CT angio head neck DATE OF EXAM: 03/10/2024 COMPARISON: None. CLINICAL INDICATION: Male, 79 years old with history of Neuro deficit, acute, stroke suspected; [facility], AMS TECHNIQUE: CTA scan of the head and neck is performed with IV Contrast, patient injected with 65 mL of Isovue 370, axial images are obtained, coronal and sagittal reformatted images are reviewed. 3D re constructed images are created on an independent workstation and reviewed. CT DLP: 694.3 mGycm Automated exposure control for dose reduction was used. NASCET criteria was used in interpretation of this exam? FINDINGS: Right Carotid System: The common carotid artery and external carotid artery are patent. The carotid bifurcation demonstrate s no evidence of hemodynamically significant stenosis. Severe calcified plaque right carotid bulb ext ending into the proximal internal carotid artery. Stenosis approaching 150% is felt present. The andrews ining portions of the internal carotid artery demonstrate normal size without significant narrowing. Left Carotid System: The common carotid artery and external carotid artery are patent. The carotid bifurcation demonstrate s no evidence of hemodynamically significant stenosis. Surgical change at left carotid bulb is presen t. Severe calcified plaque proximal internal carotid artery does not show significant stenosis Left vertebral artery is dominant and patent to the basilar artery. Patent bilateral posterior commun icating arteries an anterior communicating artery are seen. No large vessel occlusion or aneurysm at level of the [place]. [id number] peripheral calcified plaque distal internal carotid arteries bilaterally. There is a three-vessel aortic arch. The origins of the great vessels are patent. No evidence of hemo dynamically significant stenosis. Other: Multilevel spurring and disc space narrowing in the cervical thoracic spine. Focal mild to mod erate pleural/parenchymal scarring in the lung apices extending posteriorly IMPRESSION: 1. No abdomen of significant stenosis at the carotid bifurcations. No large vessel occlusion or ane urysm at the level of the [place]. [facility], , 03/10/2024 12:31 PM
[2024-03-10] MEDS: SODIUM CHLORIDE 0.9% 1,000 ML IV SCH (13:32)
[2024-03-10] MEDS: TICAGRELOR 90 MG TAB PO STA (13:33)
[2024-03-10] MEDS: ATORVASTATIN 80 MG TAB PO STA (13:33)
[2024-03-10 17:23] LABS: Appearance,Urine Clear (Clear); Bilirubin,Urine Negative (Negative); Blood,Urine Negative (Negative); Color,Urine Colorless; Glucose,Urine (UA) Negative (Negative); Ketones,Urine Negative (Negative); Leukocyte Esterase,Urine Negative (Negative); Nitrite,Urine Negative (Negative); PH, Urine 6.5 (5.0-8.0); Protein,Urine Negative (Negative); Specific Gravity,Urine 1.032 (1.001-1.035); Urobilinogen,Urine <2.0 mg/dL (<2.0)
[2024-03-10] MEDS: TICAGRELOR 90 MG TAB PO SCH (22:28)
[2024-03-11] MEDS: METOPROLOL SUCCINATE (ER) 25 MG TAB.ER.24H PO SCH (06:30)
[2024-03-11] MEDS: LOSARTAN 50 MG TAB PO SCH (06:31)
[2024-03-11] MEDS: allopurinoL 100 MG TAB PO SCH (08:38)
[2024-03-11] MEDS: ATORVASTATIN 40 MG TAB PO SCH (08:38)
[2024-03-11] MEDS: ACETAMINOPHEN TAB 325 MG TAB PO PRN (08:39)
[2024-03-11 08:56] LABS: Chol/HDL Ratio 2.35 Ratio; VLDL Calculation 13.22 mg/dL (5.00-40.00)
[2024-03-11] MEDS ORDERED: METOPROLOL SUCCINATE (ER) 25 MG TAB.ER.24H PO SCH (09:00)
--- NOTE | 2024-03-11 09:42 | P.CNNES ---
History of Present Illness Consult date: 03/10/24 Requesting physician: Amadeo Madrid Reason for Consult: CVA History of Present Illness: Patient is a 79-year-old right-handed male with history of hypertension, X tobacco use, came to the hospital for acute onset of dizziness. Patient's was also present and they provided with a history. Patient yesterday morning woke up at 7:30 AM with not feeling well. When he went to the bathroom, he was feeling lightheaded, wobbly, dizzy. He stayed in bed most of the day, with no appetite. He denied any headache although later complained of some back of the neck or base of the head hurting. He was feeling wobbly, unsteady, dizzy each time going to the bathroom. He described it as pressure inside the head, wobbly feeling but no spinning. This morning he woke up and still feeling dizzy, vomited and only phlegm came up, and his eyes were glassy, speech was slightly slurred therefore patient's brought him to the hospital and he arrived at 10:19 AM. Since yesterday he has vomited about 5 times. Patient's has not noticed any facial droop, diplopia. No history of head or neck injury. He does not go to chiropractors. No numbness or tingling of the extremities. Vital signs on arrival blood pressure 191/73, which came down to 179/71. Persistent city temperature 97.8. Blood test shows normal CBC PT/PTT, normal CMP. Troponin negative. UA negative. EKG showed sinus bradycardia with first-degree AV block, chest x-ray showed chronic changes without acute pulmonary process. CT head revealed no acute intracranial hemorrhage or midline shift. There is new vague area lateral left cerebellum which could reflect evolving acute/subacute infarct. I personally reviewed CT head, agree with the findings. Patient has hypertension, denies diabetes. No history of strokes or TIA. No previous history of headaches or migraines. He smoked 2 packs per day for 34 years, quit at age 48 (1993). Patient has not drank alcohol for long time. Patient's home medications include Lipitor 40 mg, losartan 100 mg, allopurinol and metoprolol. Patient used to take aspirin 81 mg daily since he was in 40s, but stopped taking aspirin 3 weeks ago for no reasons. Review of Systems All pertinent positive and negative uses as mentioned in the HPI, otherwise unremarkable. He does have peripheral neuropathy in the feet. Denies any chest pain, shortness of breath, abdominal pain. Past Medical History Past Medical History: Coronary Artery Disease (CAD), Cancer, Hyperlipidemia, Hypertension, Musculoskeletal Disorder, Prostate Disorder Additional Past Medical History / Comment(s): LUMBAR PAIN (rods in back ).covid, Bladder cancer History of Any Multi-Drug Resistant Organisms: None Reported Past Surgical History: Appendectomy, Back Surgery, Orthopedic Surgery Additional Past Surgical History / Comment(s): CHRIS ROTATOR CUFF, CHRIS CATARACT SX, LT CAROTID ENDARTECTOMY. COLONOSCOPY. EPIDURALS, LAST 08/2017. Lumbar fusion L4-S1 post transforaminal 11/16/17, 04/25 R hip replacement Past Anesthesia/Blood Transfusion Reactions: Previous Problems w/ Anesthesia Additional Past Anesthesia/Blood Transfusion Reaction / Comment(s): B/P DROPPED POST OP Past Psychological History: No Psychological Hx Reported Smoking Status: Former smoker Past Alcohol Use History: Occasional Past Drug Use History: None Reported - Past Family History Sister(s) Family Medical History: Cancer Additional Family Medical History / Comment(s): BLADDER Medications and Allergies Home Medications Medication Instructions Recorded Confirmed Type Losartan Potassium 100 mg PO DAILY 12/01/14 03/10/24 History Atorvastatin [Lipitor] 40 mg PO DAILY 11/04/17 03/10/24 History allopurinoL [Zyloprim] 100 mg PO DAILY 11/26/21 03/10/24 History Metoprolol Tartrate [Lopressor] 25 mg PO DAILY 03/10/24 03/10/24 History Allergies Allergy/AdvReac Type Severity Reaction Status Date / Time acetaminophen [From Vicodin] AdvReac no issue Verified 03/10/24 12:45 wih tylenol plain hydrocodone [From Vicodin] AdvReac Nausea & Verified 03/10/24 12:45 Vomiting Physical Examination - Vital Signs Vital Signs: Vital Signs Temp Pulse Resp BP Pulse Ox 03/10/24 17:28 78 20 155/78 97 03/10/24 16:17 74 18 164/75 97 03/10/24 14:40 58 L 18 158/69 95 03/10/24 12:13 61 18 169/87 97 03/10/24 11:35 58 L 18 179/71 94 L 03/10/24 10:21 97.8 F 63 18 191/73 94 L Intake and Output 03/10/24 03/10/24 03/10/24 06:59 14:59 22:59 Other: Weight 106.594 kg Patient is an elderly male, very pleasant, in no acute distress. Patient is slightly somnolent, but does wake up and becomes alert awake oriented to time place and person. Speech and language functions are normal. Patient can name and repeat very well. No aphasia or dysarthria. Attention, concentration and fund of knowledge is adequate. On cranial nerve examination, pupils are equal, round and reacting to light, visual harris are full on confrontation, with no neglect on double simultaneous stimulation. Extraocular muscles are intact with no nystagmus. Face is symmet jamey, tongue protrudes to the midline. Palatal elevation and sensation normal, hearing and shoulder shrug normal, facial sensation normal. On muscle strength testing, there is no pronator drift and the strength is normal in arms and legs distally and proximally. Deep tendon reflexes are symmetric biceps 1, brachioradialis 1, knees trace to 1, and ankles 0. Plantars are downgoing. Sensory to touch is equal with no neglect on double simultaneous stimulation. Cerebellar function showed ataxia for [id number] and esxi-[id number] testing only on the left side (left arm and left leg). No ataxia on the right side. Tone and bulk of muscles normal. Gait deferred.. On general examination, there is no carotid bruit or murmur, S1-S2 audible. Chest is clear on consultation. Abdomen is soft nontender. No organomegaly, bowel sounds present. Peripheral pulses are present. No peripheral edema. 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 Probably embolic in nature. No evidence of vertebral artery dissection reported on CTA. * Hypertension * Coronary artery disease * Hyperlipidemia * History of left carotid endarterectomy * X tobacco use Plan: * Patient has presented with acute left cerebellar stroke. Patient was not a ca ndidate for TNK, as he came outside the window for TNK. No large vessel occlusion noted on the CTA. * MRI of the brain without contrast, evaluate for acute CVA * 2-D echo with bubble study to rule out PFO * CTA head and neck showed: No evidence of significant stenosis at the carotid bifurcations. No large vessel occlusion or aneurysm at the level of platinum of [place]. * Fasting a.m. lipid panel cholesterol 131, LDL 62, HDL 55 and triglycerides 66. Lipids are well controlled. Continue Lipitor 40 mg daily (home dose). * Hemoglobin A1c 5.9 * Permissive hypertension for next 24-48 hours, but keep blood pressure < 180/110. * Patient used to take aspirin 81 mg daily for a long time, stopped taking it 3 weeks ago for no clear reason. Patient started on aspirin and Brilinta in the ER. * Neuro checks every 2 hours. * Telemetry monitoring rule out any arrhythmia * PT, OT, speech therapy * DVT prophylaxis: Heparin 5000 units subcu every 12 hours * Neurology will continue to follow. Thank you for the consult. Time with Patient: Greater than 30
[2024-03-11] MEDS: HEPARIN SODIUM,PORCINE 5,000 UNIT/ML 1 ML VIAL SQ SCH (10:47)
[2024-03-11] MEDS: ONDANSETRON 4 MG/2 ML VIAL IVP STA (12:55)
[2024-03-11] MEDS: ONDANSETRON 4 MG/2 ML VIAL IVP PRN (12:58)
--- NOTE | 2024-03-11 13:36 | CA ---
Transthoracic Echo Report Name: Da Braden Age: 79 Gender: M : 1945 Exam Date: 03/10/2024 14:44 Exam Location: [facility] Ht (in): 74 Wt (lb): 235 Ordering Physician: Amadeo Madrid MD Attending/Referring Phys: [id number], [employer] Mell Pink RDCS Procedure CPT: Indications: Thrombus Cardiac Hx: Technical Quality: Fair Contrast 1: Total Dose (mL): Contrast 2: Total Dose (mL): MEASUREMENTS (Male / Female) Normal Values 2D ECHO LV Diastolic Diameter PLAX 5.0 cm 4.2 - 5.9 / 3.9 - 5.3 cm LV Systolic Diameter PLAX 3.1 cm IVS Diastolic Thickness 1.2 cm 0.6 - 1.0 / 0.6 - 0.9 cm LVPW Diastolic Thickness 1.2 cm 0.6 - 1.0 / 0.6 - 0.9 cm LV Relative Wall Thickness 0.5 RV Internal Dim ED PLAX 3.2 cm LA Systolic Diameter LX 3.5 cm 3.0 - 4.0 / 2.7 - 3.8 cm LV Diastolic Volume MOD 4C 142.3 cm??? LV Systolic Volume MOD 4C 64.6 cm??? LV Ejection Fraction MOD 4C 54.6 % LV Cardiac Index MOD 4C 1630.1 cm???/min???m??? LV Diastolic Length 4C 9.7 cm LV Systolic Length 4C 7.8 cm LV Diastolic Volume MOD 2C 129.1 cm??? LV Systolic Volume MOD 2C 64.6 cm??? LV Ejection Fraction MOD 2C 49.9 % LV Cardiac Index MOD 2C 1352.3 cm???/min???m??? LV Diastolic Length 2C 9.8 cm LV Systolic Length 2C 8.4 cm LA Volume 78.1 cm??? 18 - 58 / 22 - 52 cm??? LA Volume Index 32.8 cm???/m??? 16 - 28 cm???/m??? M-MODE Aortic Root Diameter MM 4.0 cm AV Cusp Separation MM 2.6 cm DOPPLER AV Peak Velocity 189.7 cm/s AV Peak Gradient 14.4 mmHg AV Mean Velocity 123.9 cm/s AV Mean Gradient 6.9 mmHg AV Velocity Time Integral 44.0 cm AI Peak Velocity 321.8 cm/s AI Peak Gradient 41.4 mmHg AI Pressure Half Time 793.0 ms LVOT Peak Velocity 127.4 cm/s LVOT Peak Gradient 6.5 mmHg LVOT Velocity Time Integral 32.4 cm MV Area PHT 2.2 cm??? Mitral E Point Velocity 75.1 cm/s Mitral A Point Velocity 103.2 cm/s Mitral E to A Ratio 0.7 MV Deceleration Time 351.2 ms TR Peak Velocity 222.0 cm/s TR Peak Gradient 19.7 mmHg Right Ventricular Systolic Press 24.1 mmHg FINDINGS Left Ventricle Left ventricular ejection fraction is estimated at 55-60 %. Left ventricular cavity size normal. Mildly increased septal wall thickness. Normal left ventricular wall motion. Right Ventricle Normal right ventricular size. Right ventricular systolic pressure within normal limits. Right Atrium Normal right atrial size. No right atrial thrombus or mass seen. Left Atrium Mildly increased left atrial volume. No left atrial thrombus or mass present. Mitral Valve Mitral valve thickened. No mitral stenosis, regurgitation or prolapse. Mitral annular calcification. Aortic Valve Aortic valve not well visualized. Thickened aortic valve without stenosis. Mild aortic regurgitation. Tricuspid Valve Structurally normal tricuspid valve. Mild tricuspid regurgitation. Pulmonic Valve Pulmonic valve not well visualized. Pericardium No pericardial or pleural effusion. Aorta Mild aortic dilatation at the level of the sinuses of valsalva 40 mm CONCLUSIONS LVEF 55 to 60% No obvious regional wall motion abnormality Mild to moderate aortic regurgitation. Calcified aortic valve Mild mitral annular calcification Mildly dilated aortic root at 40 mm Previewed by: Dr Reagan Knight (Electronically Signed) Final Date: 11 March 2024 13:35
[2024-03-11] MEDS: METOCLOPRAMIDE 5 MG/ML 2 ML VIAL IVP PRN (15:05)
--- NOTE | 2024-03-11 16:51 | P.HPIM ---
History of Present Illness H&P Date: 03/11/24 Chief Complaint: HUONG Is a 79-year-old gentleman with past medical history significant for peripheral vascular disease hypertension, hyperlipidemia, COVID ,prostate disorder, muscle skeletal disorder, former nicotine dependence, [place] and multiple other medical issues presented to the ER with complaints of waking up not feeling well yesterday morning. States he had gotten up to go to the bathroom, felt dizzy, lightheaded with headache/pressure of entire head, nausea . Denied blurred vision. Reported his equilibrium was off,pulling to the left side. This morning continued to have dizziness, nausea and vomiting, minimally slurred speech and presented to the ER. Denies syncope. Denies falls or head trauma .denies numbness or tingling of extremities. On admission, hypertensive, afebrile, normal WBC. Hematology, coagulation and chemistry panels unremark able. UA negative.Brain CT reported no acute intracranial hemorrhage or midline shift, new vague area lateral left cerebellum could reflect evolving acute/subacute infarct.CT angio head and neck noted, reporting no evidence of significant stenosis at the carotid bifurcations, no large vessel occlusion or aneurysm at the level of the ak chin of [place] . Echo reporting normal LV function 55 to 60%, mild to moderate aortic regurgitation, calcified aortic valve, mildly dilated aortic root at 40 mm.EKG reported sinus bradycardia with first-degree AV block.Chest x-ray reported chronic changes without acute pulmonary process. Neurology following. Review of Systems ROS Statement: Those systems with pertinent positive or pertinent negative responses have been documented in the HPI. ROS Other: All systems not noted in ROS Statement are negative. Past Medical History Past Medical History: Coronary Artery Disease (CAD), Cancer, Hyperlipidemia, Hypertension, Musculoskeletal Disorder, Prostate Disorder Additional Past Medical History / Comment(s): LUMBAR PAIN (rods in back ).covid, Bladder cancer History of Any Multi-Drug Resistant Organisms: None Reported Past Surgical History: Appendectomy, Back Surgery, Orthopedic Surgery Additional Past Surgical History / Comment(s): CHRIS ROTATOR CUFF, CHRIS CATARACT SX, LT CAROTID ENDARTECTOMY. COLONOSCOPY. EPIDURALS, LAST 08/2017. Lumbar fusion L4-S1 post transforaminal 11/16/17, 04/25 R hip replacement Past Anesthesia/Blood Transfusion Reactions: Previous Problems w/ Anesthesia Additional Past Anesthesia/Blood Transfusion Reaction / Comment(s): B/P DROPPED POST OP Past Psychological History: No Psychological Hx Reported Smoking Status: Former smoker Past Alcohol Use History: Occasional Past Drug Use History: None Reported - Past Family History Sister(s) Family Medical History: Cancer Additional Family Medical History / Comment(s): BLADDER Medications and Allergies Home Medications Medication Instructions Recorded Confirmed Type Losartan Potassium 100 mg PO DAILY 12/01/14 03/10/24 History Atorvastatin [Lipitor] 40 mg PO DAILY 11/04/17 03/10/24 History allopurinoL [Zyloprim] 100 mg PO DAILY 11/26/21 03/10/24 History Metoprolol Tartrate [Lopressor] 25 mg PO DAILY 03/10/24 03/10/24 History Allergies Allergy/AdvReac Type Severity Reaction Status Date / Time acetaminophen [From Vicodin] AdvReac no issue Verified 03/10/24 12:45 wih tylenol plain hydrocodone [From Vicodin] AdvReac Nausea & Verified 03/10/24 12:45 Vomiting Physical Exam Vitals: Vital Signs Temp Pulse Resp BP Pulse Ox 03/11/24 15:04 55 L 18 196/82 98 03/11/24 11:56 56 L 18 167/77 97 03/11/24 08:00 63 17 181/90 98 03/11/24 06:26 97.9 F 68 20 168/71 97 03/11/24 04:09 98.0 F 64 20 182/76 97 03/11/24 00:00 75 18 170/70 98 03/10/24 22:00 64 18 154/60 98 03/10/24 21:00 60 18 140/56 97 03/10/24 17:28 78 20 155/78 97 PHYSICAL EXAM: VITAL SIGNS: [As above] GENERAL: Well-nourished ,alert and oriented x 3, sitting up on stretcher, no acute distress. Speech fluent and clear. HEENT: Normocephalic, atraumatic, conjunctivae normal. eyes normal. MMM. NECK: Supple, no JVD. No thyroid enlargement. No LNs CARDIOVASCULAR: S1, S2 regular. Systolic murmur RESPIRATION: Unlabored, equal air entry, CTA with bilateral bases diminished. ABDOMEN: Soft, nondistended, diffuse tenderness ,no guarding. no masses palpable. No ascites, No hepatosplenomegaly.Bowel sounds heard. LEGS: No edema. no swelling PSYCHIATRY: Alert and oriented X3, mood and affect normal. NERVOUS SYSTEM: Cranial N 2-12 grossly normal. Leaning to the left on stretcher-positive left sided ataxia. Strength and sensation grossly intact. 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 Telemetry monitoring, neurochecks .neurology workup in progress. PT OT ST consulted. Brain MRI ordered. Aspirin and Brilinta initiated in the ER as per neurology. The impression and plan of care has been dictated as directed. : I performed a history and examination of this patient, discussed the same with the dictator. I agree with the dictator's note ,documented as a scribe. Any additional findings or plans will be noted.
[2024-03-11] MEDS: SPIRONOLACTONE 25 MG TAB PO STA (17:30)
[2024-03-11] MEDS: MECLIZINE 25 MG TAB PO PRN (18:34)
--- NOTE | 2024-03-11 21:39 | CT ---
EXAMINATION TYPE: CT brain wo con DATE OF EXAM: 03/11/2024 9:26 PM COMPARISON: 03/20/2024, 01/01/2018 CLINICAL INDICATION: Male, 79 years old with history of Followup CVA, f/u cva TECHNIQUE: CT of the brain is performed utilizing 3 mm thick sections through the posterior fossa and 3 mm thick sections through the remaining calvarium. Study is performed within 24 hours of arrival to the hospital. Contrast used: mL of , (none if empty) CT DLP: 1227.5 mGycm, Automated exposure control for dose reduction was used. FINDINGS: No abnormal hyperdensity is present to suggest an acute intracranial hemorrhage. There is some increasing hypodensity within the left cerebellum. Some mild shift of the ventricle tow ards the right is now evident. Quadrigeminal plate and ambient cistern on the left has some new compr ession. Evolving infarct most likely within the differential. Chronic appearing periventricular white matter hypodensity is present likely on the basis of chronic white matter ischemic changes. Ventricles and sulci away from the left cerebellar infarct are prominent for the patient age. Paranasal sinuses and mastoid air cells within the [id number] are clear. IMPRESSION: 1. There may be evolving left cerebellar infarct with increasing mass effect and some early displac ement of the fourth ventricle towards the right and mild effacement of the quadrigeminal plate and le ft ambient cistern. Close follow-up recommended. Report was called to patient's nurse Johann by Dr. Ronel rodriguez by telephone at time of interpretation. [facility], , 03/11/2024 9:36 PM
[2024-03-12] MEDS: ASPIRIN 81 MG PO SCH (09:00)
[2024-03-12] MEDS: amLODIPine 10 MG TAB PO SCH (10:08)
[2024-03-12] MEDS ORDERED: hydrALAZINE HCL 20 MG/ML 1 ML VIAL IVP PRN (13:02)
[2024-03-12 13:35] LABS: Glucose,Whole Blood 135 mg/dL (70-110)
--- NOTE | 2024-03-12 14:03 | P.PN ---
Subjective Progress Note Date: 03/12/24 Is a 79-year-old gentleman with past medical history significant for peripheral vascular disease hypertension, hyperlipidemia, COVID ,prostate disorder, muscle skeletal disorder, former nicotine dependence, [place] and multiple other medical issues presented to the ER with complaints of waking up not feeling well yesterday morning. States he had gotten up to go to the bathroom, felt dizzy, lightheaded with headache/pressure of entire head, nausea . Denied blurred vision. Reported his equilibrium was off,pulling to the left side. This morning continued to have dizziness, nausea and vomiting, minimally slurred speech and presented to the ER. Denies syncope. Denies falls or head trauma .d enies numbness or tingling of extremities. On admission, hypertensive, afebrile, normal WBC. Hematology, coagulation and chemistry panels unremarkable. UA negative.Brain CT reported no acute intracranial hemorrhage or midline shift, new vague area lateral left cerebellum could reflect evolving ac shanda/subacute infarct.CT angio head and neck noted, reporting no evidence of significant stenosis at the carotid bifurcations, no large vessel occlusion or aneurysm at the level of the [place] . Echo reporting normal LV function 55 to 60%, mild to moderate aortic regurgitation, calcified aortic valve, mildly dilated aortic root at 40 mm.EKG reported sinus bradycardia with first-degree AV block.Chest x-ray reported chronic changes without acute pulmonary process. Neurology following. 03/12/2024 Patient is evaluated in follow-up on the 3 S. cardiac unit with at the bedside. Patient continues to report profound dizziness and nausea he is unable to sit up at this point and states that lying on his left side is the only thing that he is able to tolerate. He is not having any focal weakness he is alert and oriented at this time. His repeat brain CT completed last night reveals evolving left cerebellar infarct with increasing mass effect and some early displacement of the fourth ventricle towards the right and mild effacement of the quadrigeminal place and left ambient cistern. Follow-up recommended. Neurology has evaluated patient today and with concern for the findings on the brain CT has recommended that patient be transferred to tertiary care for neurosurgery at [facility] has been notified and awaiting callback at this time for an accepting internal medicine, ob scrub tech and neurosurgeon. Has meclizine as needed as well as Zofran as needed for supportive and symptomatic care. No labs are available today. Neurology was recommending transfer to ICU in the interim and patient will be started on a 3% hypertonic saline drip running at 50 mL/h. Review of Systems Constitutional: Denied any fatigue denied any fever. Cardio vascular: denied any chest pain, palpitations Gastrointestinal: Reports nausea. Pulmonary: Denied any shortness of breath cough Neurologic reports dizziness and lightheadedness All inpatient medications were reviewed and appropriate changes in these medications as dictated in the interval history and assessment and plan PHYSICAL EXAMINATION: GENERAL: The patient is alert and oriented x3, not in any acute distress. Well developed, well nourished. HEENT: Pupils are round and equally reacting to light. EOMI. No scleral icterus. No conjunctival pallor. Normocephalic, atraumatic. No pharyngeal erythema. No thyromegaly. CARDIOVASCULAR: S1 and S2 present. No murmurs, rubs, or gallops. PULMONARY: Chest is clear to auscultation, no wheezing or crackles. ABDOMEN: Soft, nontender, nondistended, normoactive bowel sounds. No palpable organomegaly. MUSCULOSKELETAL: No joint swelling or deformity. EXTREMITIES: No cyanosis, clubbing, or pedal edema. NEUROLOGICAL: Gross neurological examination did not reveal any focal deficits. No Focal deficits SKIN: No rashes. 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 Continue losartan, metoprolol. Amlodpinine was added Goal to keep systolic blood pressure less than 180. PRN IV hypdralazine has been added for systolic blood pressures greater than 180. Continue symptomatic care with PRN meclizine and PRN zofran. Continue aspirin 81 mg daily, continue brilinta 90 mg PO BID Check a BMP, CBC Neurology consultation, Acetylene Burner consultation in place The impression and plan of care has been dictated by Amy Silver, Nurse Practitioner as directed. Dr. Jud MD I have performed a history and physical examination and medical decision making of this patient, discussed the same with the dictator, and agree with the dictators assessment and plan as written, documented as a scribe. Based on total visit time, I have performed more than 50% of this visit. Objective - Vital Signs Vital signs: Vital Signs Temp 97.8 F 03/12/24 12:05 Pulse 50 L 03/12/24 12:05 Resp 17 03/12/24 12:05 BP 172/64 03/12/24 12:05 Pulse Ox 97 03/12/24 12:05 FiO2 Intake & Output 03/11/24 03/12/24 03/12/24 18:59 06:59 18:59 Output Total 450 Balance -450 Weight 111.5 kg Output: Urine 450 Other: Voiding Method Urinal Urinal - Labs CBC & Chem 7: 03/10/24 10:34 03/10/24 10:34 Assessment and Plan Time with Patient: Less than 30
[2024-03-12 14:28] LABS: HCT 43.2 % (39.0-53.0); HGB 14.3 gm/dL (13.0-17.5); MCH 30.7 pg (25.0-35.0); MCHC 33.2 g/dL (31.0-37.0); MCV 92.6 fL (80.0-100.0); Mean Platelet Volume 9.2; Platelet Count 130 k/uL (150-450); RBC 4.66 m/uL (4.30-5.90); RDW 13.7 % (11.5-15.5); WBC 8.9 k/uL (3.8-10.6)
[2024-03-12] MEDS: SODIUM CHLORIDE 3%(HYPERTONIC) 500 ML IV SCH (14:53)
[2024-03-12 15:08] LABS: ALT 30 U/L (4-49); AST 33 U/L (17-59); African American GFR (CKD) >90 (>60 ml/min/1.73 sqM); Albumin 4.1 g/dL (3.5-5.0); Alkaline Phosphatase 93 U/L (38-126); Anion Gap 7 mmol/L; Blood Urea Nitrogen 12 mg/dL (9-20); Calcium 8.9 mg/dL (8.4-10.2); Carbon Dioxide 26 mmol/L (22-30); Chloride 106 mmol/L (98-107); Glucose 143 mg/dL (74-99); Magnesium 2.3 mg/dL (1.6-2.3); Non-African American GFR(CKD) 86 (>60 ml/min/1.73 sqM); Potassium 4.1 mmol/L (3.5-5.1); Sodium 139 mmol/L (137-145); Total Bilirubin 1.2 mg/dL (0.2-1.3); Total Protein 6.7 g/dL (6.3-8.2)
--- NOTE | 2024-03-12 15:27 | P.PN ---
Subjective Progress Note Date: 03/11/24 Patient was seen for a follow-up. Patient's daughter was present by the bedside. They mentioned that patient is not doing very well. Patient is alert and orientated very well, no slurring, no confusion and he has passed swallow. However every time he moves, makes him sick, dizzy and when he sits up. He has a headache which he rates 8/10. He has been vomiting. Patient appears lethargic. Objective - Vital Signs Vital signs: Vital Signs Temp 97.9 F 03/11/24 06:26 Pulse 56 L 03/11/24 18:00 Resp 17 03/11/24 18:00 BP 176/86 03/11/24 18:00 Pulse Ox 98 03/11/24 18:00 FiO2 - Exam Patient is somewhat somnolent, slightly drowsy. Speech and language functions are normal. Continues to have left-sided ataxia. - Labs CBC & Chem 7: 03/10/24 10:34 03/12/24 14:19 Assessment and Plan Assessment: * Acute to subacute left cerebellar stroke, moderate size. Probably embolic in nature. No evidence of vertebral artery dissection reported on CTA. * Hypertension * Coronary artery disease * Hyperlipidemia * History of left carotid endarterectomy * X tobacco use Plan: * Patient has presented with acute left cerebellar stroke. Patient was not a candidate for TNK, as he came outside the window for TNK. No large vessel occlusion noted on the CTA. * Patient appears slightly more drowsy. Repeat CT head now. * 2-D echo revealed LVEF 55 to 60%. Normal left ventricular wall motion. Mildly increased septal wall thickness. Mildly increased left atrial volume. Normal right atrial size. Mild to moderate AR. Calcified aortic valve. Mildly dilated aortic root at 40 mm. * CTA head and neck showed: No evidence of significant stenosis at the carotid bifurcations. No large vessel occlusion or aneurysm at the level of [place]. * Fasting a.m. lipid panel cholesterol 131, LDL 62, HDL 55 and triglycerides 66. Lipids are well controlled. Continue Lipitor 40 mg daily (home dose). * Hemoglobin A1c 5.9 * Optimize control of blood pressure. * Patient used to take aspirin 81 mg daily for a long time, stopped taking it 3 weeks ago for no clear reason. Patient started on aspirin and Brilinta 90 mg twice daily in the ER. * Neuro checks every 2 hours. * Telemetry monitoring rule out any arrhythmia * PT, OT, speech therapy * DVT prophylaxis: Heparin 5000 units subcu every 12 hours * Discussed with family members.
--- NOTE | 2024-03-12 15:35 | P.PN ---
Subjective Progress Note Date: 03/12/24 Patient was seen for a follow-up. Patient's , and 2 daughters were present today. Patient states he is feeling somewhat better. Patient vomited once. He complains of pressure in the head. He was given meclizine. They mentioned that patient has passed swallow. However every time he moves, makes him sick, dizzy and when he sits up. He has a headache which he rates 5/10. Patient appears lethargic. Objective - Vital Signs Vital signs: Vital Signs Temp 98.1 F 03/12/24 13:40 Pulse 49 L 03/12/24 14:10 Resp 10 L 03/12/24 14:10 BP 159/64 03/12/24 14:10 Pulse Ox 96 03/12/24 14:10 FiO2 Intake & Output 03/11/24 03/12/24 03/12/24 18:59 06:59 18:59 Intake Total 100 Output Total 450 Balance -450 100 Weight 111.5 kg Intake: IV 100 Sodium Chloride 0.9% 1, 100 000 ml @ 100 mls/hr IV . Q10H [facility] Rx#:[id number] Output: Urine 450 Other: Voiding Method Urinal Urinal - Exam Patient is laying on the left side. He is not participating in the conversation, until he was asked. Then he became alert and awake and answered appropriately. He went on his back and there is no facial droop. Speech and language functions are normal. Cranial nerves revealed normal visual harris. Extraocular muscles are intact, but he has prominent nystagmus looking to the left. Face is symmetric and tongue protrudes to midline. Muscle strength is normal. Patient has ataxia for [id number] and [id number] testing on the left side. Sensory to touch is equal. - Labs CBC & Chem 7: 03/10/24 10:34 03/12/24 14:19 Labs: Abnormal Lab Results - Last 24 Hours (Table) 03/12/24 03/12/24 Range/Units 13:33 14:19 Glucose 143 H (74-99) mg/dL POC Glucose (mg/dL) 135 H (70-110) mg/dL Assessment and Plan Assessment: * Acute to subacute left cerebellar stroke, moderate size, with increasing mass effect and some early displacement of the fourth ventricle towards the right and mild effacement of the quadrigeminal plate and left ambient cistern.. * Hypertension * Coronary artery disease * Hyperlipidemia * History of left carotid endarterectomy * X tobacco use Plan: * Repeat CT head performed 03/11/2024 revealed may be evolving left cerebellar infarct with increasing mass effect and some early displacement of the fourth ventricle towards the right and mild effacement of the quadrigeminal plate and left ambient cistern. Close follow-up recommended. I personally reviewed CT head agree with the findings. * I discussed with stroke neurologist Dr. Carlton, and informed about patient's condition and CT head. He agreed for patient to be transferred to higher level of care for neurosurgical consultation and observation. In case patient needs EVD placement or suboccipital craniotomy, he would be at appropriate place. * Dr. Carlton agreed to be started on hypertonic saline at 50 cc/h. Although hypertonic saline does not work as well for posterior circulation problems, but will give the benefits of the doubt * Patient to be transferred to ICU for further management. Discussed with ICU team. * I discussed with patient's family and primary physician, and they agreed. We will try to transfer to [facility]. * 2-D echo revealed LVEF 55 to 60%. Normal left ventricular wall motion. Mildly increased septal wall thickness. Mildly increased left atrial volume. Normal right atrial size. Mild to moderate AR. Calcified aortic valve. Mildly dilated aortic root at 40 mm. * CTA head and neck showed: No evidence of significant stenosis at the carotid bifurcations. No large vessel occlusion or aneurysm at the level of [place]. * Fasting a.m. lipid panel cholesterol 131, LDL 62, HDL 55 and triglycerides 66. Lipids are well controlled. Continue Lipitor 40 mg daily (home dose). * Hemoglobin A1c 5.9 * Optimize control of blood pressure. * Patient used to take aspirin 81 mg daily for a long time, stopped taking it 3 weeks ago for no clear reason. Patient started on aspirin and Brilinta 90 mg twice daily in the ER. * Neuro checks every 2 hours. * Telemetry monitoring rule out any arrhythmia * PT, OT, speech therapy * DVT prophylaxis: Heparin 5000 units subcu every 12 hours * Discussed with family members.
[2024-03-12 16:10] VITALS: TEMP 98.4
[2024-03-12 16:22] LABS: Band Neutrophils % 3 %; Lymphocytes # (M) 1.51 k/uL (1.0-4.8); Metamyelocytes # (M) 0.09 k/uL (0); Metamyelocytes % 1 %; Monocytes # (M) 0.62 k/uL (0-1.0); Myelocytes # (M) 0.09 k/uL (0); Myelocytes % 1 %; Neutrophils % (M) 72 %; Nucleated Red Blood Cells 0 /100 WBC (0-0); Total Cells Counted 200
[2024-03-12 18:32] VITALS: BP 173/95; PULSE 54; RESP 12
== END 2024-03-12 18:45 | disposition short-term general hospital (02) | DRG 66 ==
LOC: EC 10:19 → 3SCARD 12:57 → 2SICU 03-12 13:28
PROVIDERS: ADMIT Family Medicine; ATTEND Family Medicine
DX: I63.442 Cerebral infarction due to embolism of left cerebellar artery (principal); I10 Essential (primary) hypertension; I44.0 Atrioventricular block, first degree; R00.1 Bradycardia, unspecified; G62.9 Polyneuropathy, unspecified; I25.10 Atherosclerotic heart disease of native coronary artery without angina pectoris; E78.5 Hyperlipidemia, unspecified; G89.29 Other chronic pain; M54.50 Low back pain, unspecified; I70.8 Atherosclerosis of other arteries; I35.8 Other nonrheumatic aortic valve disorders; G93.89 Other specified disorders of brain; Z88.6 Allergy status to analgesic agent; Z79.899 Other long term (current) drug therapy; Z88.5 Allergy status to narcotic agent; Z87.891 Personal history of nicotine dependence
CPT/HCPCS: 36415; 70450; 70496; 70498; 71046; 80053; 80061; 81003; 82550; 83036; 83735; 84295; 84484; 85025; 85610; 85730; 93005; 93306; 96361; 96372; 96374; 96375; 96376; 99291

== ENCOUNTER 2024-08-16 12:42 | Emergency (ER) | payer MEDICARE ==
[2024-08-16 12:49] VITALS: TEMP 97
--- NOTE | 2024-08-16 13:14 | ED ---
General Adult HPI - General Chief complaint: Syncope Stated complaint: Syncope Time Seen by Provider: 08/16/24 12:44 Source: patient Mode of arrival: EMS - History of Present Illness Initial comments: Dictation was produced using [employer] dictation software. please excuse any grammatical, word or spelling errors. Chief Complaint: 79-year-old male with presyncope History of Present Illness: Patient 79-year-old male he was completing his physical therapy treatment due to stroke symptoms. He was about done when all of a sudden he became diaphoretic and faint. EMS was called and they are concerned that he was having a recurrent stroke. Patient denies any focal neurologic deficits. States that he felt a little lightheaded. Patient [place] any history of syncope. No chest pain. No palpitations. Patient was brought in by EMS states that his vitals and blood sugar were within normal limits. Patient at the bedside feels fine does not have any complaints. The ROS documented in this emergency department record has been reviewed and confirmed by me. Those systems with pertinent positive or negative responses have been documented in the HPI. All other systems are other negative and/or noncontributory. - Related Data Home Medications Medication Instructions Recorded Confirmed Losartan Potassium 100 mg PO DAILY 12/01/14 08/16/24 Atorvastatin [Lipitor] 40 mg PO DAILY@1730 11/04/17 08/16/24 allopurinoL [Zyloprim] 100 mg PO BID 11/26/21 08/16/24 Aspirin EC [Ecotrin Low Dose] 81 mg PO DAILY 04/02/24 08/16/24 carvediloL [Coreg] 6.25 mg PO BID 04/02/24 08/16/24 amLODIPine [Norvasc] 10 mg PO DAILY@1200 08/16/24 08/16/24 hydroCHLOROthiazide [Hydrodiuril] 25 mg PO DAILY 08/16/24 08/16/24 Previous Rx's Medication Instructions Recorded Apixaban [Eliquis] 5 mg PO BID 30 Days #60 tab 04/11/24 Allergies Allergy/AdvReac Type Severity Reaction Status Date / Time acetaminophen [From Vicodin] AdvReac no issue Verified 08/16/24 14:07 wih tylenol plain hydrocodone [From Vicodin] AdvReac Nausea & Verified 08/16/24 14:07 Vomiting Review of Systems ROS Statement: Those systems with pertinent positive or pertinent negative responses have been documented in the HPI. ROS Other: All systems not noted in ROS Statement are negative. Past Medical History Past Medical History: Coronary Artery Disease (CAD), Cancer, CVA/TIA, Hyperlipidemia, Hypertension, Musculoskeletal Disorder, Prostate Disorder Additional Past Medical History / Comment(s): LUMBAR PAIN (rods in back ).covid, Bladder cancer History of Any Multi-Drug Resistant Organisms: None Reported Past Surgical History: Appendectomy, Back Surgery, Orthopedic Surgery Additional Past Surgical History / Comment(s): CHRIS ROTATOR CUFF, CHRIS CATARACT SX, LT CAROTID ENDARTECTOMY. COLONOSCOPY. EPIDURALS, LAST 08/2017. Lumbar fusion L4-S1 post transforaminal 11/16/17, 04/25 R hip replacement Past Anesthesia/Blood Transfusion Reactions: Previous Problems w/ Anesthesia Additional Past Anesthesia/Blood Transfusion Reaction / Comment(s): B/P DROPPED POST OP Past Psychological History: No Psychological Hx Reported Smoking Status: Former smoker Past Alcohol Use History: Occasional Past Drug Use History: None Reported - Past Family History Sister(s) Family Medical History: Cancer Additional Family Medical History / Comment(s): BLADDER General Exam - General Exam Comments Initial Comments: PHYSICAL EXAM: General Impression: Alert and oriented x3, not in acute distress HEENT: Normocephalic atraumatic, extra-ocular movements intact, pupils equal and reactive to light bilaterally, mucous membranes moist. Cardiovascular: Heart regular rate and rhythm Chest: Able to complete full sentences, no retractions, no tachypnea Abdomen: abdomen soft, non-tender, non-distended, no organomegaly Musculoskeletal: Pulses present and equal in all extremities, no peripheral edema Motor: no focal deficits noted Neurological: CN II-XII grossly intact, no focal motor or sensory deficits noted Skin: Intact with no visualized rashes Psych: Normal affect and mood Course Vital Signs 08/16/24 08/16/24 12:45 13:28 Temperature 97 F L Pulse Rate 59 L 54 L Respiratory 18 20 Rate Blood Pressure 125/62 116/58 O2 Sat by Pulse 96 94 L Oximetry EKG Findings - EKG Comments: EKG Findings:: My EKG interpretation: Ventricular rate 56, sinus bradycardia VA interval 259, cures 113, QTc 469. No VA prolongation, no QTC prolongation, no ST or T-wave changes noted. Overall, this EKG is unremarkable Medical Decision Making - Medical Decision Making Was pt. sent in by a medical professional or institution (, PA, STORE SALES MANAGER, urgent care, hospital, or long-term...) When possible be specific @ -No Did you speak to anyone other than the patient for history (EMS, parent, family, police, friend...)? What history was obtained from this source @ -Some history obtained from EMS as described above Did you review nursing and triage notes (agree or disagree)? Why? @ -I reviewed and agree with nursing and triage notes Were old charts reviewed (outside hosp., previous admission, EMS record, old EKG, old radiological studies, urgent care reports/EKG's, long-term records)? Report findings @ -No old charts were reviewed Differential Diagnosis (chest pain, altered mental status, abdominal pain women, abdominal pain men, vaginal bleeding, musculoskeletal, weakness, fever, dyspnea, syncope, headache, dizziness, GI bleed, back pain, seizure, CVA, palpatations, mental health)? @ -Differential Syncope: Valvular disease, hypertrophic cardiomyopathy, pulmonary embolism, tamponade, tachycardia, bradycardia, NE, hypovolemia, hemorrhage, dissection, anemia, intracranial hemorrhage, seizure, hypoglycemia, carbon monoxide poisoning, this is not meant to be an all-inclusive list. EKG interpreted by me (3pts min.). @ -See above X-rays interpreted by me (1pt min.). @ -Chest x-ray shows no acute processes CT interpreted by me (1pt min.). @ -None done U/S interpreted by me (1pt. min.). @ -None done What testing was considered but not performed or refused? (CT, X-rays, U/S, labs)? Why? @ -None What meds were considered but not given or refused? Why? @ -None Was smoking cessation discussed for >3mins.? @ -No Were there social determinants of health that impacted care today? How? (Homelessness, low income, unemployed, alcoholism, drug addiction, transportation, low edu. Level, literacy, decrease access to med. care, [facility], rehab)? @ -No Was there de-escalation of care discussed even if they declined (Discuss DNR or withdrawal of care, Hospice)? DNR status @ -No What co-morbidities impacted this encounter? (DM, HTN, Smoking, COPD, CAD, Cancer, CVA, ARF, Chemo, Hep., AIDS, mental health diagnosis, sleep apnea, morbid obesity)? @ -None Was patient admitted / discharged? Hospital course, mention meds given and route, prescriptions, significant lab abnormalities, going to OR and other pertinent info. @ -79-year-old male presents to the emergency department for presyncope and diaphoresis. Vital signs stable. Laboratory evaluation obtained. Patient feel s well. Suspect dehydration based on metabolic panel. Otherwise labs unremarkable. Patient given IV fluids. She was emergency department for 3 hours. Reevaluated at bedside at 3:37 PM found to be in stable medical edition is ambulatory without complications. Patient discharged advised follow-up with primary care doctor. Did you discuss the management of the patient with other professionals ( professionals i.e. , PA, STORE SALES MANAGER, lab, RT, psych nurse, hospital social worker, warp changer, teacher, duty officer, caseworker intake)? Give summary @ -No Was critical care preformed (if so, how long)? @ -No Undiagnosed new problem with uncertain prognosis? @ -No Drug Therapy requiring intensive monitoring for toxicity (Heparin, Nitro, Insulin, Cardizem)? @ -No Were any procedures done? @ -No Diagnosis/symptom? Acute, or Chronic, or Acute on Chronic? Uncomplicated (without systemic symptoms) or Complicated (systemic symptoms)? @ -Presyncope Side effects of treatment? @ -No Exacerbation, Progression, or Severe Exacerbation? @ -No Poses a threat to life or bodily function? How? (Chest pain, [place], NE, pneumonia, PE, COPD, DKA, ARF, appy, cholecystitis, CVA, Diverticulitis, Homicidal, Suicidal, threat to staff... and all critical care pts) @ -Yes - Lab Data Result diagrams: 08/16/24 13:03 08/16/24 13:03 Lab Results 08/16/24 08/16/24 08/16/24 Range/Units 13:03 13:03 13:03 WBC 7.16 (4.50-10.00) 10*3/uL RBC 4.43 (4.40-5.60) 10*6/uL Hgb 13.0 (13.0-17.0) g/dL Hct 38.4 L (39.6-50.0) % MCV 86.7 (80.0-97.0) fL MCH 29.3 (27.0-32.0) pg MCHC 33.9 (32.0-37.0) g/dL Plt Count 157 (140-440) 10*3/uL MPV 11.9 (9.5-12.2) fL Immature Gran % (Auto) 0.8 % Neutrophils % STORE SALES MANAGER Lymphocytes % STORE SALES MANAGER Monocytes % STORE SALES MANAGER Eosinophils % STORE SALES MANAGER Basophils % STORE SALES MANAGER Immature Gran # 0.06 H (0.00-0.04) 10*3/uL Neutrophils # STORE SALES MANAGER Lymphocytes # STORE SALES MANAGER Monocytes # STORE SALES MANAGER Eosinophils # STORE SALES MANAGER Basophils # STORE SALES MANAGER Manual Slide Review Performed PT 12.1 (10.0-12.5) sec INR 1.1 (<1.2) APTT 28.8 (22.0-30.0) sec Sodium 137 (137-145) mmol/L Potassium 3.7 (3.5-5.1) mmol/L Chloride 102 (98-107) mmol/L Carbon Dioxide 21 L (22-30) mmol/L Anion Gap 14 mmol/L BUN 23 H (9-20) mg/dL Creatinine 1.06 (0.66-1.25) mg/dL Est GFR (CKD-EPI)AfAm 77 (>60 ml/min/1.73 sqM) Est GFR (CKD-EPI)NonAf 67 (>60 ml/min/1.73 sqM) Glucose 148 H (74-99) mg/dL Calcium 9.8 (8.4-10.2) mg/dL Total Bilirubin 0.8 (0.2-1.3) mg/dL AST 23 (17-59) U/L ALT 23 (4-49) U/L Alkaline Phosphatase 109 (38-126) U/L Troponin I (0.000-0.034) ng/mL Total Protein 6.9 (6.3-8.2) g/dL Albumin 4.3 (3.5-5.0) g/dL 08/16/24 Range/Units 13:03 WBC (4.50-10.00) 10*3/uL RBC (4.40-5.60) 10*6/uL Hgb (13.0-17.0) g/dL Hct (39.6-50.0) % MCV (80.0-97.0) fL MCH (27.0-32.0) pg MCHC (32.0-37.0) g/dL Plt Count (140-440) 10*3/uL MPV (9.5-12.2) fL Immature Gran % (Auto) % Neutrophils % Lymphocytes % Monocytes % Eosinophils % Basophils % Immature Gran # (0.00-0.04) 10*3/uL Neutrophils # Lymphocytes # Monocytes # Eosinophils # Basophils # Manual Slide Review PT (10.0-12.5) sec INR (<1.2) APTT (22.0-30.0) sec Sodium (137-145) mmol/L Potassium (3.5-5.1) mmol/L Chloride (98-107) mmol/L Carbon Dioxide (22-30) mmol/L Anion Gap mmol/L BUN (9-20) mg/dL Creatinine (0.66-1.25) mg/dL Est GFR (CKD-EPI)AfAm (>60 ml/min/1.73 sqM) Est GFR (CKD-EPI)NonAf (>60 ml/min/1.73 sqM) Glucose (74-99) mg/dL Calcium (8.4-10.2) mg/dL Total Bilirubin (0.2-1.3) mg/dL AST (17-59) U/L ALT (4-49) U/L Alkaline Phosphatase (38-126) U/L Troponin I <0.012 (0.000-0.034) ng/mL Total Protein (6.3-8.2) g/dL Albumin (3.5-5.0) g/dL Disposition Clinical Impression: Pre-syncope Disposition: HOME SELF-CARE Condition: Fair Instructions (If sedation given, give patient instructions): Near Syncope (ED) Is patient prescribed a controlled substance at d/c from ED?: No Referrals: Bryan Jolly MD [Primary Care Provider] - 1-2 days Time of Disposition: 15:38
[2024-08-16 13:29] LABS: HCT 38.4 % (39.6-50.0); MCH 29.3 pg (27.0-32.0); MCHC 33.9 g/dL (32.0-37.0); MCV 86.7 fL (80.0-97.0); Mean Platelet Volume 11.9 fL (9.5-12.2); Platelet Count 157 10*3/uL (140-440); RBC 4.43 10*6/uL (4.40-5.60); RDW 14.1 % (11.5-14.5); WBC 7.16 10*3/uL (4.50-10.00)
[2024-08-16 13:31] VITALS: RESP 20
--- NOTE | 2024-08-16 13:38 | XR ---
EXAMINATION TYPE: XR chest 2V DATE OF EXAM: 08/16/2024 1:23 PM COMPARISON: Chest radiographs from 04/02/2024. CLINICAL INDICATION: Male, 79 years old with history of syncope; [facility] TECHNIQUE: XR chest 2V Frontal and lateral views of the chest. FINDINGS: Lungs/Pleura: Low lung volumes are present. There is no evidence of pleural effusion, focal consolida tion, or pneumothorax. Pulmonary vascularity: Unremarkable. Heart/mediastinum: Cardiomediastinal silhouette is enlarged. Musculoskeletal: No acute osseous pathology. IMPRESSION: Low lung volumes with a generalized hazy appearance which could represent atelectasis versus pulmonar y edema correlate with serum BNP. [facility], , 08/16/2024 1:36 PM
[2024-08-16 13:47] LABS: ALT 23 U/L (4-49); AST 23 U/L (17-59); African American GFR (CKD) 77 (>60 ml/min/1.73 sqM); Albumin 4.3 g/dL (3.5-5.0); Alkaline Phosphatase 109 U/L (38-126); Anion Gap 14 mmol/L; Blood Urea Nitrogen 23 mg/dL (9-20); Calcium 9.8 mg/dL (8.4-10.2); Carbon Dioxide 21 mmol/L (22-30); Chloride 102 mmol/L (98-107); Glucose 148 mg/dL (74-99); Non-African American GFR(CKD) 67 (>60 ml/min/1.73 sqM); Potassium 3.7 mmol/L (3.5-5.1); Sodium 137 mmol/L (137-145); Total Bilirubin 0.8 mg/dL (0.2-1.3); Total Protein 6.9 g/dL (6.3-8.2)
[2024-08-16 13:56] LABS: INR 1.1 (<1.2); Partial Thromboplastin Time 28.8 sec (22.0-30.0); Prothrombin Time 12.1 sec (10.0-12.5)
[2024-08-16] MEDS: SODIUM CHLORIDE 0.9% 1,000 ML IV STA (14:41)
[2024-08-16 16:05] VITALS: BP 134/84; PULSE 56
== END 2024-08-16 16:05 | disposition home or self-care (01) ==
LOC: EC 12:42
DX: R55 Syncope and collapse (principal); R00.1 Bradycardia, unspecified; Z88.5 Allergy status to narcotic agent; Z88.6 Allergy status to analgesic agent; Z86.16 Personal history of COVID-19; Z87.891 Personal history of nicotine dependence; Z86.73 Personal history of transient ischemic attack (TIA), and cerebral infarction without residual deficits
CPT/HCPCS: 36415; 71046; 80053; 84484; 85025; 85610; 85730; 93005; 96360; 99285

== ENCOUNTER → 2024-08-17 | Outpatient (CLI) | payer MEDICARE ==
[2024-08-17 18:29] LABS: Blood Urea Nitrogen 16.9 mg/dL (9.0-27.0); Calcium 9.6 mg/dL (8.7-10.3); Carbon Dioxide 28.3 mmol/L (21.6-31.8); Chloride 101 mmol/L (96-109); Glucose 117 mg/dL (70-110); Potassium 4.1 mmol/L (3.5-5.5); Sodium 140 mmol/L (135-145)
== END | disposition home or self-care (01) ==
LOC: LABWHC1 11:42
PROVIDERS: ATTEND Internal Medicine Interventional Cardiology
DX: I10 Essential (primary) hypertension (principal)
CPT/HCPCS: 36415; 80048